=== PATIENT | male | born 1975 | race Two or more races ===

== ENCOUNTER → 2017-01-09 | Outpatient (REF) | payer OTHER | LOC: M SMT 13:07 | PROVIDERS: ATTEND Urology | DX: Z30.2 Encounter for sterilization (principal) ==

== ENCOUNTER → 2017-04-05 | Outpatient (REF) | payer OTHER ==
[2017-04-05 13:21] LABS: IMMMOTILE SPERM CENTRIFUGED ABSENT (ABSENT); IMMOTILE SPERM ABSENT (ABSENT); MOTILE SPERM ABSENT (ABSENT); MOTILE SPERM CENTRIFUGED ABSENT (ABSENT)
== END ==
LOC: M SMT 12:48
PROVIDERS: ATTEND Urology
DX: Z98.52 Vasectomy status (principal)

== ENCOUNTER 2018-01-27 20:23 | Emergency (ER) | payer OTHER ==
[2018-01-27 21:17] LABS: BASO % 0.4 % (0.0-1.0); EOS # 0.1 10^3/uL (0.0-0.50); EOS % 1.3 % (0.0-3.0); HEMATOCRIT 43.6 % (42.0-52.0); HEMOGLOBIN 15.2 g/dl (13.5-17.5); LYMPH # 1.5 10^3/uL (1.5-4.5); LYMPH % 31.7 % (24.0-44.0); MEAN CORPUSCULAR HEMOGLOBIN 29.6 pg (27.0-33.0); MEAN CORPUSCULAR HGB CONC 34.9 g/dl (32.0-36.5); MONO # 0.3 10^3/uL (0.0-0.8); MONO % 5.4 % (0.0-5.0); NEUTROPHILS # 2.8 10^3/uL (1.8-7.7); NEUTROPHILS % 61.2 % (36.0-66.0); PLATELET COUNT, AUTOMATED 159 10^3/uL (150-450); RED BLOOD COUNT 5.13 10^6/uL (4.30-6.10); RED CELL DISTRIBUTION WIDTH 12.1 % (11.5-14.5); WHITE BLOOD COUNT 4.6 10^3/uL (4.0-10.0)
[2018-01-27 21:21] LABS: INR 0.94; PROTHROMBIN TIME 12.7 SECONDS (12.1-14.4)
[2018-01-27 21:22] LABS: PARTIAL THROMBOPLASTIN TIME 29.7 SECONDS (25.4-37.6)
[2018-01-27 21:34] LABS: ANION GAP 9 MEQ/L (8-16); BLOOD UREA NITROGEN 14 MG/DL (7-18); C REACTIVE PROTEIN QUANTITATIV < 0.30 MG/DL (0.00-0.30); CALCIUM LEVEL 8.2 MG/DL (8.5-10.1); CARBON DIOXIDE LEVEL 27 MEQ/L (21-32); CHLORIDE LEVEL 108 MEQ/L (98-107); CPK CREATINE PHOSPHOKINASE 191 U/L (39-308); CREATININE FOR GFR 1.04 MG/DL (0.70-1.30); GLOMERULAR FILTRATION RATE > 60.0 (>60); GLUCOSE, FASTING 106 MG/DL (70-100); POTASSIUM SERUM 3.5 MEQ/L (3.5-5.1); SODIUM LEVEL 144 MEQ/L (136-145); TROPONIN I < 0.02 NG/ML (< 0.10)
[2018-01-27] MEDS ORDERED: ISOVUE-370 76% 100ML VIAL (Q9967) As Ordered (21:44)
[2018-01-27] MEDS: GI COCKTAIL 50ML BTL(HYOSCYAMINE/MAALOX/LIDOCAINE VISCOUS)(1:3:1) PO (21:45)
[2018-01-27] MEDS: NS 1,000 ML IV (23:23)
[2018-01-27 23:41] LABS: CPK CREATINE PHOSPHOKINASE 175 U/L (39-308); MB/CK RELATIVE INDEX 1.09 (< OR =4); TROPONIN I < 0.02 NG/ML (< 0.10)
== END 2018-01-28 00:17 | disposition home or self-care (01) ==
LOC: M ED 01-28 00:17
DX: R07.89 Other chest pain (principal); Q23.1 Congenital insufficiency of aortic valve; K21.9 Gastro-esophageal reflux disease without esophagitis; I71.2 Thoracic aortic aneurysm, without rupture; Z79.899 Other long term (current) drug therapy; Z88.8 Allergy status to other drugs, medicaments and biological substances; J30.81 Allergic rhinitis due to animal (cat) (dog) hair and dander
CPT/HCPCS: Q9967

== ENCOUNTER 2018-07-22 07:08 | Emergency (ER) | payer OTHER ==
[~2018-07-22] VITALS: Ht 205.7 cm; Wt 98.6 kg
[~2018-07-22 07:08] MED LIST: IBUP-1114 PO
[2018-07-22] MEDS ORDERED: VITA-112 PO (07:16)
[2018-07-22] MEDS ORDERED: PROBCAP14 PO (07:16)
[2018-07-22] MEDS ORDERED: VITA1TAB23 PO (07:16)
[2018-07-22 08:21] LABS: INFLUENZA A AMPLIFICATION NEGATIVE (NEGATIVE); INFLUENZA B AMPLIFICATION NEGATIVE (NEGATIVE)
--- NOTE | 2018-07-22 08:33 | REP ---
Clinical: Acute chest pain . Comparison: None . Technique: PA and lateral. Findings: The mediastinum and cardiac silhouette are normal. The lung yen are clear and without acute consolidation, effusion, or pneumothorax. The skeletal structures are intact and normal. Impression: 1. No acute cardiopulmonary process. Electronically Signed by Hipolito Olivarez MD 07/22/2018 08:25 A
[2018-07-22 08:37] VITALS: BP 123/83
--- NOTE | 2018-07-22 12:35 | ECGEPIP ---
Stationary ECG Study [facility] - ED Test Date: 2018-07-22 Pat Name: JALEN JIMENEZ Department: Room: - Gender: M Manager Discovery: : 1975 Requested By: MAGALY Riley PA-C Order Number: [id number] Reading MD: Miriam Beltran Measurements Intervals Mather Rate: 81 P: 48 NM: 171 QRS: 1 QRSD: 90 T: 34 QT: 355 QTc: 412 Interpretive Statements SINUS RHYTHM NONSPECIFIC STT WAVE CHANGES CW 01/27/[address] T WAVE CHANGES Electronically Signed On 07-22-2018 12:35:29 EDT by Miriam Beltran
[2018-07-24] MEDS ORDERED: MAGN400T2 (18:05)
== END 2018-07-22 08:36 | disposition home or self-care (01) ==
LOC: M ED 07:08
DX: K52.9 Noninfective gastroenteritis and colitis, unspecified (principal); R94.31 Abnormal electrocardiogram [ECG] [EKG]; Z98.890 Other specified postprocedural states

== ENCOUNTER 2020-05-13 11:49 | Day surgery (SDC) | payer OTHER ==
[~2020-05-13] VITALS: Ht 205.7 cm; Wt 96.5 kg
[~2020-05-13 11:49] MED LIST changes: +MAGN400T2; +METO25TA4; +NS 1,000 ML IV ONE; +OMEP20TA9 PO; +PROBCAP14 PO; +SERT25TA21; +VITA-112 PO; +VITA250T20 PO; +WARF-23 PO
--- OUTSIDE RECORDS SUMMARY | 2020-05-13 11:55 | CCD ---
Author Author [facility] Organization [facility] Address Unknown Phone Unavailable Care Team Providers Care Pipe [address] Service Name Role Phone Mariela MARIN MD Unavailable Unavailable Mariela MARIN MD Unavailable Unavailable Mariela MARIN MD Unavailable Unavailable Mariela MARIN MD Unavailable Unavailable Marilea MARIN MD Unavailable Unavailable Mariela MARIN MD Unavailable Unavailable Mairela MARIN MD Unavailable Unavailable Mariela MARIN MD Unavailable Unavailable Mariela MARIN MD Unavailable Unavailable Mariela MARIN MD Unavailable Unavailable Mariela MARIN MD Unavailable Unavailable Mariela MARIN MD Unavailable Unavailable Mariela MARIN MD Unavailable Unavailable Mariela MARIN MD Unavailable Unavailable Mariela MARIN MD Unavailable Unavailable Mariela MARIN MD Unavailable Unavailable Mariela MARIN MD Unavailable Unavailable Mariela MARIN MD Unavailable Unavailable Mariela MARIN MD Unavailable Unavailable Mariela MARIN MD Unavailable Unavailable Mariela MARIN MD Unavailable Unavailable Mariela MARIN MD Unavailable Unavailable Mariela MARIN MD Unavailable Unavailable Mariela MARIN MD Unavailable Unavailable Mariela MARIN MD Unavailable Unavailable Mariela MARIN MD Unavailable Unavailable Mariela MARIN MD Unavailable Unavailable Mariela MARIN MD Unavailable Unavailable Mariela MARIN MD Unavailable Unavailable Mariela MARIN MD Unavailable Unavailable Mariela MARIN MD Unavailable Unavailable Mariela MARIN MD Unavailable Unavailable Mariela MARIN MD Unavailable Unavailable Mariela MARIN MD Unavailable Unavailable Mariela MARIN MD Unavailable Unavailable Mariela MARIN MD Unavailable Unavailable Mariela MARIN MD Unavailable Unavailable CarlitoolavskyEfeFernando Unavailable Unavailable Nikolavsky Fernando MD Unavailable Unavailable Nikolavsky Fernando MD Unavailable Unavailable Nikolavsky, Fernando MD Unavailable Unavailable Nikolavsky Fernando MD Unavailable Unavailable Nikolavsky Fernando MD Unavailable Unavailable Nikolavsky Fernando MD Unavailable Unavailable Nikolavsky Fernando MD Unavailable Unavailable Nikolavsky Fernando MD Unavailable Unavailable Nikolavsky Fernando MD Unavailable Unavailable Nikolavsky Fernando MD Unavailable Unavailable Nikolavsky Fernando MD Unavailable Unavailable Nikolavsky Fernando MD Unavailable Unavailable Nikolavsky Fernando MD Unavailable Unavailable Nikolavsky Fernando MD Unavailable Unavailable Nikolavsky Fernando MD Unavailable Unavailable Nikolavsky Fernando MD Unavailable Unavailable Nikolavsky Fernando MD Unavailable Unavailable Nikolavsky Fernando MD Unavailable Unavailable Nikolavsky Fernando MD Unavailable Unavailable Carlitoolavsky Fernando MD Unavailable Unavailable Nikolavsky Fernando MD Unavailable Unavailable Nikolavsky Fernando MD Unavailable Unavailable Nikolavsky Fernando MD Unavailable Unavailable Nikolavsky Fernando MD Unavailable Unavailable Nikolavsky Fernando MD Unavailable Unavailable Nikolavsky Fernando MD Unavailable Unavailable Nikolavsky Fernando MD Unavailable Unavailable Nikolavsky Fernando MD Unavailable Unavailable Nikolavsky Fernando MD Unavailable Unavailable Nikolavsky Fernando MD Unavailable Unavailable Nikolavsky Fernando MD Unavailable Unavailable Nikolavsky Fernando MD Unavailable Unavailable Nikolavsky Fernando MD Unavailable Unavailable Nikolavsky Fernando MD Unavailable Unavailable Nikolavsky, Fernando MD Unavailable Unavailable Nikolavsky Fernando MD Unavailable Unavailable Nikolavsky Fernando MD Unavailable Unavailable Nikolavsky, Fernando MD Unavailable Unavailable Fernando Hughes MD Unavailable Unavailable Fernando Hughes MD Unavailable Unavailable Fernando Hughes MD Unavailable Unavailable Fernando Hughes MD Unavailable Unavailable Fernando Hughes MD Unavailable Unavailable Fernando Hughes MD Unavailable Unavailable Fernando Hughes MD Unavailable Unavailable COFFEY, BOOKMOBILE LIBRARIAN GARRETT BOOKMOBILE LIBRARIAN Unavailable COFFEY, BOOKMOBILE LIBRARIAN GARRETT BOOKMOBILE LIBRARIAN Unavailable COFFEY, BOOKMOBILE LIBRARIAN GARRETT BOOKMOBILE LIBRARIAN Unavailable COFFEY, BOOKMOBILE LIBRARIAN GARRETT BOOKMOBILE LIBRARIAN Unavailable Claude Martin MD Unavailable Unavailable Claude Martin MD Unavailable Unavailable Claude Martin MD Unavailable Unavailable Claude Martin MD Unavailable Unavailable Claude Martin MD Unavailable Unavailable Claude Martin MD Unavailable Unavailable Claude Martin MD Unavailable Unavailable Claude Martin MD Unavailable Unavailable Jose Maria Grullon MD Unavailable Unavailable Jose Maria Grullon MD Unavailable Unavailable Jose Maria Grullon MD Unavailable Unavailable Jose Maria Grullon MD Unavailable Unavailable Jose Maria Grullon MD Unavailable Unavailable Jose Maria Grullon MD Unavailable Unavailable Jose Maria Grullon MD Unavailable Unavailable Jose Maria Grullon MD Unavailable Unavailable Jose Maria Grullon MD Unavailable Unavailable Jose Maria Grullon MD Unavailable Unavailable Jose Maria Grullon MD Unavailable Unavailable Jose Maria Grullon MD Unavailable Unavailable Jose Maria Grullon MD Unavailable Unavailable Jose Maria Grullon MD Unavailable Unavailable Jose Maria Grullon MD Unavailable Unavailable Jose Maria Grullon MD Unavailable Unavailable Jose Maria Grullon MD Unavailable Unavailable Jose Maria Grullon MD Unavailable Unavailable Jose Maria Grullon MD Unavailable Unavailable Jose Maria Grullon MD Unavailable Unavailable Jose Maria Grullon MD Unavailable Unavailable Jose Maria Grullon MD Unavailable Unavailable Jose Maria Grullon MD Unavailable Unavailable Jose Maria Grullon MD Unavailable Unavailable Jose Maria Grullon MD Unavailable Unavailable Jose Maria Grullon MD Unavailable Unavailable Jose Maria Grullon MD Unavailable Unavailable Jose Maria Grullon MD Unavailable Unavailable Jose Maria Grullon MD Unavailable Unavailable Jose Maria Grullon MD Unavailable Unavailable Jose Maria Grullon MD Unavailable Unavailable Jose Maria Grullon MD Unavailable Unavailable Jose Maria Grullon MD Unavailable Unavailable Jose Maria Grullon MD Unavailable Unavailable Jose Maria Grullon MD Unavailable Unavailable Jose Maria Grullon MD Unavailable Unavailable Jose Maria Grullon MD Unavailable Unavailable Jose Maria Grullon MD Unavailable Unavailable Jose Maria Grullon MD Unavailable Unavailable Jose Maria Grullon MD Unavailable Unavailable Jose Maria Grullon MD Unavailable Unavailable Jose Maria Grullon MD Unavailable Unavailable Jose Maria Grullon MD Unavailable Unavailable Jose Maria Grullon MD Unavailable Unavailable Jose Maria Grullon MD Unavailable Unavailable Jose Maria Grullon MD Unavailable Unavailable Jose Maria Grullon MD Unavailable Unavailable Jose Maria Grullon MD Unavailable Unavailable Jose Maria Grullon MD Unavailable Unavailable Jose Maria Grullon MD Unavailable Unavailable Jose Maria Grullon MD Unavailable Unavailable Jose Maria Grullon MD Unavailable Unavailable Jose Maria Grullon MD Unavailable Unavailable Jose Maria Grullon MD Unavailable Unavailable Jose Maria Grullon MD Unavailable Unavailable Jose Maria rGullon MD Unavailable Unavailable Jose Maria Grullon MD Unavailable Unavailable Jose Maria Grullon MD Unavailable Unavailable Jose Maria Grullon MD Unavailable Unavailable Jose Maria Grullon MD Unavailable Unavailable Jose Maria Grullon MD Unavailable Unavailable Jose Maria Grullon MD Unavailable Unavailable Jose Maria Grullon MD Unavailable Unavailable Jose Maria Grullon MD Unavailable Unavailable TURRIN, HOLLY Unavailable Unavailable TURRIN, HOLLY Unavailable Unavailable TURRIN, HOLLY Unavailable Unavailable TURRIN, HOLLY Unavailable Unavailable Rona, J Nelson PA-C Unavailable Unavailable Rona, J Nelson PA-C Unavailable Unavailable Rona, J Nelson PA-C Unavailable Unavailable Rona, J Nelson PA-C Unavailable Unavailable Rona, J Nelson PA-C Unavailable Unavailable Rona, J Nelson PA-C Unavailable Unavailable Rona, J Nelson PA-C Unavailable Unavailable Rona, J Nelson PA-C Unavailable Unavailable Rona, J Nelson PA-C Unavailable Unavailable Rona, J Nelson PA-C Unavailable Unavailable Rona, J Nelson PA-C Unavailable Unavailable Pedro, Brian PA Unavailable Unavailable Hartington, Brian PA Unavailable Unavailable Pedro, Brian PA Unavailable Unavailable Pedro, Brian PA Unavailable Unavailable Hartington, Brian PA Unavailable Unavailable Pedro, Brian PA Unavailable Unavailable Hartington, Brian PA Unavailable Unavailable Hartington, Brian PA Unavailable Unavailable Pedro, Brian PA Unavailable Unavailable Hartington, Brian PA Unavailable Unavailable Pedro, Brian PA Unavailable Unavailable Hartington, Brian PA Unavailable Unavailable Hartington, Brian PA Unavailable Unavailable Pedro, Brian PA Unavailable Unavailable Hartington, Brian PA Unavailable Unavailable Pedro, Brian PA Unavailable Unavailable Pedro, Brian PA Unavailable Unavailable Pedro, Brian PA Unavailable Unavailable Hartington, Brian PA Unavailable Unavailable Pedro, Brian PA Unavailable Unavailable Hartington, Brian PA Unavailable Unavailable Hartington, Brian PA Unavailable Unavailable Hartington, Brian PA Unavailable Unavailable Hartington, Brian PA Unavailable Unavailable Pedro, Brian PA Unavailable Unavailable Pedro, Brian PA Unavailable Unavailable Hartington, Brian PA Unavailable Unavailable Mikie Redding MD Unavailable Unavailable Mikie Redding MD Unavailable Unavailable Mikie Redding MD Unavailable Unavailable Mikie Redding MD Unavailable Unavailable Mikie Redding MD Unavailable Unavailable Mikie Redding MD Unavailable Unavailable Mikie Redding MD Unavailable Unavailable Mikie Redding MD Unavailable Unavailable Mikie Redding MD Unavailable Unavailable Mikie Redding MD Unavailable Unavailable Mikie Redding MD Unavailable Unavailable MAXINE BARBOSA MD Unavailable Unavailable MAXINE BARBOSA MD Unavailable Unavailable MAXINE BARBOSA MD Unavailable Unavailable MAXINE BARBOSA MD Unavailable Unavailable MAXINE BARBOSA MD Unavailable Unavailable MAXINE BARBOSA MD Unavailable Unavailable MAXINE BARBOSA MD Unavailable Unavailable MAXINE BARBOSA MD Unavailable Unavailable MAXINE BARBOSA MD Unavailable Unavailable MAXINE BARBOSA MD Unavailable Unavailable MAXINE BARBOSA MD Unavailable Unavailable MAXINE BARBOSA MD Unavailable Unavailable MAXINE BARBOSA MD Unavailable Unavailable MAXINE BARBOSA MD Unavailable Unavailable MAXINE BARBOSA MD Unavailable Unavailable MAXINE BARBOSA MD Unavailable Unavailable MAXINE BARBOSA MD Unavailable Unavailable MAXINE BARBOSA MD Unavailable Unavailable MAXINE BARBOSA MD Unavailable Unavailable MAXINE BARBOSA MD Unavailable Unavailable MAXINE BARBOSA MD Unavailable Unavailable MAXINE BARBOSA MD Unavailable Unavailable MAXINE BARBOSA MD Unavailable Unavailable MAXINE BARBOSA MD Unavailable Unavailable MAXINE BARBOSA MD Unavailable Unavailable MAXINE BARBOSA MD Unavailable Unavailable MAXINE BARBOSA MD Unavailable Unavailable MAXIEN BARBOSA MD Unavailable Unavailable MAXINE BARBOSA MD Unavailable Unavailable CHELSEY, MAXINE JACOB Unavailable Unavailable CHELSEY, MAXINE JACOB Unavailable Unavailable CHELSEY, GOODMAN MD Unavailable Unavailable CHELSEY, GOODMAN MD Unavailable Unavailable CHELSEY, GOODMAN MD Unavailable Unavailable CHELSEY, GOODMAN MD Unavailable Unavailable CHELSEY, GOODMAN MD Unavailable Unavailable CHELSEY, GOODMAN MD Unavailable Unavailable CHELSEY, GOODMAN MD Unavailable Unavailable CHELSEY, GOODMAN MD Unavailable Unavailable CHELSEY, GOODMAN MD Unavailable Unavailable CHELSEY, GOODMAN MD Unavailable Unavailable CHELSEY, GOODMAN MD Unavailable Unavailable CHELSEY, GOODMAN MD Unavailable Unavailable CHELSEY, GOODMAN MD Unavailable Unavailable CHELSEY, GOODMAN MD Unavailable Unavailable CHELSEY, GOODMAN MD Unavailable Unavailable CHELSEY, GOODMAN MD Unavailable Unavailable CHELSEY, GOODMAN MD Unavailable Unavailable CHELSEY, GOODMAN MD Unavailable Unavailable CHELSEY, GOODMAN MD Unavailable Unavailable CHELSEY, GOODMAN MD Unavailable Unavailable CHELSEY, GOODMAN MD Unavailable Unavailable CHELSEY, GOODMAN MD Unavailable Unavailable CHELSEY, GOODMAN MD Unavailable Unavailable ESTEVAN, RILEY PA Unavailable Unavailable ESTEVAN, RILEY PA Unavailable Unavailable ESTEVAN, RILEY PA Unavailable Unavailable ESTEVAN, RILEY PA Unavailable Unavailable ESTEVAN, RILEY PA Unavailable Unavailable ESTEVAN, RILEY PA Unavailable Unavailable ESTEVAN, RILEY PA Unavailable Unavailable ESTEVAN, RILEY PA Unavailable Unavailable ESTEVAN, RILEY PA Unavailable Unavailable ESTEVAN, RILEY PA Unavailable Unavailable ESTEVAN, RILEY PA Unavailable Unavailable ESTEVAN, RILEY PA Unavailable Unavailable ESTEVAN, RILEY PA Unavailable Unavailable ESTEVAN, RILEY PA Unavailable Unavailable Zumpano, M Nhi BOOKMOBILE LIBRARIAN Unavailable Unavailable Zumpano, M Nhi BOOKMOBILE LIBRARIAN Unavailable Unavailable Zumpano, M Nhi BOOKMOBILE LIBRARIAN Unavailable Unavailable Zumpano, M Nhi BOOKMOBILE LIBRARIAN Unavailable Unavailable Zumpano, M Nhi BOOKMOBILE LIBRARIAN Unavailable Unavailable Zumpano, M Nhi BOOKMOBILE LIBRARIAN Unavailable Unavailable Zumpano, M Nhi BOOKMOBILE LIBRARIAN Unavailable Unavailable Zumpano, M Nhi BOOKMOBILE LIBRARIAN Unavailable Unavailable Zumpano, M Nhi BOOKMOBILE LIBRARIAN Unavailable Unavailable Zumpano, M Nhi BOOKMOBILE LIBRARIAN Unavailable Unavailable Mariela REIS MD Unavailable Unavailable Mariela REIS MD Unavailable Unavailable Mariela REIS MD Unavailable Unavailable Mariela REIS MD Unavailable Unavailable Mariela REIS MD Unavailable Unavailable Mariela REIS MD Unavailable Unavailable Mariela REIS MD Unavailable Unavailable Mariela REIS MD Unavailable Unavailable Mariela REIS MD Unavailable Unavailable Re-disclosure Warning The records that you are about to access may contain information from federally-assisted alcohol or drug abuse programs. If such information is present, then the following federally mandated warning applies: This information has been disclosed to you from records protected by federal confidentiality rules (42 CFR part 2). The federal rules prohibit you from making any further disclosure of this information unless further disclosure is expressly permitted by the written consent of the person to whom it pertains or as otherwise permitted by 42 CFR part 2. A general authorization for the release of medical or other information is NOT sufficient for this purpose. The Federal rules restrict any use of the information to criminally investigate or prosecute any alcohol or drug abuse patient.The records that you are about to access may contain highly sensitive health information, the redisclosure of which is protected by Article 27-F of the [facility] Public Health law. If you continue you may have access to information: Regarding HIV / AIDS; Provided by facilities licensed or operated by the [facility] Office of Mental Health; or Provided by the [facility] Office for People With Developmental Disabilities. If such information is present, then the following [facility] mandated warning applies: This information has been disclosed to you from confidential records which are protected by state law. State law prohibits you from making any further disclosure of this information without the specific written consent of the person to whom it pertains, or as otherwise permitted by law. Any unauthorized further disclosure in violation of state law may result in a fine or alf sentence or both. A general authorization for the release of medical or other information is NOT sufficient authorization for further disc losure. Allergies and Adverse Reactions Type Description Substance Reaction Status Data Source(s ) Drug Class NO KNOWN ALLERGIES NO KNOWN ALLERGIES [facility] Family History Family Member Name Family Member Gender Family Member Status Date o f Status Description Data Source(s) Unknown Unknown Problem [facility]ENT ([facility] Unknown Unknown Problem MED[facility] ([facility]) Encounters Encounter Providers Location Date Indications Data Source(s ) Outpatient Attender: Fernando Hughes MD 12/14/2020 12:0 0:00 AM [facility] Outpatient Attender: GARRETT COFFEY NP 06/03/2020 12:00:0 0 AM [facility] Outpatient Attender: MAXINE BARBOSA MD [email or web address] 02/14/2020 12:00:00 AM EDT [facility] Outpatient Attender: Fernando Hughes MD [id number] 12/16/2019 12:00:00 AM EDT - 12/16/2019 10:28:53 AM EDT Unspecified urethral stricture, male, [facility] Unspecified urethral stricture, male, [facility] at[facility] Emergency Attender: Nelson Rea PA-C 02:03:00 PM EDT - 11/19/2019 03:53:00 PM EDT [facility] Patient discharged. Outpatient Attender: MAXINE VALDEZ.[email or web address] 0 12:00:00 AM EDT - 10/30/2019 10:06:12 AM EDT [facility] Outpatient Attender: Fernando Hughes MD 10/28/2019 12:0 0:00 AM [facility] Outpatient Attender: Fernando Hughes MD 10/15/2019 12:0 0:00 AM [facility] Emergency Attender: HOLLY VILLALOBOS 2019 04:42:00 PM EDT - 09/03/2019 05:07:00 PM EDT [facility] Patient discharged. Emergency Attender: AYO REIS MD 08/24 03:33:00 PM EDT - 08/25/2019 04:49:00 PM EDT [facility] Patient discharged. Outpatient Attender: MAXINE VALDEZ.[email or web address] 0 12:00:00 AM EDT - 08/21/2019 12:59:35 PM EDT [facility] Outpatient [email or web address] 08/06/2019 11:14 :07 AM EDT - 08/06/2019 12:05:24 PM EDT [facility] Outpatient [email or web address] 07/24/2019 12:00:00 AM EDT [facility] Outpatient [email or web address] 07/17/2019 09:21:23 AM EDT [facility] Emergency Attender: AYO REIS MD 07/13 09:24:00 AM EDT - 07/14/2019 02:38:00 PM EDT [facility] Patient discharged. Outpatient [email or web address] 07/10/2019 12:00:00 AM EDT [facility] Outpatient [email or web address] 06/26/2019 09:22:06 AM EST [facility] Outpatient Attender: Fernando Hughes MD [id number] 06/19/2019 12:00:00 AM EST - 06/19/2019 11:15:49 AM EST Unspecified urethral stricture, male, meatal [facility] Unspecified urethral stricture, male, [facility] at[facility] Outpatient [email or web address] 06/12/2019 12:00:00 AM EST [facility] Outpatient [email or web address] 06/05/2019 12:00:00 AM EST [facility] Outpatient Attender: GARRETT COFFEY NP [id number] 01/2020 12:00:00 AM EST - 06/03/2019 11:07:27 AM [facility] Outpatient [email or web address] 05/27/2019 12:00:00 AM EST [facility] Outpatient Attender: MAXINE BARBOSA MD [email or web address] 0 12:00:00 AM EST - 05/22/2019 11:10:11 AM EST [facility] Outpatient [email or web address] 05/20/2019 12:00:00 AM EST [facility] Inpatient Attender: Ed Grullon MDAdmit ter: Ed Grullon MDReferrer: Nhi Mclaughlin NP [id number] 05/10/2019 12:00:00 AM EST - 05/18/2019 12:27:00 PM EST Aortic aneurysm of unspecified site, without rupture [facility] Aortic aneurysm of unspecified site, wit hout rupture Patient discharged. Outpatient Referrer: RILEY ANDRES 05/10/2019 12:00:00 AM [facility] Outpatient Attender: Ed Grullon MD [id number] 05/02/19 20 12:00:00 AM EST - 05/02/2019 03:41:37 PM EST Thoracic aortic aneurysm, without rupture [facility] Thoracic aortic aneurysm, without ruptur e Outpatient Attender: Perla Redding MDReferrer: Ed Grullon MD 05/02/2019 12:00:00 AM EST - 05/03/2019 12:00:00 AM EST pretest [facility] pretest Outpatient Referrer: Brian ANDRES 05/02/2019 12:00:00 AM EST Thoracic aortic aneurysm, without rupture [facility] Thoracic aortic aneurysm, without ruptur e Outpatient Referrer: Brian ANDRES 05/02/2019 12:00:00 AM EST Thoracic aortic aneurysm, without rupture [facility] Thoracic aortic aneurysm, without ruptur e Outpatient Referrer: Brian ANDRES 05/02/2019 12:00:00 AM EST Thoracic aortic aneurysm, without rupture [facility] Thoracic aortic aneurysm, without ruptur e Outpatient Referrer: Brian ANDRES 05/02/2019 12:00:00 AM EST Thoracic aortic aneurysm, without rupture [facility] Thoracic aortic aneurysm, without ruptur e Referrer: Jose Martin MD 04/25/2019 08:20:01 P M EST [facility] 04/25/2019 08:20:01 PM EST [facility] 04/22/2019 08:19:12 PM EST [facility] Outpatient Attender: Ed Grullon MDReferrer: ANAHI MARIN MD [id number] 03/07/2019 12:00:00 AM EST - 03/12/2019 01:43:43 PM EST Thoracic aortic aneurysm, without rupture [facility] Thoracic aortic aneurysm, without ruptur e Medications Medication Brand Name Start Date Product Form Dose Route Admi nistrative Instructions Pharmacy Instructions Status Indications Reaction Description Data Source(s) 100 mg/mL 05/09/2020 12:00:00 AM EST syringe 4 INJECT 0.9 ML (90 MG) SUBCUTANEOUSLY IN THE MORNING AND IN THE EVENING ON 05/11 THEN 1 DOSE 05/12 NO ENOXAPARIN 1/20 IN THE MORNING AND IN THE EVENING ON 05/14 DIRECTED INJECT 0.9 ML (90 MG) SUBCUTANEOUSLY IN THE MORNING AND IN THE EVENING ON 05/11 THEN 1 DOSE 05/12 NO ENOXAPARIN 1/20 IN THE MORNING AND IN THE EVENING ON 05/14 DIRECTED SOLD: 05/09/2020 [facility] Sertraline 25 MG Oral Tablet Sertraline HCl 25 MG Oral Tablet (ZOLOFT) Sertraline HCl 25 MG Oral Tablet (ZOLOFT) 12/13/2019 12:00:00 AM EDT 50 mg Oral active Take 50 mg by mouth Daily [facility] 24 HR metoprolol succinate 25 MG Extende d Release Oral Tablet Metoprolol Succinate ER 25 MG Oral Tablet Extended Release 24 Hour (TOPROL XL) Metoprolol Succinate ER 25 MG Oral Tablet Extended Release 24 Hour (TOPROL XL) 06/04/2019 12:00:00 AM EST 25 mg Oral active Take 1 t ablet by mouth daily [facility] Aspirin 81 MG Delayed Release Oral Table t Aspirin 81 MG Oral Tablet Delayed Release Aspirin 81 MG Oral Tablet Delayed Release 05/19/2019 12:00:00 AM EST 81 mg Oral aborted Take 1 tablet by mouth d [facility] Folic Acid 1 MG Oral Tablet Folic Acid 1 MG Oral Table t (FOLVITE) Folic Acid 1 MG Oral Tablet (FOLVITE) 05/19/2019 12:00:00 AM EST 1 mg Oral aborted Take 1 tablet by mouth daily [facility] Ascorbic Acid 500 MG Oral Tablet Ascorbic Acid 500 MG Oral Tablet (VITAMIN C) Ascorbic Acid 500 MG Oral Tablet (VITAMIN C) 05/19/2019 12:00:00 AM EST 500 mg Oral aborted Take 1 tablet by mouth d [facility] Oseltamivir 75 MG Oral Capsule Oseltamiv ir Phosphate 75 MG Oral Capsule (TAMIFLU) Oseltamivir Phosphate 75 MG Oral Capsule (TAMIFLU) 12:00:00 AM EST 75 mg Oral active Take 1 capsule by mouth daily for 10 days [facility] ferrous sulfate 325 MG Oral Tablet Ferrous Sulfate 325 (65 Fe) MG Oral Tablet Ferrous Sulfate 325 (65 Fe) MG Oral Tablet 05/18/2019 12:00:00 AM EST 325 mg Oral aborted Take 1 tablet by karla th Two times daily with meals [facility] Warfarin Sodium 5 MG Oral Tablet Warfarin Sodium 5 MG Oral Tablet (COUMADIN) Warfarin Sodium 5 MG Oral Tablet (COUMADIN) 05/18/2019 12:00:00 AM EST 5 mg Oral active Take 1 tablet by karla th daily [facility] Acetaminophen 325 MG Oral Tablet Acetaminophen 325 MG Oral T ablet 05/18/2019 12:00:00 AM EST 650 mg Oral active Take 2 tablets by mouth every 6 (six) hours as needed for Pain for up to 10 days [facility] Metoprolol Tartrate 25 MG Oral Tablet Me toprolol Tartrate 25 MG Oral Tablet (LOPRESSOR) Metoprolol Tartrate 25 MG Oral Tablet (LOPRESSOR) 04/25 12:00:00 AM EST 25 mg Oral active Take 1 tablet by mouth Two Times Daily [facility] Warfarin Sodium 5 MG Oral Tablet warfarin (COUMADIN) t ablet 10 mg warfarin (COUMADIN) tablet 10 mg 05/17/2019 09:00:00 PM EST 10 mg Oral active 10 mg, Oral, Once, Mon05/17/19 at 2100, For 1 dose
Hold enteral nutrition at least 1 hour before and 2 hours after doseCategory X drug
[facility] Medication administered onsite Oseltamivir 75 MG Oral Capsule oseltamivir (TAMIFLU) c apsule 75 mg oseltamivir (TAMIFLU) capsule 75 mg 05/17/2019 10:45:00 AM EST 75 mg Oral active 75 mg, Oral, Daily Standard, First dose on Mon05/17/19 at 1045, For 10 doses
For prophylaxis, antiviral drugs should be continued for the duration of known influenza A in the community because of the potential for repeated and unknown exposures or until immunity can be achieved by immunization.
[facility] Medication administered onsite Warfarin Sodium 5 MG Oral Tablet warfarin (COUMADIN) t ablet 5 mg warfarin (COUMADIN) tablet 5 mg 05/16/2019 09:00:00 PM EST 5 mg Oral active 5 mg, Oral, Once, Betty 05/16/19 at 2100, For 1 dose
Hold enteral nutrition at least 1 hour before and 2 hours after doseCategory X drug
[facility] Medication administered onsite warfarin (COUMADIN) tablet 7.5 mg 05/15/2019 09:00:00 PM EST 7.5 mg Oral active 7.5 mg, Oral, On ce, Mon05/15/19 at 2100, For 1 dose
Hold enteral nutrition at least 1 hour before and 2 hours after doseCategory X drug
[facility] Medication administered onsite warfarin (COUMADIN) tablet 7.5 mg 05/14/2019 09:00:00 PM EST 7.5 mg Oral active 7.5 mg, Oral, Ev karthik evening, First dose (after last modification) on Mon05/14/19 at 2100, For 1 dose
Hold enteral nutrition at least 1 hour before and 2 hours after doseCategory X drug
[facility] Medication administered onsite 500 ML heparin sodium, porcine 50 UNT/ML Injection heparin in NaCl 0.45 % infusion 50 units/mL heparin in NaCl 0.45 % infusion 50 units/mL 05/14/2019 10:00:00 AM EST 1200 U/h Intravenous aborted 1,200 Units/hr (24 mL/hr), Intravenous, at 24 mL/hr, Continuous, Starting Mon05/14/19 at 1000, For 30 days
Heparin Individualized Non-Protocol.
[facility] Medication administered onsite Warfarin Sodium 5 MG Oral Tablet warfarin (COUMADIN) t ablet 5 mg warfarin (COUMADIN) tablet 5 mg 05/13/2019 09:00:00 PM EST 5 mg Oral active 5 mg, Oral, Every evening, First dose (after last modification) on Mon05/13/19 at 2100, For 1 dose
Hold enteral nutrition at least 1 hour before and 2 hours after doseCategory X drug
[facility] Medication administered onsite 1 ML Ketorolac Tromethamine 30 MG/ML Car tridge ketorolac (TORADOL) injection 15 mg ketorolac (TORADOL) injection 15 mg 05/13/2019 02:00:00 PM EST 15 mg Intravenous completed 15 mg, Intrav enous, Every 6 hours, First dose on Mon05/13/19 at 1400, For 1 day [facility] Medication administered onsite Metoprolol Tartrate 25 MG Oral Tablet me toprolol tartrate (LOPRESSOR) tablet 25 mg metoprolol tartrate (LOPRESSOR) tablet 25 mg 05/13/2019 10:00:00 AM EST 25 mg Oral active 25 mg, Ora l, 2 Times Daily, First dose on Mon05/13/19 at 1000, For 30 days [facility] Medication administered onsite ferrous sulfate 325 MG Oral Tablet ferrous sulfate tab let 325 mg ferrous sulfate tablet 325 mg 05/13/2019 09:00:00 AM EST 325 mg Oral acti ve 325 mg, Oral, 2 Times Daily With Meals, First dose on Mon05/13/19 at 0900, For 30 days
Start POD 3
[facility] Medication administered onsite 1 ML Ketorolac Tromethamine 30 MG/ML Car tridge ketorolac (TORADOL) injection 30 mg ketorolac (TORADOL) injection 30 mg 05/13/2019 08:00:00 AM EST 30 mg Intravenous completed 30 mg, Intrav enous, Once, 05/13/19 at 0800, For 1 dose [facility] Medication administered onsite Warfarin Sodium 2 MG Oral Tablet warfarin (COUMADIN) t ablet 2 mg warfarin (COUMADIN) tablet 2 mg 05/12/2019 09:00:00 PM EST 2 mg Oral aborted 2 mg, Oral, Every evening, First dose on 05/12/19 at 2100, For 7 days
Hold enteral nutrition at least 1 hour before and 2 hours after doseCategory X drug
[facility] Medication administered onsite Acetaminophen 10 MG/ML Injectable Soluti on acetaminophen (OFIRMEV) infusion 1,000 mg acetaminophen (OFIRMEV) infusion 1,000 mg 05/12/2019 11:39:59 AM EST 1000 mg Intravenous completed 1,000 mg , Intravenous, Administer over 15 Minutes, Every 8 hours PRN, Fever, Starting 05/12/19 at 1139, For 1 day
Maximum dose 3 gm daily from all sources
[facility] Medication administered onsite Bisacodyl 10 MG Rectal Suppository bisacodyl (DULCOLAX ) suppository 10 mg bisacodyl (DULCOLAX) suppository 10 mg 05/12/2019 09:00:00 AM EST 10 mg Rectal active 10 mg, Rectal, Daily Standard, First dose on 05/12/19 at 0900, For 30 days
Start on POD 2. Hold if patient has had a BM in the past day.
[facility] Medication administered onsite Acetaminophen 10 MG/ML Injectable Soluti on acetaminophen (OFIRMEV) infusion 1,000 mg acetaminophen (OFIRMEV) infusion 1,000 mg 05/12/2019 03:00:00 AM EST 1000 mg Intravenous completed 1,000 mg , Intravenous, Administer over 15 Minutes, Once, 05/12/19 at 0300, For 1 dose
Maximum dose 3 gm daily from all sources
[facility] Medication administered onsite Acetaminophen 325 MG Oral Tablet acetaminophen (TYLENO L) tablet 650 mg acetaminophen (TYLENOL) tablet 650 mg 05/11/2019 07:09:23 PM EST 65 0 mg Oral completed 650 mg, Oral, G sena Now, Starting 05/11/19 at 1909, For 1 dose
Maximum daily dose of acetaminophen is 3,000 mg from all sources in 24 hours.
[facility] Medication administered onsite 1 ML Ketorolac Tromethamine 30 MG/ML Car tridge ketorolac (TORADOL) injection 30 mg ketorolac (TORADOL) injection 30 mg 05/11/2019 06:15:00 PM EST 30 mg Intravenous completed 30 mg, Intrav enous, Once, 05/11/19 at 1815, For 1 dose [facility] Medication administered onsite Hydralazine Hydrochloride 20 MG/ML Injec table Solution hydrALAZINE (APRESOLINE) injection 10 mg hydrALAZINE (APRESOLINE) injection 10 mg 05/11/2019 03 :00:00 PM EST 10 mg Intravenous aborted 10 m g, Intravenous, Every 4 hours PRN, Other, SBP >130, Starting 05/11/19 at 1500, For 72 hours
Dilute in 25-50 ml normal saline. Administer over 30 minutes.
[facility] Medication administered onsite Hydralazine Hydrochloride 20 MG/ML Injec table Solution hydrALAZINE (APRESOLINE) injection 10 mg hydrALAZINE (APRESOLINE) injection 10 mg 05/11/2019 12 :30:00 PM EST 10 mg Intravenous completed 10 mg, Intravenous, Once, 05/11/19 at 1230, For 1 dose
Dilute in 25-50 ml normal saline. Administer over 30 minutes.
[facility] Medication administered onsite tramadol hydrochloride 50 MG Oral Tablet tramadol (ULT WILLIE) tablet 50 mg tramadol (ULTRAM) tablet 50 mg 05/11/2019 12:00:00 PM EST 50 mg Oral completed 50 mg, Oral, Every 6 hours PRN, Moderate Pain (Pain Scale Score 4-6), Starting 05/11/19 at 1200, For 3 days [facility] Medication administered onsite 1 ML Ketorolac Tromethamine 30 MG/ML Car tridge ketorolac (TORADOL) injection 15 mg ketorolac (TORADOL) injection 15 mg 05/11/2019 10:30:00 AM EST 15 mg Intravenous completed 15 mg, Intrav enous, Once, 05/11/19 at 1030, For 1 dose [facility] Medication administered onsite fentaNYL (SUBLIMAZE) (PF) injection 25 mcg [id number] 05/11/2019 10:24:23 AM EST 25 ug Intravenous completed 25 mcg, Intravenous, Every 2 hours PRN, Severe Pain (Pain Scale Score 7-10), Starting 05/11/19 at 1024, For 2 days [facility] Medication administered onsite lidocaine (LIDODERM) 5 % 1 patch [id number] 05/11/2019 09:30:00 A M EST 1 {patch} Transdermal aborted 1 patch, Transdermal, Every 24 hours, First dose on 05/11/19 at 0930, For 30 days
Apply to chest wall12 hours on - 12 hours off
[facility] Medication administered onsite 2 ML Metoclopramide 5 MG/ML Prefilled Sy ringe metoclopramide (REGLAN) injection 10 mg metoclopramide (REGLAN) injection 10 mg 05/11/2019 09:30:[address] 10 mg Intravenous aborted 10 mg, I ntravenous, Every 6 hours, First dose on 05/11/19 at 0930, For 30 days [facility] Medication administered onsite 1 ML Ketorolac Tromethamine 30 MG/ML Car tridge ketorolac (TORADOL) injection 15 mg ketorolac (TORADOL) injection 15 mg 05/11/2019 09:15:00 AM EST 15 mg Intravenous completed 15 mg, Intrav enous, Once, 05/11/19 at 0915, For 1 dose [facility] Medication administered onsite Hydralazine Hydrochloride 20 MG/ML Injec table Solution hydrALAZINE (APRESOLINE) injection 10 mg hydrALAZINE (APRESOLINE) injection 10 mg 05/11/2019 09 :05:18 AM EST 10 mg Intravenous aborted 10 m g, Intravenous, Every 6 hours PRN, Other, Starting 05/11/19 at 0905, For 30 days
Dilute in 25-50 ml normal saline. Administer over 30 minutes.
[facility] Medication administered onsite heparin (porcine) 5000 UNIT/ML injection 5,000 Units [id number] 05/11/2019 09:00:00 AM EST 5000 U Subcutaneous aborted 5,000 Units, Subcutaneous, Every 8 hours, First dose on 05/11/19 at 0900, For 30 days
Start POD 1 - Hold for platelets < 90,000 or INR > 1.7
[facility] Medication administered onsite Ascorbic Acid 500 MG Oral Tablet vitamin C (ASCORBIC A SEN) tablet 500 mg vitamin C (ASCORBIC ACID) tablet 500 mg 05/11/2019 09:00:00 AM EST 500 mg O ral active 500 mg, Oral, Daily Standard, First dose on 05/11/19 at 0900, For 30 days
Start POD 1
[facility] Medication administered onsite Folic Acid 1 MG Oral Tablet folic acid (FOLVITE) table t 1 mg folic acid (FOLVITE) tablet 1 mg 05/11/2019 09:00:00 AM EST 1 mg Oral active 1 mg, Oral, Daily Standard, First dose on 05/11/19 at 0900, For 30 days
Start POD 1
[facility] Medication administered onsite Aspirin 81 MG Delayed Release Oral Tablet aspirin EC E C tablet 81 mg aspirin EC EC tablet 81 mg 05/11/2019 09:00:00 AM EST 81 mg Oral ac tive 81 mg, Oral, Daily Standard, First dose on 05/11/19 at 0900, For 30 days
Start POD 1 - Notify if platelets < 90,000
[facility] Medication administered onsite Acetaminophen 325 MG Oral Tablet acetaminophen (TYLENO L) tablet 650 mg acetaminophen (TYLENOL) tablet 650 mg 05/11/2019 09:00:00 AM EST 65 0 mg Oral completed 650 mg, Oral, E very 8 hours, First dose (after last modification) on 05/11/19 at 0900, For 1 dose
Maximum daily dose of acetaminophen is 3,000 mg from all sources in 24 hours
[facility] Medication administered onsite POLYETHYLENE GLYCOL 3350 142 MG/ML Oral Solution polyethylene glycol (MIRALAX) packet 17 g polyethylene glycol (MIRALAX) packet 17 g 05/11/2019 0 8:00:00 AM EST 17 g Oral active 17 g, Or al, Daily PRN, constipation, Starting 05/11/19 at 0800, For 30 days
Hold if patient has had a BM in the past 2 days
[facility] Medication administered onsite pantoprazole 40 MG Delayed Release Oral Tablet pantoprazole (PROTONIX) EC tablet 40 mg pantoprazole (PROTONIX) EC tablet 40 mg 05/11/2019 07:30:[address] 40 mg Oral active 40 mg, Ora l, Before Breakfast, First dose on 05/11/19 at 0730, For 30 days
Do not crush or chew
[facility] Medication administered onsite Regular Insulin, Human 100 UNT/ML Inject able Solution insulin regular (HumuLIN R,NovoLIN R) injection 2 Units insulin regular (HumuLIN R,NovoLIN R) in jection 2 Units 05/11/2019 03:15:00 AM EST 2 U Intravenous c ompleted ICU Hyperglycemia Protocol 2 Units, Intravenous, Once, Indications: ICU Hyperglycemia Protocol, 05/11/19 at 0315, For 1 dose [facility] ICU Hyperglycemia Protocol Medication administered onsite sennosides, SKILLED NURSING 8.6 MG Oral Tablet senna 8.6 MG 2 tablet sen na 8.6 MG 2 tablet 05/10/2019 10:00:00 PM EST 2 {tbl} Oral active 2 tablet, Oral, Nightly, First dose on Mon05/10/19 at 2200, For 30 days
Hold for loose stool
[facility] Medication administered onsite Melatonin 5 MG Oral Tablet melatonin tablet 5 mg melatonin t ablet 5 mg 05/10/2019 10:00:00 PM EST 5 mg Oral active 5 mg, Oral, Nightly, First dose on Mon05/10/19 at 2200, For 30 days [facility] Medication administered onsite Famotidine 0.4 MG/ML Injectable Solution famotidine (PEPCID) in sodium chloride 0.9 % IVPB 20 mg (premix) famotidine (PEPCID) in sodium chloride 0 .9 % IVPB 20 mg (premix) 05/10/2019 09:00:00 PM EST 20 mg Intravenous a borted 20 mg, Intravenous, Administer over 15 Minutes, 2 Times Daily, First dose on Mon05/10/19 at 2100, For 30 days
Pharmacy to dose. Discontinue after extubation.
[facility] Medication administered onsite Docusate Sodium 100 MG Oral Capsule docusate sodium (C OLACE) capsule 100 mg docusate sodium (COLACE) capsule 100 mg 05/10/2019 09:00:00 PM EST 100 mg Oral active 100 mg, Oral, 2 Times Daily, First dose on Mon05/10/19 at 2100, For 30 days
Start after extubation Hold for loose stool
[facility] Medication administered onsite lidocaine (LIDODERM) 5 % 1 patch [id number] 05/10/2019 08:00:00 P M EST 1 {patch} Transdermal aborted 1 patch, Transdermal, Every 24 hours, First dose on Mon05/10/19 at 2000, For 30 days
Apply to affected area12 hours on - 12 hours off
[facility] Medication administered onsite Cefazolin 1000 MG Injection ceFAZolin (ANCEF) IVPB 1 g in dextrose 5 % (premix) ceFAZolin (ANCEF) IVPB 1 g in dextrose 5 % (premix) 05/10/2019 08:00:00 PM EST 1 g Intravenous completed 1 g, Intra venous, Administer over 30 Minutes, Every 8 hours, First dose on Mon05/10/19 at 2000, For 36 hours
For patients < 60 kg
[facility] Medication administered onsite sodium chloride (preservative free) 0.9 % flush 3 mL 05/10/2019 05:00:00 PM EST 3 mL Intravenous active [Ord er 1 Start] Name: Peripheral IV Signed Summary: Routine, CONTINUOUS, Starting Mon05/10/19 at 1337, Until Mon06/09/19, For 30 days [Order 1 End] [Order 2 Start] Name: sodium chloride (preservative fr ee) 0.9 % flush 3 mL Signed Summary: 3 mL, Intravenous, Every 8 hours Standard (3 times per day), First dose on Mon05/10/19 at 1700, For 30 days
Saline Lock. Flush Q8H and after each use to Saline Lock.
[Order 2 End] [Order 3 Start] Name: sodium chloride (preservative free) 0.9 % flush 3 mL Signed Summary: 3 mL, Intravenous, PRN, Line Care, Starting Mon05/10/19 at 1336, For 30 days
Saline Lock. Flush Q8H and after each use to Saline Lock.
[Order 3 End] [Order 4 Start] Name: Saline Lock Order Signed Summary: Routine, ONCE, Mon05/10/19 at 1337, For 1 occurrence [Order 4 End] [facility] Medication administered onsite Acetaminophen 10 MG/ML Injectable Soluti on acetaminophen (OFIRMEV) infusion 1,000 mg acetaminophen (OFIRMEV) infusion 1,000 mg 05/10/2019 04:53:29 PM EST 1000 mg Intravenous completed 1,000 mg , Intravenous, Administer over 15 Minutes, Every 8 hours PRN, Fever, Mild Pain (Pain Scale Score 1-3), Starting Mon05/10/19 at 1653, For 1 day
Maximum dose 3 gm daily from all sources
[facility] Medication administered onsite aminocaproic acid (AMICAR) 20 mg/mL in sodium chloride 0.9 % 500 mL infusion 05/10/2019 01:45:00 PM EST 1 g/h Intravenous completed 1 g/hr (50 mL/hr), Intravenous, at 50 mL/hr, Continuous, Starting Mon05/10/19 at 1345, For 8 hours
For 8 hours or until the bag runs out.
[facility] Medication administered onsite chlorhexidine gluconate 1.2 MG/ML Mouthw brandin chlorhexidine (PERIDEX) 0.12 % solution 5 mL chlorhexidine (PERIDEX) 0.12 % solution 5 mL 0 01:45:00 PM EST 5 mL Mouth/Throat aborted 5 m L, Mouth/Throat, Every 12 hours, First dose on Mon05/10/19 at 1345, For 30 days
Swab mouth Q12 while intubated D/C once extubated.
[facility] Medication administered onsite Nicardipine hydrochloride 0.2 MG/ML Inje ctable Solution niCARdipine (CARDENE) 40 mg in sodium chloride 0.9 % 200 mL infusion (0.2 mg/mL) niCARdipine (CARDENE) 40 mg in sodium chloride 0.9 % 200 mL infusion (0.2 mg/mL) 05/10/2019 01:45:00 PM EST Intravenous aborted 0-15 mg/hr (0-75 mL/hr), Intravenous, at 0- 75 mL/hr, Continuous, Starting Mon05/10/19 at 1345, For 30 days
Initiate for SBP > 110. Titrate to maintain SBP 90-110
[facility] Medication administered onsite insulin regular (HumuLIN R,NovoLIN R) 10 0 units in sodium chloride 0.9 % 100 mL (1 unit/mL) infusion (premix) 350000 05/10/2019 01:45:00 PM EST Intravenous aborted 0-20 Units/hr ( 0-20 mL/hr), Intravenous, at 0-20 mL/hr, Continuous, Starting Mon05/10/19 at 1345, For 30 days
Follow cardiac surgery hyperglycemia protocol
[facility] Medication administered onsite propofol (DIPRIVAN) infusion 1,000 mg/100 mL [id number] 05/10/2019 01:45:00 PM EST Intravenous aborted 0-40 mcg/kg/min 95.9 kg (0-23.016 mL/hr, rounded to 0-23 mL/hr), Intravenous, at 0-23 mL/hr, Continuous, Starting Mon05/10/19 at 1345, For 2 days
Titrate to maintain RASS of +1 to -1 Starting dose = 10 mcg/kg/min Increase by 5-10 mcg/kg/min Max dose = 40 mcg/kg/min
[facility] Medication administered onsite Magnesium Chloride 0.27934 MEQ/ML / Pota ssium Chloride 0.92972 MEQ/ML / Sodium Acetate 0.027 MEQ/ML / Sodium Chloride 0.0899 MEQ/ML / Sodium gluconate 5.02 MG/ML Injectable Solution [Plasmalyte A] electrolyte-A (PLASMALYTE-A) infusion electrolyte-A (PLASMALYTE-A) infusion 05/10/2019 01:45:00 PM EST 10 mL/h Intravenous aborted at 10 mL/hr, Intravenous, Continuous, Starting Mon05/10/19 at 1345, For 30 days
Titrate to maintain total IV rate at 30 mL/hr
[facility] Medication administered onsite Oxycodone Hydrochloride 5 MG Oral Tablet oxyCODONE (ROXICODONE) immediate release tablet 10 mg oxyCODONE (ROXICODONE) immediate release tablet 10 mg 05/10/2019 01:36:24 PM EST 10 mg Oral aborted 10 mg, Oral, Every 4 hours PRN, Severe Pain (Pain Scale Score 7-10), Starting Mon05/10/19 at 1336, For 3 days
for use post extubation
Oxycodone immediate release is limited to 10 mg per dose. Higher doses ( only) require Pain Service consultation and approval.
[facility] Medication administered onsite ondansetron (ZOFRAN) injection 4 mg [id number] 05/10/2019 01:36:2 3 PM EST 4 mg Intravenous aborted 4 mg, In travenous, Every 8 hours PRN, Nausea, Vomiting, Starting Mon05/10/19 at 1336, For 30 days [facility] Medication administered onsite fentaNYL (SUBLIMAZE) (PF) injection 25 mcg [id number] 05/10/2019 01:36:23 PM EST 25 ug Intravenous aborted 25 m cg, Intravenous, Every 1 hour PRN, breakthrough pain, Starting Mon05/10/19 at 1336, For 12 hours
For use post extubation. MDD 150 mcg
[facility] Medication administered onsite fentaNYL (SUBLIMAZE) (PF) injection 25 mcg [id number] 05/10/2019 01:36:23 PM EST 25 ug Intravenous aborted 25 m cg, Intravenous, Every 10 min PRN, BPS >/= 6, Starting Mon05/10/19 at 1336, For 1 day
MDD 250 mcg Administer only while intubated
[facility] Medication administered onsite calcium gluconate in NaCl 0.9 % infusion 2 g/50 mL 05/10/2019 01:36:22 PM EST 2 g Intravenous aborted 2 g, Intrave nous, Every 1 hour PRN, for ionized calcium < 1.13 mmol/L (4.51 mg/dL), Starting Mon05/10/19 at 1336, For 7 days
Ionized Calcium 1 - 1.12 mmol/L (4.01 - 4.5 mg/dL): give 2 g q1h x 1 < BR>Ionized Calcium less than 1 mmol/L (less than 4.01 mg/dL): give 2 g q1h x2
[facility] Medication administered onsite chlorhexidine gluconate 20 MG/ML Medicated Pad chlorhe xidine 2 % pad 1 each chlorhexidine 2 % pad 1 each 05/10/2019 06:15:00 AM EST 1 {each} Topi kylah completed 1 each, Topical, Onc e, 05/10/19 at 0615, For 1 dose
Morning of surgery.
[facility] Medication administered onsite Albuterol 0.83 MG/ML Inhalant Solution a lbuterol (PROVENTIL) nebulizer solution 2.5 mg albuterol (PROVENTIL) nebulizer solution 2.5 mg 2019 11:30:00 AM EST 2.5 mg Nebulization completed 2 .5 mg, Nebulization, Once, Betty 05/02/19 at 1130, For 1 dose [facility] Medication administered onsite Bacitracin 0.5 UNT/MG Topical Ointment B acitracin Zinc 500 UNIT/GM External Ointment Bacitracin Zinc 500 UNIT/GM External Ointment 03/06/20 12:00:00 AM EST aborted as needed [facility] Fluticasone Propionate 50 MCG/ACT Nasal Suspension (FLONASE) [id number] 08/24/2018 12:00:00 AM EDT aborted as needed for Allergies [facility] Multiple Vitamins-Minerals (MULTIVITAMIN ADULT PO) 1 {tbl} Oral aborted Take 1 tablet by mouth every mor mirta [facility] Lactobacillus (PROBIOTIC ACIDOPHILUS PO) 2 {tbl} Oral aborted Take 2 tablets by mouth every morning [facility] FIBER SELECT GUMMIES PO 2 {tbl} Oral aborte d Take 2 tablets by mouth every morning [facility] Tab-A-Saundra/Beta Carotene Oral Tablet [id number] 1 {tbl} O ral aborted Take 1 tablet by mouth daily [facility] MAGNESIUM GLUCONATE 500 MG Oral Tablet m agnesium gluconate (MAGONATE) 500 MG tablet magnesium gluconate (MAGONATE) 500 MG tablet 500 mg Ora l aborted Take 500 mg by mouth daily [facility] Cetirizine HCl (ZYRTEC PO) 1 {tbl} Oral abo rted Take 1 tablet by mouth as needed (allergies) [facility] Euless-3 Fatty Acids (FISH OIL PO) Oral aborte d Take by [facility] Insurance Providers Payer name Policy type / Coverage type Policy ID Covered alliance party ID Covered alliance party's relationship to collins Policy Collins Plan Information [facility] [id number] WI2 [id number] Spo [id number] Self [id number] KYLE CUELLO 18 EARNESTINE CUELLO WORKMENS COMP AND NO FAULT OTHER -O/P BARBARA Platt 18 BAR[address]att [facility] HUMAN - O/P [id number] 01 [id number] [facility] HUMAN - O/P [id number] 18 [id number] [facility] [id number] U [id number] Self [id number] [facility] WPS [id number] SPO [id number] U [id number] Self [id number] [facility] WPS [id number] SPO [id number] PI PI [id number] Spo [id number] Spo [id number] ANSI-Commercial [id number] [facility] [employer] Health Maintenance Organization (O) [id number] Family Dependent [id number] [facility] Health Maintenance Organization (O) [id number] Family Dependent [id number] [facility] (2018) Health Maintenance Organization (HMO) [id number] Family Dependent [id number] [facility] [id number] [facility] (2018) Health Maintenance Organization (HMO) [id number] Family Dependent [id number] Spo [id number] Abigail [id number] [employer]/ AD O [id number] P [id number] [facility] Health [facility] Organization (HMO) Family Dependent Problems, Conditions, and Diagnoses Code Display Name Description Problem Type Effective Dates Data Source(s) N35.911 Unspecified urethral stricture, male, me atal Unspecified urethral stricture, male, meatal Diagnosis 12/16/2019 10:27:05 AM EDT [facility] Y9[address] or not applicable Unspecified place or not applicable Diagnosis 11/19/2019 02:03:00 PM EDT [facility] [id number] Other cause of strike by thr own, projected or falling object, initial encounter Other cause of strike by thrown, project ed or falling object, initial encounter Diagnosis 11/19/2019 02:03:00 PM EDT [facility] [id number] Personal history of nicotine dependence Personal history of nicotine dependence Diagnosis 11/19/2019 02:03:00 PM EDT [facility] [id number] Abrasion, left great toe, initial encoun ter Abrasion, left great toe, initial encounter Diagnosis 11/19/2019 02:03:00 PM EDT [facility] [id number] Unspecified injury of left foot, initial encounter Unspecified injury of left foot, initial encounter Diagnosis 11/19/2019 02:03:00 PM EDT [facility] I47.2 Ventricular tachycardia Ventricular tachycardia Diagno sis 10/30/2019 09:38:13 AM EDT [facility] Y990 Civilian activity done for income or pay Civilian activity done for income or pay Diagnosis 09/03/2019 04:42:00 PM EDT [facility] [id number] Striking against or struck by other obje cts, initial encounter Striking against or struck by other objects, initial encounter Diagnosis 09/03/2019 04:42:00 PM EDT [facility] Z7901 FPC (current) use of anticoagulant s FPC (current) use of anticoagulants Diagnosis 09/03/2019 04:42:00 PM EDT [facility] [id number] Contusion of left lesser toe (s) without damage to nail, initial encounter Contusion of left lesser toe(s) without damage to nail, initial encounter Diagnosis 09/03/2019 04:42:00 PM EDT [facility] [id number] Unspecified place in unspeci fied non-institutional (private) residence as the place of occurrence of the external cause Unspecified place in unspecified non-institutional (private) residence as the place of occurrence of the external cause Diagnosis 08/25/2019 03:33:00 PM EDT [facility] [id number] Overexertion from prolonged static or awkward postures, initial encounter Overexertion from prolonged static or aw kward postures, initial encounter Diagnosis 08/25/2019 03:33:00 PM EDT [facility] Z952 Presence of prosthetic heart valve Presence of p rosthetic heart valve Diagnosis 08/25/2019 03:33:00 PM EDT [facility] I2510 Atherosclerotic heart diseas e of [place] coronary artery without angina pectoris Atherosclerotic heart disease of [place] coronary artery without angina pectoris Diagnosis 08/25/2019 03:33:00 PM EDT [facility] [id number] Contusion of left upper arm, initial enc ounter Contusion of left upper arm, initial encounter Diagnosis 08/25/2019 03:33:00 PM EDT [facility] [id number] Pain in left upper arm Pain in left upper arm Diagnosi s 08/25/2019 03:33:00 PM EDT [facility] Z79.01 terminal clerk (current) use of anticoagulant s FPC (current) use of anticoagulant Diagnosis 08/21/2019 08:49:14 AM EDT [facility] R94.31 Abnormal electrocardiogram [ECG] [EKG] A bnormal electrocardiogram (ECG) (EKG) Diagnosis 08/21/2019 08:49:14 AM EDT [facility] I71.2 Thoracic aortic aneurysm, without ruptur e Thoracic aortic aneurysm, without ruptur Diagnosis 08/21/2019 08:49:14 AM EDT [facility] Q23.1 Congenital insufficiency of aortic valve Congenital insufficiency of aortic valve Diagnosis 08/21/2019 08:49:14 AM EDT [facility] I47.1 Supraventricular tachycardia Supraventricular tachycar shawn Diagnosis 08/21/2019 08:49:14 AM EDT [facility] I77.810 Thoracic aortic ectasia Thoracic aortic ectasia Diagno sis 08/06/2019 11:14:07 AM EDT [facility] [id number] Personal history of pulmonary embolism P ersonal history of pulmonary embolism Diagnosis 07/14/2019 09:24:00 AM EDT [facility] I519 Heart disease, unspecified Heart disease, unspecified Diagnosis 07/14/2019 09:24:00 AM EDT [facility] R791 Abnormal coagulation profile Abnormal coagulation prof ile Diagnosis 07/14/2019 09:24:00 AM EDT [facility] R079 Chest pain, unspecified Chest pain, unspecified Diagno sis 07/14/2019 09:24:00 AM EDT [facility] R07.2 Precordial pain Precordial pain Diagnosis 05/22/2019 10:2 1:26 AM EST [facility] 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 heart-valve replacemen Diagnosis 05/20/2019 10:07:23 AM EST [facility] I71.9 Aortic aneurysm of unspecified site, wit hout rupture Aortic aneurysm of unspecified site, without rupture Diagnosis 05/10/2019 01:13:15 PM [facility] I71.2 Thoracic aortic aneurysm, without ruptur e Thoracic aortic aneurysm, without rupture Diagnosis 05/10/2019 05:28:55 AM [facility] Ascending aortic aneurysm Ascending aortic aneurysm Di agnosis 05/10/2019 05:28:55 AM [facility] pretest pretest Diagnosis 05/02/2019 08:34:40 AM [facility] Surgeries/Procedures Procedure Description Date Indications Data Source(s) COMPLEX UROFLOMETRY COMPLEX UROFLOWMETRY Routine 12/16/2019 Stricture of urethral meatus in male, unspecified stricture type 12/16/2019 12:00:00 AM EDT Stricture of urethral meatus in male, un specified stricture type [facility] Stricture of urethral meatus in male, un specified stricture type HARLAN POST-VOIDING RESIDUAL URINE&/BLDR CAP BLADDER SCAN, POST V OID Routine 12/16/2019 Stricture of urethral meatus in male, unspecified stricture type 12/16/2019 12:00:00 AM EDT Stricture of urethral meatus in male, un specified stricture type [facility] Stricture of urethral meatus in male, un specified stricture type COMPLEX UROFLOMETRY COMPLEX UROFLOWMETRY Routine 06/19/2019 Stricture of urethral meatus in male, unspecified stricture type 06/19/2019 12:00:00 AM EST Stricture of urethral meatus in male, un specified stricture type [facility] Stricture of urethral meatus in male, un specified stricture type HARLAN POST-VOIDING RESIDUAL URINE&/BLDR CAP BLADDER SCAN, POST V OID Routine 06/19/2019 Stricture of urethral meatus in male, unspecified stricture type 06/19/2019 12:00:00 AM EST Stricture of urethral meatus in male, un specified stricture type [facility] Stricture of urethral meatus in male, un specified stricture type PARTIAL THROMBOPLASTIN TIME (PTT) PARTIAL THROMBOPLASTIN TIME ( PTT) Routine 05/18/2019 5:30 AM EST 05/18/2019 10:30:00 AM [facility] PROTHROMBIN TIME PROTIME INR Routine 05/18/2019 5:30 AM EST 05/18/2019 10:30:00 AM [facility] BLOOD COUNT COMPLETE AUTOMATED CBC Routine 05/18/2019 5:30 A M EST 05/18/2019 10:30:00 AM [facility] THROMBOPLASTIN TIME PARTIAL PLASMA/WHOLE BLOOD PARTIA L THROMBOPLASTIN TIME (PTT) Routine 05/17/2019 6:06 AM EST 05/17/2019 11:06 :00 AM [facility] PROTHROMBIN TIME PROTIME INR Routine 05/17/2019 6:06 AM EST 05/17/2019 11:06:00 AM [facility] BLOOD COUNT COMPLETE AUTOMATED CBC Routine 05/17/2019 6:06 A M EST 05/17/2019 11:06:00 AM [facility] THROMBOPLASTIN TIME PARTIAL PLASMA/WHOLE BLOOD PARTIA L THROMBOPLASTIN TIME (PTT) Timed 05/16/2019 3:28 PM EST 05/16/2019 08:28 :00 PM [facility] THROMBOPLASTIN TIME PARTIAL PLASMA/WHOLE BLOOD PARTIA L THROMBOPLASTIN TIME (PTT) Timed 05/16/2019 9:34 AM EST 05/16/2019 02:34 :00 PM [facility] EKG 12-LEAD - CMAXX REPORT EKG 12-LEAD - CMAXX REPORT 05/16/2019 3:30 AM EST 05/16/2019 08:30:17 AM [facility] EKG 12-LEAD - CMAXX REPORT EKG 12-LEAD - CMAXX REPORT 05/16/2019 3:30 AM EST 05/16/2019 08:30:17 AM [facility] EKG 12-LEAD EKG 12-LEAD Routine 05/16/2019 3:30 AM EST 05/16/2019 08:30:17 AM [facility] THROMBOPLASTIN TIME PARTIAL PLASMA/WHOLE BLOOD PARTIA L THROMBOPLASTIN TIME (PTT) Timed 05/16/2019 3:21 AM EST 05/16/2019 08:21 :00 AM [facility] PROTHROMBIN TIME PROTIME INR Routine 05/16/2019 3:21 AM EST 05/16/2019 08:21:00 AM [facility] BLOOD COUNT COMPLETE AUTOMATED CBC Routine 05/16/2019 3:21 A M EST 05/16/2019 08:21:00 AM [facility] BASIC METABOLIC PANEL CALCIUM TOTAL BASIC METABOLIC PANEL Routi ne 05/16/2019 3:21 AM EST 05/16/2019 08:21:00 AM [facility] THROMBOPLASTIN TIME PARTIAL PLASMA/WHOLE BLOOD PARTIA L THROMBOPLASTIN TIME (PTT) Timed 05/15/2019 6:49 PM EST 05/15/2019 11:49 :00 PM [facility] THROMBOPLASTIN TIME PARTIAL PLASMA/WHOLE BLOOD PARTIA L THROMBOPLASTIN TIME (PTT) Timed 05/15/2019 11:35 AM EST 05/15/2019 04:35 :00 PM [facility] THROMBOPLASTIN TIME PARTIAL PLASMA/WHOLE BLOOD PARTIA L THROMBOPLASTIN TIME (PTT) Timed 05/15/2019 4:59 AM EST 05/15/2019 09:59 :00 AM [facility] PROTHROMBIN TIME PROTIME INR Routine 05/15/2019 4:59 AM EST 05/15/2019 09:59:00 AM [facility] BLOOD COUNT COMPLETE AUTOMATED CBC Routine 05/15/2019 4:59 A M EST 05/15/2019 09:59:00 AM [facility] BASIC METABOLIC PANEL CALCIUM TOTAL BASIC METABOLIC PANEL Routi ne 05/15/2019 4:59 AM EST 05/15/2019 09:59:00 AM [facility] THROMBOPLASTIN TIME PARTIAL PLASMA/WHOLE BLOOD PARTIA L THROMBOPLASTIN TIME (PTT) Timed 05/14/2019 9:30 PM EST 05/15/2019 02:30 :00 AM [facility] THROMBOPLASTIN TIME PARTIAL PLASMA/WHOLE BLOOD PARTIA L THROMBOPLASTIN TIME (PTT) Routine 05/14/2019 3:28 PM EST 05/14/2019 08:28 :00 PM [facility] THROMBOPLASTIN TIME PARTIAL PLASMA/WHOLE BLOOD PARTIA L THROMBOPLASTIN TIME (PTT) Routine 05/14/2019 3:24 AM EST 05/14/2019 08:24 :00 AM [facility] PROTHROMBIN TIME PROTIME INR Routine 05/14/2019 3:24 AM EST 05/14/2019 08:24:00 AM [facility] BLOOD COUNT COMPLETE AUTOMATED CBC Routine 05/14/2019 3:24 A M EST 05/14/2019 08:24:00 AM [facility] MAGNESIUM MAGNESIUM LEVEL Routine 05/14/2019 3:24 AM EST 05/14/2019 08:24:00 AM [facility] BASIC METABOLIC PANEL CALCIUM TOTAL BASIC METABOLIC PANEL Routi ne 05/14/2019 3:24 AM EST 05/14/2019 08:24:00 AM [facility] PROTHROMBIN TIME PROTIME INR Routine 05/13/2019 3:51 AM EST 05/13/2019 08:51:00 AM [facility] BLOOD COUNT COMPLETE AUTOMATED CBC Routine 05/13/2019 3:51 A M EST 05/13/2019 08:51:00 AM [facility] MAGNESIUM MAGNESIUM LEVEL Routine 05/13/2019 3:51 AM EST 05/13/2019 08:51:00 AM [facility] BASIC METABOLIC PANEL CALCIUM TOTAL BASIC METABOLIC PANEL Routi ne 05/13/2019 3:51 AM EST 05/13/2019 08:51:00 AM [facility] XR CHEST FRONTAL AND LATERAL 95364 XR CHEST FRONTAL AND LATERAL 63541 Routine 05/12/2019 12:16 PM EST 05/12/2019 05:16:23 PM [facility] GLUCOSE QUANTITATIVE BLOOD XCPT REAGENT STRIP POCT GLUCOSE, DOC KED Routine 05/12/2019 6:04 AM EST 05/12/2019 11:04:00 AM [facility] PROTHROMBIN TIME PROTIME INR Routine 05/12/2019 3:25 AM EST 05/12/2019 08:25:00 AM [facility] BLOOD COUNT COMPLETE AUTOMATED CBC Routine 05/12/2019 3:25 A M EST 05/12/2019 08:25:00 AM [facility] MAGNESIUM MAGNESIUM LEVEL Routine 05/12/2019 3:25 AM EST 05/12/2019 08:25:00 AM [facility] BASIC METABOLIC PANEL CALCIUM TOTAL BASIC METABOLIC PANEL Routi ne 05/12/2019 3:25 AM EST 05/12/2019 08:25:00 AM [facility] GLUCOSE QUANTITATIVE BLOOD XCPT REAGENT STRIP POCT GLUCOSE, DOC KED Routine 05/12/2019 12:06 AM EST 05/12/2019 05:06:00 AM [facility] GLUCOSE QUANTITATIVE BLOOD XCPT REAGENT STRIP POCT GLUCOSE, YOEL GASPAR Routine 05/11/2019 5:59 PM EST 05/11/2019 10:59:00 PM [facility] GLUCOSE QUANTITATIVE BLOOD XCPT REAGENT STRIP POCT GLUCOSE, YOEL GASPAR Routine 05/11/2019 12:22 PM EST 05/11/2019 05:22:00 PM [facility] GLUCOSE QUANTITATIVE BLOOD XCPT REAGENT STRIP POCT GLUCOSE, YOEL GASPAR Routine 05/11/2019 11:12 AM EST 05/11/2019 04:12:00 PM [facility] GLUCOSE QUANTITATIVE BLOOD XCPT REAGENT STRIP POCT GLUCOSE, YOEL GASPAR Routine 05/11/2019 11:11 AM EST 05/11/2019 04:11:00 PM [facility] GLUCOSE QUANTITATIVE BLOOD XCPT REAGENT STRIP POCT GLUCOSE, YOEL GASPAR Routine 05/11/2019 11:10 AM EST 05/11/2019 04:10:00 PM [facility] GLUCOSE QUANTITATIVE BLOOD XCPT REAGENT STRIP POCT GLUCOSE, YOEL GASPAR Routine 05/11/2019 10:47 AM EST 05/11/2019 03:47:00 PM [facility] GLUCOSE QUANTITATIVE BLOOD XCPT REAGENT STRIP POCT GLUCOSE, YOEL GASPAR Routine 05/11/2019 10:19 AM EST 05/11/2019 03:19:00 PM [facility] GLUCOSE QUANTITATIVE BLOOD XCPT REAGENT STRIP POCT GLUCOSE, YOEL GASPAR Routine 05/11/2019 9:17 AM EST 05/11/2019 02:17:00 PM [facility] GLUCOSE QUANTITATIVE BLOOD XCPT REAGENT STRIP POCT GLUCOSE, YOEL GASPAR Routine 05/11/2019 8:17 AM EST 05/11/2019 01:17:00 PM [facility] GLUCOSE QUANTITATIVE BLOOD XCPT REAGENT STRIP POCT GLUCOSE, YOEL GASPAR Routine 05/11/2019 8:16 AM EST 05/11/2019 01:16:00 PM [facility] GLUCOSE QUANTITATIVE BLOOD XCPT REAGENT STRIP POCT GLUCOSE, YOEL GASPAR Routine 05/11/2019 7:02 AM EST 05/11/2019 12:02:00 PM [facility] GLUCOSE QUANTITATIVE BLOOD XCPT REAGENT STRIP POCT GLUCOSE, YOEL GASPAR Routine 05/11/2019 6:11 AM EST 05/11/2019 11:11:00 AM [facility] EKG 12-LEAD - CMAXX REPORT EKG 12-LEAD - CMAXX REPORT 05/11/2019 5:48 AM EST 05/11/2019 10:48:31 AM [facility] EKG 12-LEAD - CMAXX REPORT EKG 12-LEAD - CMAXX REPORT 05/11/2019 5:48 AM EST 05/11/2019 10:48:31 AM [facility] EKG 12-LEAD EKG 12-LEAD Routine 05/11/2019 5:48 AM EST 05/11/2019 10:48:31 AM [facility] GLUCOSE QUANTITATIVE BLOOD XCPT REAGENT STRIP POCT GLUCOSE, DOC PANCHOD Routine 05/11/2019 4:58 AM EST 05/11/2019 09:58:00 AM [facility] XR CHEST FRONTAL ONLY [id number] XR CHEST FRONTAL ONLY [id number] Routine 05/11/2019 4:20 AM EST 05/11/2019 09:20:00 AM [facility] BLOOD GASES ANY COMBINATION PH PCO2 PO2 CO2 HCO3 BLOOD GAS, ART ERIAL Routine 05/11/2019 3:56 AM EST 05/11/2019 08:56:00 AM [facility] GLUCOSE QUANTITATIVE BLOOD XCPT REAGENT STRIP POCT GLUCOSE, DOC PANCHOD Routine 05/11/2019 3:55 AM EST 05/11/2019 08:55:00 AM [facility] GLUCOSE QUANTITATIVE BLOOD XCPT REAGENT STRIP POCT GLUCOSE, DOC PANCHOD Routine 05/11/2019 2:56 AM EST 05/11/2019 07:56:00 AM [facility] BLOOD COUNT COMPLETE AUTOMATED CBC Routine 05/11/2019 2:54 A M EST 05/11/2019 07:54:00 AM [facility] MAGNESIUM MAGNESIUM LEVEL Routine 05/11/2019 2:54 AM EST 05/11/2019 07:54:00 AM [facility] CALCIUM IONIZED CALCIUM, IONIZED Routine 05/11/2019 2:54 AM EST 05/11/2019 07:54:00 AM [facility] COMPREHENSIVE METABOLIC PANEL COMPREHENSIVE METABOLIC PANEL Rou yemi 05/11/2019 2:54 AM EST 05/11/2019 07:54:00 AM [facility] GLUCOSE QUANTITATIVE BLOOD XCPT REAGENT STRIP POCT GLUCOSE, DOC PANCHOD Routine 05/11/2019 1:59 AM EST 05/11/2019 06:59:00 AM [facility] GLUCOSE QUANTITATIVE BLOOD XCPT REAGENT STRIP POCT GLUCOSE, DOC HUBERT Routine 05/10/2019 11:59 PM EST 05/11/2019 04:59:00 AM [facility] GLUCOSE QUANTITATIVE BLOOD XCPT REAGENT STRIP POCT GLUCOSE, DOC HUBERT Routine 05/10/2019 10:05 PM EST 05/11/2019 03:05:00 AM [facility] BLOOD COUNT COMPLETE AUTOMATED CBC Routine 05/10/2019 7:53 P M EST 05/11/2019 12:53:00 AM [facility] POTASSIUM SERUM PLASMA/WHOLE BLOOD POTASSIUM Routine 05/10/2019 7:53 PM EST 05/11/2019 12:53:00 AM [facility] MAGNESIUM MAGNESIUM LEVEL Routine 05/10/2019 7:53 PM EST 05/11/2019 12:53:00 AM [facility] GLUCOSE QUANTITATIVE BLOOD XCPT REAGENT STRIP POCT GLUCOSE, DOC HUBERT Routine 05/10/2019 7:52 PM EST 05/11/2019 12:52:00 AM [facility] GLUCOSE QUANTITATIVE BLOOD XCPT REAGENT STRIP POCT GLUCOSE, DOC HUBERT Routine 05/10/2019 6:26 PM EST 05/10/2019 11:26:00 PM [facility] GLUCOSE QUANTITATIVE BLOOD XCPT REAGENT STRIP POCT GLUCOSE, DOC HUBERT Routine 05/10/2019 3:33 PM EST 05/10/2019 08:33:00 PM [facility] BLOOD GASES ANY COMBINATION PH PCO2 PO2 CO2 HCO3 BLOOD GAS, ART ERIAL Routine 05/10/2019 3:28 PM EST 05/10/2019 08:28:00 PM [facility] XR CHEST FRONTAL ONLY [id number] XR CHEST FRONTAL ONLY [id number] STAT 05/10/2019 2:25 PM EST 05/10/2019 07:25:00 PM [facility] EKG 12-LEAD - CMAXX REPORT EKG 12-LEAD - CMAXX REPORT 05/10/2019 1:48 PM EST 05/10/2019 06:48:44 PM [facility] EKG 12-LEAD - CMAXX REPORT EKG 12-LEAD - CMAXX REPORT 05/10/2019 1:48 PM EST 05/10/2019 06:48:44 PM [facility] EKG 12-LEAD EKG 12-LEAD STAT 05/10/2019 1:48 PM EST 05/10/2019 06:48:44 PM [facility] GLUCOSE QUANTITATIVE BLOOD XCPT REAGENT STRIP POCT GLUCOSE, DOC KED Routine 05/10/2019 1:42 PM EST 05/10/2019 06:42:00 PM [facility] THROMBOPLASTIN TIME PARTIAL PLASMA/WHOLE BLOOD PARTIA L THROMBOPLASTIN TIME (PTT) STAT 05/10/2019 1:39 PM EST 05/10/2019 06:39 :00 PM [facility] PROTHROMBIN TIME PROTIME INR STAT 05/10/2019 1:39 PM EST 05/10/2019 06:39:00 PM [facility] BLOOD COUNT COMPLETE AUTOMATED CBC STAT 05/10/2019 1:39 P M EST 05/10/2019 06:39:00 PM [facility] MAGNESIUM MAGNESIUM LEVEL STAT 05/10/2019 1:39 PM EST 05/10/2019 06:39:00 PM [facility] BLOOD GASES ANY COMBINATION PH PCO2 PO2 CO2 HCO3 BLOOD GAS, ART ERIAL STAT 05/10/2019 1:39 PM EST 05/10/2019 06:39:00 PM [facility] CALCIUM IONIZED CALCIUM, IONIZED STAT 05/10/2019 1:39 PM EST 05/10/2019 06:39:00 PM [facility] BASIC METABOLIC PANEL CALCIUM TOTAL BASIC METABOLIC PANEL STAT 05/10/2019 1:39 PM EST 05/10/2019 06:39:00 PM [facility] COAGULATION TIME ACTIVATED TEG KAOLIN Routine 05/10/2019 12:[address] 05/10/2019 05:45:00 PM [facility] THROMBOPLASTIN TIME PARTIAL PLASMA/WHOLE BLOOD PARTIA L THROMBOPLASTIN TIME (PTT) Routine 05/10/2019 12:45 PM EST 05/10/2019 05:45 :00 PM [facility] PROTHROMBIN TIME PROTIME INR Routine 05/10/2019 12:45 PM EST 05/10/2019 05:45:00 PM [facility] BLOOD COUNT COMPLETE AUTO&AUTO DIFRNTL WBC COUNT CBC AND DIFFER ENTIAL Routine 05/10/2019 12:45 PM EST 05/10/2019 05:45:00 PM [facility] BLOOD GASES ANY COMBINATION PH PCO2 PO2 CO2 HCO3 POCT ISTAT ARTERIAL CG8 Routine 05/10/2019 12:25 PM EST 05/10/2019 05:25:00 PM [facility] COAGULATION TIME ACTIVATED POCT ISTAT ACT Routine 05/10/2019 12:24 PM EST 05/10/2019 05:24:00 PM [facility] BLOOD GASES ANY COMBINATION PH PCO2 PO2 CO2 HCO3 POCT ISTAT ARTERIAL CG8 Routine 05/10/2019 11:57 AM EST 05/10/2019 04:57:00 PM [facility] COAGULATION TIME ACTIVATED POCT ISTAT ACT Routine 05/10/2019 11:56 AM EST 05/10/2019 04:56:00 PM [facility] BLOOD GASES ANY COMBINATION PH PCO2 PO2 CO2 HCO3 POCT ISTAT ARTERIAL CG8 Routine 05/10/2019 11:30 AM EST 05/10/2019 04:30:00 PM [facility] COAGULATION TIME ACTIVATED POCT ISTAT ACT Routine 05/10/2019 11:29 AM EST 05/10/2019 04:29:00 PM [facility] COAGULATION TIME ACTIVATED POCT ISTAT ACT Routine 05/10/2019 11:00 AM EST 05/10/2019 04:00:00 PM [facility] BLOOD GASES ANY COMBINATION PH PCO2 PO2 CO2 HCO3 POCT ISTAT ARTERIAL CG8 Routine 05/10/2019 11:00 AM EST 05/10/2019 04:00:00 PM [facility] BLOOD GASES ANY COMBINATION PH PCO2 PO2 CO2 HCO3 POCT ISTAT ARTERIAL CG8 Routine 05/10/2019 10:31 AM EST 05/10/2019 03:31:00 PM [facility] COAGULATION TIME ACTIVATED POCT ISTAT ACT Routine 05/10/2019 10:30 AM EST 05/10/2019 03:30:00 PM [facility] BLOOD GASES ANY COMBINATION PH PCO2 PO2 CO2 HCO3 POCT ISTAT ARTERIAL CG8 Routine 05/10/2019 10:12 AM EST 05/10/2019 03:12:00 PM [facility] COAGULATION TIME ACTIVATED POCT ISTAT ACT Routine 05/10/2019 10:06 AM EST 05/10/2019 03:06:00 PM [facility] BLOOD GASES ANY COMBINATION PH PCO2 PO2 CO2 HCO3 POCT ISTAT DANIELLA OUS CG8 Routine 05/10/2019 10:06 AM EST 05/10/2019 03:06:00 PM [facility] COAGULATION TIME ACTIVATED POCT ISTAT ACT Routine 05/10/2019 9:48 AM EST 05/10/2019 02:48:00 PM [facility] BLOOD GASES ANY COMBINATION PH PCO2 PO2 CO2 HCO3 POCT ISTAT DANIELLA OUS CG8 Routine 05/10/2019 9:48 AM EST 05/10/2019 02:48:00 PM [facility] COAGULATION TIME ACTIVATED TEG KAOLIN STAT 05/10/2019 9:[address] 05/10/2019 02:05:00 PM [facility] BLOOD GASES ANY COMBINATION PH PCO2 PO2 CO2 HCO3 POCT ISTAT ARTERIAL CG8 Routine 05/10/2019 9:03 AM EST 05/10/2019 02:03:00 PM [facility] BLOOD GASES ANY COMBINATION PH PCO2 PO2 CO2 HCO3 POCT ISTAT DANIELLA OUS CG8 Routine 05/10/2019 8:45 AM EST 05/10/2019 01:45:00 PM [facility] COAGULATION TIME ACTIVATED POCT ISTAT ACT Routine 05/10/2019 8:44 AM EST 05/10/2019 01:44:00 PM [facility] DOPPLER COLOR FLOW MAPPING DOPPLER COLOR FLOW MAPPING 05/10/2019 7:43 AM EST Ascending aortic aneurysm 05/10/2019 12:43:00 PM EST - 05/10/2019 06:53:00 PM EST Ascending aortic aneurysm [facility] Ascending aortic aneurysm ECHOCARDIOGRAPHY, TRANSESOPHAGEAL, 2D W/ PROBE, IMAGE ACQUISITION, INTERPRETATION AND REPORT ECHOCARDIOGRAPHY, TRANSESOPHAGEAL, 2D W/ PROBE, IMAGE ACQUISITION, INTERPRETATION AND REPORT 05/10/2019 7:43 AM EST Ascending aortic aneurysm 05/10/2019 12:43:00 PM EST - 05/10/2019 06:53:00 PM EST Ascending aortic aneurysm [facility] Ascending aortic aneurysm ASCENDING AORTA GRAFT, W/CARDIOPLUMONARY BYPASS, W/WO VALVE SUSPENSION ASCENDING AORTA GRAFT, W/CARDIOPLUMONARY BYPASS, W/WO VALVE SUSPENSION 05/10/2019 7:43 AM EST Ascending aortic aneurysm 05/10/2019 12:43:00 PM EST - 05/10/2019 06:53:00 PM EST Ascending aortic aneurysm [facility] Ascending aortic aneurysm CONFIRMATORY TYPE CONFIRMATORY TYPE Routine 05/10/2019 7:00 AM EST 05/10/2019 12:00:00 PM [facility] CROSSMATCH, PAT CROSSMATCH, PAT Routine 05/10/2019 7:00 AM EST 05/10/2019 12:00:00 PM [facility] LEVEL I SURG PATHOLOGY GROSS EXAMINATION ONLY SURGICA L PATHOLOGY EXAM ( ONLY) Routine 05/10/2019 12:00 AM EST 05/10/2019 05:00 :00 AM EST [facility] VASC LAB US DOPPLER CAROTID BILATERAL COMP [id number] VASC LAB US DOPPLER CAROTID BILATERAL COMP [id number] Routine 05/02/2019 1:01 PM EST Thoracic aortic aneurysm without rupture 05/02/2019 06:01:42 PM EST Thoracic aortic aneurysm without rupture [facility] Thoracic aortic aneurysm without rupture BLOOD GASES ANY COMBINATION PH PCO2 PO2 CO2 HCO3 BLOOD GAS, ART ERIAL Routine 05/02/2019 11:55 AM EST Thoracic aortic aneurysm without rupture 05/02/2019 04:55:00 PM EST Thoracic aortic aneurysm without rupture [facility] Thoracic aortic aneurysm without rupture COMPLETE PFT'S, PRE & POST BRONCHODILATOR (SPIROMETRY, LUNG VOLUMES, D <td><content ID="[email or web address]">COMPLETE PFT'S, PRE & POST BRONCHODILATOR (SPIROMETRY, LUNG VOLUMES, D</content></td><td>Routine</td><td>05/02/2019 11:05 AM EST</td><td><paragraph>Thoracic aortic aneurysm without rupture</paragraph></td><td><paragraph styleCode="header">Results for this procedure are in the <content styleCode="[id number]">results section</content>.</paragraph></td> 05/02/2019 04:05:09 PM EST Thoracic aortic aneurysm without rupture [facility] Thoracic aortic aneurysm without rupture PARTIAL THROMBOPLASTIN TIME (PTT) PARTIAL THROMBOPLASTIN TIME ( PTT) Routine 05/02/2019 9:26 AM EST Thoracic aortic aneurysm without rupture 05/02/2019 02:26:00 PM EST Thoracic aortic aneurysm without rupture [facility] Thoracic aortic aneurysm without rupture PROBNP PROBNP Routine 05/02/2019 9:26 AM EST Thoracic aortic aneurysm without rupture 05/02/2019 02:26:00 PM EST Thoracic aortic aneurysm without rupture [facility] Thoracic aortic aneurysm without rupture HEPATITIS C ANTIBODY HEPATITIS C ANTIBODY STAT 05/02/2019 9:26 AM EST Thoracic aortic aneurysm without rupture 05/02/2019 02:26:00 PM EST Thoracic aortic aneurysm without rupture [facility] Thoracic aortic aneurysm without rupture PROTHROMBIN TIME PROTIME INR Routine 05/02/2019 9:26 AM EST Thoracic aortic aneurysm without rupture 05/02/2019 02:26:00 PM EST Thoracic aortic aneurysm without rupture [facility] Thoracic aortic aneurysm without rupture BLOOD COUNT COMPLETE AUTO&AUTO DIFRNTL WBC COUNT CBC AND DIFFER ENTIAL Routine 05/02/2019 9:26 AM EST Thoracic aortic aneurysm without rupture 05/02/2019 02:26:00 PM EST Thoracic aortic aneurysm without rupture [facility] Thoracic aortic aneurysm without rupture BLOOD TYPING ABO TYPE AND CROSSMATCH Routine 05/02/2019 9:26 AM EST Thoracic aortic aneurysm without rupture 05/02/2019 02:26:00 PM EST Thoracic aortic aneurysm without rupture [facility] Thoracic aortic aneurysm without rupture HEMOGLOBIN GLYCOSYLATED A1C HEMOGLOBIN A1C Routine 05/02/2019 9:26 AM EST Thoracic aortic aneurysm without rupture 05/02/2019 02:26:00 PM EST Thoracic aortic aneurysm without rupture [facility] Thoracic aortic aneurysm without rupture COMPREHENSIVE METABOLIC PANEL COMPREHENSIVE METABOLIC PANEL Rou yemi 05/02/2019 9:26 AM EST Thoracic aortic aneurysm without rupture 05/02/2019 02:26:00 PM EST Thoracic aortic aneurysm without rupture [facility] Thoracic aortic aneurysm without rupture URNLS DIP STICK/TABLET REAGENT AUTO MICROSCOPY URINALYSIS W ITH MICROSCOPIC Routine 05/02/2019 9:01 AM EST Thoracic aortic aneurysm without rupture 05/02/2019 02:01:00 PM EST Thoracic aortic aneurysm without rupture [facility] Thoracic aortic aneurysm without rupture Results ID Date Data Source [id number] 05/08/2020 08:27:00 AM EST [facility] Name Value Range Interpretation Code Description Data Varsha rce(s) Supporting Document(s) SARS coronavirus 2 RNA Not Detected [facility] This lab was ordered by [facility] Laboratory and reported by [facility]. ID Date Data Source [id number] 04/05/2020 12:00:00 AM EST [facility] Name Value Range Interpretation Code Description Data Varsha rce(s) Supporting Document(s) SARS-CoV2 Rapid Antigen [facility] This lab was ordered by [facility] and reported by [facility]. ID Date Data Source [id number] 03/14/2020 12:00:00 AM EST [facility] Name Value Range Interpretation Code Description Data Varsha rce(s) Supporting Document(s) SARS-CoV2 Rapid Antigen [facility] This lab was ordered by [facility] and reported by [facility]. ID Date Data Source [id number] 12/16/2019 01:12:13 PM [facility] Name Value Range Interpretation Code Description Data Varsha rce(s) Supporting Document(s) Progress Note [facility] [id number] [file] Cg== ID Date Data Source [id number] 11/19/2019 02:03:00 PM EDT [facility] 1 OrderSheet [facility] Emergency Department [address] [place] [address] Phone #: ext- [phone] 11/19/2019 13:58 Patient: KYLE LOCKE Sex: M : 1975 Age: 44yWEIGHT:90.7 kg (S) HEIGHT:81 inches (S) BMI:21.4ALLERGIES: NoneCHIEF COMPLAINT: Lt, great toeDIAGNOSIS: AbrasionLAB ORDERSOrder Description Priority Entered Acknowledged InitialedPT/INR STAT 15:00 11/19/2019 Cancelled: Other 15:00 Ezequiel Anderson-Jazz P.ATam;PT/PTT STAT 15:00 11/19/2019 15:21 Ezequiel Olivarez R.N., P.A.-C;DIAGNOSTIC STUDY ORDERSOrder Description Priority Entered Acknowledged InitialedMEDICATION/IV/DRIP/FLUID ORDERSOrder Description Priority Entered Acknowledged InitialedBacitracin Zinc 15:11/19/2019 15:21 Sher,Topical 1 Ezequiel Meier P.A.-C;GENERAL ORDERSOrder Description Priority Entered Acknowledged InitialedDress Wounds 15:11/19/2019 15:21 Ezequiel Olivarez R.N., P.A.-C;[Electronically signed by Rodrigo Olivarez R.N. (15:53 11/19/2019)][Electronically signed by Ezequiel Jovel P.A.-C (23:01 11/19/2019)][Electronically locked by Rodrigo Olivarez R.N. (15:53 11/19/2019)] Name Value Range Interpretation Code Description Data Varsha rce(s) Supporting Document(s) ID Date Data Source [id number] 11/19/2019 02:03:00 PM EDT [facility] 1 Medication Reconciliation Report [facility] Emergency Department [address] [place] [address] Phone #: ext- [phone] 11/19/2019 13:58 Patient: KYLE LOCKE Sex: M : 1975 Age: 44yWeight: 90.7 kgHeight/Length: 81 in.BMI: 21.4ALLERGIES: NoneThe patient's Home Medications are listed below:CONTINUE TAKING THE FOLLOWING MEDICATIONS: Coumadin Oral (5 mg), daily Lopressor Oral (50 mg) 25 mg, daily Zoloft Oral 25 mg, dailyThe source(s) of the original Home Med ication information:patientThe following Medications were given to the patient in the Emergency Department:Bacitracin Zinc [Topical] Topical 1 application, administered: 11/19/2019 3:21:00 PMThe following Medications were prescribed to the patient:None. Name Value Range Interpretation Code Description Data Varsha rce(s) Supporting Document(s) ID Date Data Source [id number] 11/19/2019 02:03:00 PM EDT [facility] 1 Medication Administration Record [facility] Emergency Department [address] [place] [address] Phone #: ext- [phone] 11/19/2019 13:58 Patient: KYLE LOCKE Sex: M : 1975 Age: 44yWeight: 90.7 kgHeight/Length: 81 inBMI: 21.4ALLERGIES: None Date/Time Medication Administered Medication OrderedGiven BACITRACIN ZINC [TOPICAL] Bacitracin Zinc Topical 115:21 11/19/2019 Dose: 1 application Topical Solution Rodrigo Rob R.N. Topical Name Value Range Interpretation Code Description Data Varsha rce(s) Supporting Document(s) ID Date Data Source [id number] 11/19/2019 02:03:00 PM EDT [facility] 1 General Instructions [facility] Emergency Department [address] [place] [address] Phone #: ext- [phone] 11/19/2019 13:58 Patient: KYLE LOCKE Sex: M : 1975 Age: 44ySingle superficial abrasion to the left great toe.INSTRUCTIONSProtect wound and keep wound area clean.No dietary restrictions.(Recommend to utilize OTC Motrin and Tylenol to control inflammation and pain management.Recommend to follow the instructions on the bottle and not to exceed.Recommend to utilize OTC antibiotic ointment to help control possible skin infection and help promotewound healing and care.).Warnings: INFECTION: Watch for signs of infection (increasing heat and redness, pus-like drainage,swelling, or increased pain). Return or see your doctor if these signs occur.Your Current Medications: Your current home medications have been reviewed.CONTINUE TAKING THE FOLLOWING MEDICATIONS:Coumadin Oral : Tablet 5 mg, daily.Lopressor Oral : Tablet 50 mg, 25 mg daily.Zoloft Oral : 25 mg daily.Follow-up:Return to the emergency department as needed. Follow up with your healthcare provider in about twodays if not better.Understanding of the discharge instructions verbalized by patient. ADDITIONAL INFORMATIONAbrasionsAbrasions are skin scrapes. Their treatment depends on how large and deep the abrasion is.Home careYou may be prescribed an antibiotic cream or ointment to apply to the wound. This helps preventinfection. Follow instructions when using this medicine. 2 General Instructions [facility] Emergency Department [address] [place] [address] Phone #: nxp- [phone] 11/19/2019 13:58 Patient: KYLE LOCKE Sex: M : 1975 Age: 44yGeneral care To care for the abrasion, do the following each day for as long as directed by your healthcare provider. o If you were given a bandage, change it once a day. If your bandage sticks to the wound, soak it in warm water until it loosens. o Wash the area with soap and warm water. You may do this in a sink or under a tub faucet or shower. Rinse off the soap. Then pat the area dry with a clean towel. o If antibiotic ointment or cream was prescribed, reapply it to the wound as directed. Cover the wound with a fresh nonstick bandage. If the bandage becomes wet or dirty, change it as soon as possible. o Some antibiotic ointments or cream can cause an allergic reaction or dermatitis. This may cause redness, itching and or hives. If this occurs, stop using the ointment immediately and wash off any remaining ointment. You may need to take some allergy medicine to relieve symptoms. You may use acetaminophen or ibuprofen to control pain unless another pain medicine was prescribed. Talk with your healthcare provider before using these medicines if you have chronic liver or kidney disease or ever had a stomach ulcer or GI bleeding. Don't use ibuprofen in children younger than six months old. Most skin wounds heal within 10 days. But an infection may occur even with treatment. So it's important to watch the wound for signs of infection as listed below.Follow-up careFollow up with your healthcare provider, or as advised.When to seek medical adviceCall your healthcare provider right away if any of these occur: Fever of 100.4F (38C) or higher, or as directed by your healthcare provider Increasing pain, redness, swelling, or drainage from the wound Bleeding from the wound that does not stop after a few minutes of steady, firm pressure Decreased ability to move any body part near the wound [id number] [employer]. [address] [place] [address]. All rights reserved. This information is not intended as asubstitute for professional medical care. Always follow your healthcare professional's instructions. 3 General Instructions [facility] Emergency Department [address] [place] [address] Phone #: ext- [phone] 11/19/2019 13:58 Patient: KYLE LOCKE Sex: M : 1975 Age: 44yYou have been given the following additional information:Abrasions(Electronically signed by Ezequiel Jovel P.A.-C 11/19/2019 23:01) Name Value Range Interpretation Code Description Data Varsha rce(s) Supporting Document(s) ID Date Data Source [id number] 11/19/2019 02:03:00 PM EDT [facility] 1 Clinical Report - Nurses [facility] Emergency Department [address] [place] [address] Phone #: ext- [phone] 11/19/2019 13:58 Patient: KYLE LOCKE Sex: M : 1975 Age: 44yTRIAGEArrived by private vehicle. Historian: patient. Unaccompanied.Triage time: 12:04 11/19/2019. Acuity: LEVEL 4.Chief Complaint: (Left foot injury).Alert. No acute distress.Location of injuries: left foot. Occurred late entry - 13:15 11/19/2019. ( Pt states he is on Coumadin,dropped a wooden pallet on his foot and he is concerned because there is broken skin and he is onCoumadin, although no obvious hemorrhage noted.).Treatment FINANCIAL ANALYST:None.SEPSIS SCREEN: SIRS Screen negative. (14:08 11/19/2019). --14:08 11/19/19 Mattie Ray R.N.14:04 11/19/19. Pain level now: 05/03. --14:08 11/19/19 Mattie Ray R.N.14:13 11/19/19. BP: 125/83. MAP: 97. HR: 80. RR: 16. O2 saturation: 96% on room air. Temp: 97.3 F(oral). --14:14 11/19/19 Mattie Ray R.N.Weight: 90.7 kg stated. Height/Length: 81 inches Per Patient. BMI: 21.4. --13:57 11/19/19 Mattie Ray R.N.MedicationsZoloft Oral 25 mg, daily. --14:06 11/19/19 Mattie Ray R.N. Coumadin Oral (Tablet 5 mg), daily. Lopressor Oral (Tablet 50 mg) 25 mg, daily. --14:11/19/19 Mattie Ray R.N.AllergiesNone. --14:11/19/19 Mattie Ray R.N.PROBLEMS:Aortic Dissection.Oral Anticoagulation Therapy.Pulmonary Embolism.Heart valve mechanical. --14:11/19/19 Mattie Ray R.N.Medication/allergy information source: the patient. --14:11/19/19 Mattie Ray R.N.ADDITIONAL SURGERIES: 2 Clinical Report - Nurses [facility] Emergency Department [address] [place] [address] Phone #: ext- [phone] 11/19/2019 13:58 [id number] : 1975 Age: 44y Aortic valve mechanical. Bilateral wrist surgery. Cardiac Procedures. Facial plastic surgery. Urethral dilitation. Valve Replacement. --14:11/19/19 Mattie Ray R.N. History PAST MEDICAL HX: Tetanus immunization status is uncertain. Immunizations: up-to-date. Tetanus immunization status is not up-to-date. SOCIAL HX: Former smoker. No alcohol use or drug use. The patient was offered HIV testing but declined. Patient education was provided. The patient was offered hepatitis C testing but declined. Patient education was provided. The patient has not traveled outside the [place] Infectious disease exposure: No infectious disease exposure. Patient is not a known carrier of tuberculosis, hepatitis, HIV, MRSA or VRE. Patient is not a known carrier of CRE. SELF HARM ASSESSMENT: Self harm assessment was performed. The patient answered "no" to the question(s) "Do you have thoughts of harming or killing yourself?" and "Do you have a plan for harming or killing yourself?". ABUSE ASSESSMENT: Abuse assessment. The patient had positive responses to the question(s) "Do you feel safe in your home?". Abuse denied. No suspicion of abuse. No report of abuse. NUTRITIONAL RISK ASSESSMENT: The nutritional risk assessment revealed no deficiencies. FUNCTIONAL ASSESSMENT: Functional assessment: no impairments noted. LEARNING NEEDS ASSESSMENT: The learning needs assessment revealed no barriers. FALL RISK ASSESSMENT: Fall risk assessment completed. No risk factors identified. SKIN INTEGRITY ASSESSMENT: Skin integrity risk assessment completed. No skin integrity risk identified. --14:08 11/19/19 Mattie Ray R.N. Interventions Identification band on patient. --14:08 11/19/19 Mattie Ray R.N. To treatment room. --14:13 11/19/19 Mattie Ray R.N.PHYSICAL ASSESSMENTGENERAL / NEURO / PSYCH: Alert. Oriented X 4. Appears in no acute distress.RESPIRATORY: Respirations not labored.EXTREMITIES: Neuro-vascular status intact to the extremity. Left big toe: small and superficial abrasion.No swelling or deformity. 3 Clinical Report - Nurses [facility] Emergency Department [address] [place] [address] Phone #: ext- [phone] 11/19/2019 13:58 [id number] Sex: [facility] : 1975 Age: 44y SKIN: Skin is warm and dry. --14:16 11/19/19 Mattie Ray R.N.NURSING PROGRESS NOTESReassurance given. Three patient identifiers checked. Call light placed in reach. Side rails up x 2. Bedplaced in lowest position. Brakes of bed on. Patient ready for evaluation- PA notified. --14:15 11/19/19Mattie Ray R.N. 15:21 11/19/2019 Bacitracin Zinc Topical Topical Solution 1 application --15:21 11/19/19 Rodrigo Olivarez R.N.DISPOSITION / DISCHARGE 15:52 11/19/19. BP: 110/60. MAP: 76. HR: 66. RR: 18. O2 saturation: 99%. Temp: deferred. Pain level now: 0/10. --15:53 11/19/19 Rodrigo Olivarez R.N. No learning barriers present. The patient was discharged by the physician cardiology physician assistant. He was discharged home. He left ambulatory and via private vehicle. Patient driving. --15:53 11/19/19 Rodrigo Olivarez R.N. Departure time: 15:53 11/19/2019. --15:53 11/19/19 Rodrigo Olivarez R.N.Locked/Released at 11/19/2019 15:53 by Rodrigo Olivarez R.N. Name Value Range Interpretation Code Description Data Varsha rce(s) Supporting Document(s) ID Date Data Source [id number] 11/19/2019 02:03:00 PM EDT [facility] 1 Clinical Report - Physicians/Mid Levels [facility] Emergency Department [address] [place] [address] Phone #: ext- [phone] 11/19/2019 13:58 Patient: KYLE LCOKE Sex: M : 1975 Age: 44y Time Seen: 14:22 11/19/2019; initial patient contact, initial documentation. Arrived- By private vehicle. Historian- patient.HISTORY OF PRESENT ILLNESS Chief Complaint: Injury to the left great toe. The injury happened today 115 PM. Occurred at work. The patient sustained a direct blow (wooden pallet). Patient is experiencing mild pain. No injury to the head or neck. (44 year old male here today after dropping a wood pallet on L big toe this afternoon. He is on W arfarin and wants to get checked to make sure there is no uncontrolled bleeding. He checks his own INR weekly and adjusts accordingly. He states it is not currently bleeding.).REVIEW OF SYSTEMSNo swelling, tingling, weakness, numbness or suspected foreign body. No skin laceration. He has nopain on weight bearing. All other systems reviewed and are negative.PAST HISTORYSee nurses notes. Problems: Chest Pain. Contusion. Coronary Artery Disease. Aortic Disease. Atypical Chest Pain. Other Disease. Gerd. Heart Disease. Aortic Dissection. Oral Anticoagulation Therapy. Pulmonary Embolism. Heart valve mechanical. Additional Surgeries: Aortic valve mechanical. Bilateral wrist surgery. Cardiac Procedures. Facial plastic surgery. Urethral dilitation. 2 Clinical Report - Physicians/Mid Levels [facility] Emergency Department [address] [place] [address] Phone #: ext- [phone] 11/19/2019 13:58 Patient: KYLE LOCKE Sex: M : 1975 Age: 44y Valve Replacement. Medications: Coumadin Oral (Tablet 5 mg), daily. Lopressor Oral (Tablet 50 mg) 25 mg, daily. Zoloft Oral 25 mg, daily. Allergies: None.SOCIAL HISTORYFormer smoker. No alcohol use or drug use.ADDITIONAL NOTESThe nursing notes have been reviewed.PHYSICAL EXAMVital Signs: 11/19/2019 14:13 BP: 125/83. MAP: 97. HR: 80. RR: 16. O2 saturation: 96% on room air.Temp: 97.3 F. Have been reviewed. Oxygen saturation normal.Appearance: Alert. Oriented X3. No acute distress.Head: Head atraum atic.Eyes: Eyes normal inspection.ENT: Normal ENT inspection. Ears normal. Nose normal. Voice normal.CVS: Normal heart rate and rhythm. No JVD present. Pulses normal. Capillary refill normal. Strongperipheral pulses. (mechanical heart valve). Pulses: right radial 2+; left radial 2+; right dorsalis pedis 2+;left dorsalis pedis 2+; right posterior tibial 2+; left posterior tibial 2+.Respiratory: Chest normal on inspection. No respiratory distress. Unlabored respirations. Lungs clear.Good chest movement. Breath sounds normal and equal. Chest nontender.Abdomen: Normal inspection. Soft and nontender. Bowel sounds normal. No distention.Skin: Skin warm and dry.Extremities: Left great toe: mild erythema and tenderness and small abrasion with controlled bleeding.Neurovascular intact distally. No swelling, laceration, ecchymosis, puncture wound or foreign body. Nodeformity. No left leg complaint, left medial ankle complaints, left ankle complaints, left anterior anklecomplaints or left foot complaints. No left posterior ankle complaints or left lateral ankle complaints. Nocomplaints involving the base of the left 5th metatarsal, plantar aspect of the left foot, left dorsal foot, leftfoot web space or left fifth toe. No complaints involving the left fourth toe, left third toe or left second toe.No ankle injury.Neuro, Vascular and Tendons: Vascular status intact. Sensation intact. Motor intact. Tendon functionintact.Gait: Normal gait.Neuro: No motor deficit. Moves all extremities equally. No sensory deficit.Psych: Cognition normal. Thought process and content normal. Insight and judgement normal.LABS, X-RAYS, AND EKGLaboratory Tests: 3 Clinical Report - Physicians/Mid Levels [facility] Emergency Department [address] [place] [address] Phone #: ext- [phone] 11/19/2019 13:58 [id number] Sex: [facility] : 1975 Age: 44y PT/INR: (BRIAN: 11/19/2019 15:00) ( MsgRcvd 11/19/2019 15:01) Canceled PT/PTT: (BRIAN: 11/19/2019 15:10) ( MsgRcvd 11/19/2019 15:31) Final results Test Result Flag Units (Reference) PROTIME 29.7 H SECONDS (11.0 - 15.5) INR 2.77 H (0.93 - 1.23) PTT 39.8 H SECONDS (24.8 - 36.7) \\BLDo\\INR INTERPRETATION\\BLDx\\ Therapeutic range for Coumadin and related oral anticoagulants. - International Normalized Ratio (INR): 2.0 - 3.0 for Venous Thrombosis, Pulmonary Embolus, Tissue heart valves, Acute NH Atrial Fibrillation, Valvular heart disease and recurrent Systemic Embolism. -International Normalized Ratio (INR): 2.5 - 3.5 for Mechanical Prosthetic valve..PROGRESS AND PROCEDURESCourse of Care: VSS, NAD, AOx3, interacting well and appropriately, no use of accessory muscle, able tospeak full sentences, stable, non-toxic looking. Enter room and pt lying peacefully in bed in NAD. Patient stable. Denies any new issues, concerns, or complaints. Pt sts that he takes his coumadin as rx'ed. Checks INR at home every Monday w/no issues. Sts dropped pallet at work and unsure thus came to ER. PE [place] itnact b/l UE and LE. NO TTP of the toe, foot, or ankel. Noted small abrasion with controlled bleeding. No echymosis or uncontrolled bleeding. Discussed with attneing adn will obtin INR today and dress abrasion. Pending resutls. REviewed results. Sts that INR is typcially b/w 2.5 and 3.5. Normal. Enter room and patient lying peacefully in bed in NAD. Patient stable. Denies any new issues, concerns, or complaints. Discussed results with pt. Discussed tx plan with pt. Discussed and counseled on stable condition. Discussed importance of a f/u with PCP. Discussed return to ER criteria. Answered their questions. Indicates and verbalizes that they understand, agree, and will comply with above. Denies any new questions or concerns. Patient has capacity to understand. Discharge decision based on the following: patient's condition is stable; patient's exam is stable; social support is adequate; transportation is available; follow-up is available. Discussed of OTC Motrin and Tylenol to control inflammation and pain management. Informed to follow directions on hortencia le that are appropriate for age and/or weight. 4 Clinical Report - Physicians/Mid Levels [facility] Emergency Department [address] [place] [address] Phone #: ext- [phone] 11/19/2019 13:58 [id number] Sex[facility] M : 1975 Age: 44y Disposition: Discharged in good and improved condition. Condition: good and stable.CLINICAL IMPRESSION Single superficial abrasion to the left great toe.INSTRUCTIONS Protect wound and keep wound area clean. No dietary restrictions. (Recommend to utilize OTC Motrin and Tylenol to control inflammation and pain management. Recommend to follow the instructions on the bottle and not to exceed. Recommend to utilize OTC antibiotic ointment to help control possible skin infection and help promote wound healing and care.). Warnings: INFECTION: Watch for signs of infection (increasing heat and redness, pus-like drainage, swelling, or increased pain). Return or see your doctor if these signs occur. Your Current Medications: Your current home medications have been reviewed. CONTINUE TAKING THE FOLLOWING MEDICATIONS: Coumadin Oral : Tablet 5 mg, daily. Lopressor Oral : Tablet 50 mg, 25 mg daily. Zoloft Oral : 25 mg daily. Follow-up: Return to the emergency department as needed. Follow up with your healthcare provider in about two days if not better. Understanding of the discharge instructions verbalized by patient.(Electronically signed by Ezequiel Jovel P.A.-C 11/19/2019 23:01) Name Value Range Interpretation Code Description Data [facility](s) Supporting Document(s) ID Date Data Source [id number] 11/19/2019 03:28:00 PM EDT [facility] Name Value Range Interpretation Code Description Data [facility](s) Supporting Document(s) Prothrombin time (PT) 29.7 SECONDS 11.0 - 15.5 H [facility] INR in Platelet poor plasma by Coagulation assay 2.77 0.93 - 1. 23 H [facility] aPTT in Blood by Coagulation assay 39.8 SECONDS 24.8 - 36.7 H [facility] \\BLDo\\INR INTERPRETATION\\BLDx\\ Therapeutic range for Coumadin and related oral anticoagulants. - International Normalized Ratio (INR): 2.0 - 3.0 for Venous Thrombosis, Pulmonary Embolus, Tissue heart valves, Acute NH Atrial Fibrillation, Valvular heart disease and recurrent Systemic Embolism. - International Normalized Ratio (INR): 2.5 - 3.5 for Mechanical Prosthetic valve. ID Date Data Source [id number] 09/03/2019 04:42:00 PM EDT [facility] 1 Medication Reconciliation Report [facility] Emergency Department [address] [place] [address] Phone #: ext- [phone] 09/03/2019 16:32 Patient: KYLE LOCKE Sex: M : 1975 Age: 44yWeight: 97.5 kgHeight/Length: 69 in.BMI: 31.8ALLERGIES: NoneThe patient's Home Medications are listed below:CONTINUE TAKING THE FOLLOWING MEDICATIONS: Coumadin Oral (5 mg), daily Lopressor Oral (50 mg) 25 mg, dailyThe source(s) of the original Home Medication information:Not obtained.The following Medications were given to the patient in the Emergency Department:None.The following Medications were prescribed to the patient:None. Name Value Range Interpretation Code Description Data Varsha rce(s) Supporting Document(s) ID Date Data Source [id number] 09/03/2019 04:42:00 PM EDT [facility] 1 Medication Administration Record [facility] Emergency Department [address] [place] [address] Phone #: ext- [phone] 09/03/2019 16:32 Patient: KYLE LOCKE Sex: M : 1975 Age: 44yWeight: 97.5 kgHeight/Length: 69 inBMI: 31.8ALLERGIES: NoneDate/Time Medication Administered Medication Ordered Name Value Range Interpretation Code Description Data Varsha rce(s) Supporting Document(s) ID Date Data Source [id number] 09/03/2019 04:42:00 PM EDT [facility] 1 General Instructions [facility] Emergency Department [address] [place] [address] Phone #: ext- [phone] 09/03/2019 16:32 Patient: KYLE LOCKE Sex: M : 1975 Age: 44ySingle contusion to the left 3rd toe.No left toenail injury.INSTRUCTIONSYour Current Medications: Your current home medications have been reviewed.CONTINUE TAKING THE FOLLOWING MEDICATIONS:Coumadin Oral : Tablet 5 mg, daily.Lopressor Oral : Tablet 50 mg, 25 mg daily.Follow-up:Follow up with your doctor as needed. Reason for referral: evaluation and treatment. Summary of careprovided to patient.Understanding of the discharge instructions verbalized by patient. ADDITIONAL INFORMATIONFoot ContusionYou have a contusion. This is also called a bruise. There is swelling and some bleeding under theskin, but no broken bones. This injury generally takes a few days to a few weeks to heal. During thattime, the bruise will typically change in color from reddish, to purple-blue, to greenish-yellow, then toyellow-brown.Home care Elevate the foot to reduce pain and swelling. As much as possible, sit or lie down with the foot raised about the level of your heart. This is especially important during the first 48 hours. Ice the foot to help reduce pain and swelling. Wrap a cold source (ice pack or ice cubes in a plastic bag) in a thin towel. Apply to the bruised area for 20 minutes every 1 to 2 hours the first day. Continue this 3 to 4 times a day until the pain and swelling goes away. Unless another medicine was prescribed, you can take acetaminophen, ibuprofen, or naproxen to control pain. (If you have chronic liver or kidney disease or ever had a stomach ulcer or gastrointestinal bleeding, talk with your healthcare provider before using these medicines.) 2 General Instructions [facility] Emergency Department [address] [place] [address] Phone #: ext- [phone] 09/03/2019 16:32 Patient: KYLE LOCKE Sex: M : 1975 Age: 44yFollow upFollow up with your healthcare provider or our staff as advised. Call if you are not improving within 1to 2 weeks.When to seek medical adviceCall your healthcare provider right away if you have any of the following: Increased pain or swelling Foot or leg becomes cold, blue, numb or tingly Signs of infection: Warmth, drainage, or increased redness or pain around the bruise Inability to move the injured foot Frequent bruising for unknown reasons [id number] [employer]. [address] [place] [address]. All rights reserved. This information is not intended as asubstitute for professional medical care. Always follow your healthcare professional's instructions. You have been given the following additional information: Foot Contusion(Electronically signed by MCKENNA Avitia 09/03/2019 21:37) Name Value Range Interpretation Code Description Data Varsha rce(s) Supporting Document(s) ID Date Data Source [id number] 09/03/2019 04:42:00 PM EDT [facility] 1 Clinical Report - Nurses [facility] Emergency Department [address] [place] [address] Phone #: [phone] 09/03/2019 16:32 Patient: KYLE LOCKE Sex: M : 1975 Age: 44yTRIAGEArrived by private vehicle. Historian: patient. ( presents with c/o being at work and dropping a containerof bug spray on L middle toe, hes worried because he is on blood thinners for open heart surgery for valvereplacement 05/10).Triage time: 16:33 09/03/2019. Acuity: LEVEL 5.Chief Complaint: INJURY TO LEFT FOOT.Alert. No acute distress.SEPSIS SCREEN: SIRS Screen negative. Sepsis Screen negative. No suspected or confirmed signs ofinfection present. --16:38 09/03/19 Renetta Muhammad RN16:33 09/03/19. BP: 123/78. MAP: 93. HR: 92. RR: 15. O2 saturation: 98%. Temp: 98.1 F. Pain level now:0/10. --16:38 09/03/19 Renetta Muhammad RN.Weight: 97.5 kg stated. Height/Length: 69 inches Per Patient. BMI: 31.8. --16:36 09/03/19 Renetta Muhammad, RN.MedicationsCoumadin Oral (Tablet 5 mg), daily. Lopressor Oral (Tablet 50 mg) 25 mg, daily. --16:42 09/03/19 Renetta Muhammad, SIMRAN.AllergiesNone. --16:42 09/03/19 Renetta Muhammad, RN.PROBLEMS:Aortic Dissection.Atypical Chest Pain.Pulmonary Embolism.Heart valve mechanical. --16:43 09/03/19 Renetta Muhammad, RN.ADDITIONAL SURGERIES:Aortic valve mechanical.Bilateral wrist surgery.Cardiac Procedures.Facial plastic surgery.Urethral dilitation.Valve Replacement. --16:43 09/03/19 Renetta Muhammad, SIMRAN.HistorySOCIAL HX: Never smoker. No alcohol use or drug use. He was offered HIV testing but declined and 2 Clinical Report - Nurses [facility] Emergency Department [address] [place] [address] Phone #: ext- [phone] 09/03/2019 16:32 Patient: KYLE LOCKE [facility]#: [id number] Sex: M : 1975 Age: 44y hepatitis C testing but declined. He has not traveled outside the [place] Infectious disease exposure: No infectious disease exposure. SELF HARM ASSESSMENT: Self harm assessment was performed. The patient answered "no" to the question(s) "Have you recently felt down, depressed, or hopeless?". ABUSE ASSESSMENT: No report of abuse. NUTRITIONAL RISK ASSESSMENT: The nutritional risk assessment revealed no deficiencies. FUNCTIONAL ASSESSMENT: Functional assessment: no impairments noted. LEARNING NEEDS ASSESSMENT: The learning needs assessment revealed no barriers. FALL RISK ASSESSMENT: Fall risk assessment completed. No risk factors identified. SKIN INTEGRITY ASSESSMENT: Skin integrity risk assessment completed. No skin integrity risk identified. --16:47 09/03/19 Renetta Muhammad RN.PHYSICAL ASSESSMENTAmbulatory to room.GENERAL / NEURO / PSYCH: Oriented X 4. Alert. Appears in no acute distress.EXTREMITIES: Capillary refill is less than 2 seconds in the extremities. Extremity pulses are withinnormal limits. Extremities exhibit normal ROM. Neuro-vascular status intact to the extremity. Normalgait. Left foot: tenderness of the third toe (slight redness).SKIN: Skin intact. Skin is warm and dry. --16:46 09/03/19 Renetta Muhammad RN.NURSING PROGRESS NOTESReassurance given. Two patient identifiers checked. Bed placed in lowest position. Brakes of bed on.Patient ready for evaluation. --16:39 09/03/19 Renetta Muhammad, SIMRAN ( PA to bs to eval pt). --16:53 09/03/19 Purvi Cifuentes R.N.DISPOSITION / DISCHARGE Departure time: 17:12 09/03/2019. --17:15 09/03/19 Renetta Muhammad RN Condition at departure: stable. No learning barriers present. Discharge instructions provided and reviewed with the patient. Note given (paperwork filled out for work). Patient verbalized understanding. Written instructions provided in Ivorian. The patient was discharged by the physician cardiology physician assistant. He was discharged home and unaccompanied at time of discharge. He left ambulatory and via private vehicle. Patient driving. --17:16 09/03/19 Renetta Muhammad, SIMRAN 17:12 09/03/19. Pain level now: 0/10. --17:17 09/03/19 Renetta Muhammad, RN. 3 Clinical Report - Nurses [facility] Emergency Department [address] [place] [address] Phone #: ext- [phone] 09/03/2019 16:32 Patient: KYLE LOCKE Sex: M : 1975 Age: 44yLocked/Released at 09/03/2019 17:17 by Renetta Muhammad RN Name Value Range Interpretation Code Description Data Varsha rce(s) Supporting Document(s) ID Date Data Source [id number] 09/03/2019 04:42:00 PM EDT [facility] 1 Clinical Report - Physicians/Mid Levels [facility] Emergency Department [address] [place] [address] Phone #: ext- [phone] 09/03/2019 16:32 Patient: KYLE LOCKE Sex: M : 1975 Age: 44y Time Seen: 16:40 09/03/2019. Arrived- By private vehicle. Historian- patient.HISTORY OF PRESENT ILLNESS Chief Complaint: Injury to the left 3rd toe. The injury happened just prior to arrival. The patient sustained a direct blow. Occurred at work. ( presents with c/o being at work and dropping a container of bug spray on L middle toe, hes worried because he is on blood thinners for open heart surgery for valve replacement 05/10). Patient is experiencing mild pain. (pt reports that after removing his sock and shoe that he is sorry for wasting our time.).REVIEW OF SYSTEMSThe patient has had swelling. No tingling, weakness, numbness, suspected foreign body or skinlaceration. He has no pain on weight bearing.PAST HISTORYProblems:Aortic Dissection.Atypical Chest Pain.Pulmonary Embolism.Heart valve mechanical. Additional Surgeries: Aortic valve mechanical. Bilateral wrist surgery. Cardiac Procedures. Facial plastic surgery. Urethral dilitation. Valve Replacement. Medications: Coumadin Oral (Tablet 5 mg), daily. Lopressor Oral (Tablet 50 mg) 25 mg, daily. Allergies: None.SOCIAL HISTORYNever smoker. No alcohol use or drug use. 2 Clinical Report - Physicians/Mid Levels [facility] Emergency Department [address] [place] [address] Phone #: ext- [phone] 09/03/2019 16:32 Patient: KYLE LOCKE Sex: M : 1975 Age: 44yPHYSICAL EXAMVital Signs: 09/03/2019 16:33 BP: 123/78. MAP: 93. HR: 92. RR: 15. O2 saturation: 98%. Temp: 98.1 F.Pain level now: 0/10. Have been reviewed as normal. Oxygen saturation normal.Appearance: Alert. Oriented X3. No acute distress.Head: Head atraumatic.Eyes: Pupils equal, round and reactive to light. Eyes normal inspection.ENT: Ears normal. Nose normal. Pharynx normal.Neck: Normal inspection.CVS: Normal heart rate.Respiratory: No respiratory distress.Abdomen: No visible injury.Back: Normal inspection.Skin: Skin intact. Skin warm and dry.Extremities: Tip of left third toe: mild erythema and tenderness. Extremities otherwise negative.Neuro, Vascular and Tendons: Vascular status intact. Sensation intact. Motor intact. Tendon functionintact.Gait: Normal gait.Neuro: Oriented X 3.PROGRESS AND PROCEDURESCourse of Care: 17:Sep 03 2019. Evaluation after observation. (Discussed exam findings and ptdeclined x-ray and just wants paperwork filled out for work.). Patient counseled in person regarding the patient's stable condition, test results, diagnosis and need for follow-up. Patient agrees with plan of care. 17:Sep 03 2019. Disposition: Discharged home in good and improved condition (:Sep 03 2019).CLINICAL IMPRESSION Single contusion to the left 3rd toe.No left toenail injury.INSTRUCTIONS Your Current Medications: Your current home medications have been reviewed. CONTINUE TAKING THE FOLLOWING MEDICATIONS: Coumadin Oral : Tablet 5 mg, daily. Lopressor Oral : Tablet 50 mg, 25 mg daily. Follow-up: Follow up with your doctor as needed. Reason for referral: evaluation and treatment. Summary of care 3 Clinical Report - Physicians/Mid Levels [facility] Emergency Department [address] [place] [address] Phone #: ext- [phone] 09/03/2019 16:32 Patient: KYLE LOCKE [facility]#: [id number] Sex: M : 1975 Age: 44y provided to patient. Understanding of the discharge instructions verbalized by patient.(Electronically signed by MCKENNA Avitia 09/03/2019 21:37) Name Value Range Interpretation Code Description Data Varsha rce(s) Supporting Document(s) ID Date Data Source [id number] 08/25/2019 03:33:00 PM EDT [facility] 1 Medication Reconciliation Report [facility] Emergency Department [address] [place] [address] Phone #: ext- [phone] 08/25/2019 15:32 Patient: KYLE LOCKE Sex: M : 1975 Age: 43yWeight: 97.5 kgHeight/Length: 81 in.BMI: 23.0ALLERGIES: NoneThe patient's Home Medications are listed below:THE FOLLOWING MEDICATIONS NEED TO BE RECONCILED: Coumadin Oral (5 mg), daily Lopressor Oral (50 mg) 25 mg, dailyThe source(s) of the original Home Medication information:patientThe following Medications were given to the patient in the Emergency Department:None.The following Medications were prescribed to the patient:None. Name Value Range Interpretation Code Description Data [facility] Supporting Document(s) ID Date Data Source [id number] 08/25/2019 03:33:00 PM EDT [facility] 1 Medication Administration Record [facility] Emergency Department [address] [place] [address] Phone #: ext- [phone] 08/25/2019 15:32 Patient: KYLE LOCKE Sex: M : 1975 Age: 43yWeight: 97.5 kgHeight/Length: 81 inBMI: 23ALLERGIES: NoneDate/Time Medication Administered Medication Ordered Name Value Range Interpretation Code Description Data Varsha rce(s) Supporting Document(s) ID Date Data Source [id number] 08/25/2019 03:33:00 PM EDT [facility] 1 General Instructions [facility] Emergency Department [address] [place] [address] Phone #: ext- [phone] 08/25/2019 15:32 Patient: KYLE LOCKE Sex: M : 1975 Age: 43ySingle contusion to the left upper arm.INSTRUCTIONSApply heat. No lifting greater than 5 lbs for- 3- days.Warnings: GENERAL WARNINGS: Return or contact your physician immediately if your conditionworsens or changes unexpectedly, if not improving as expected, or if other problems arise.Follow-up:Return to the emergency department as needed. Follow up with your healthcare provider in about twodays if not better. Call for an appointment.Understanding of the discharge instructions verbalized by patient. ADDITIONAL INFORMATIONSoft Tissue ContusionYou have a contusion. This is also called a bruise. There is swelling and some bleeding under theskin. This injury generally takes a few days to a few weeks to heal. During that time, the bruise willtypically change in color from reddish, to purple-blue, to greenish-yellow, then to yellow-brown.Home care Elevate the injured area to reduce pain and swelling. As much as possible, sit or lie down with the injured area raised about the level of your heart. This is especially important during the first 48 hours. Ice the injured area to help reduce pain and swelling. Wrap a cold source (ice pack or ice cubes in a plastic bag) in a thin towel. Apply to the bruised area for 20 minutes every 1 to 2 hours the first day. Continue this 3 to 4 times a day until the pain and swelling goes away. Unless another medicine was prescribed, you can take acetaminophen, ibuprofen, or naproxen to control pain. (If you have chronic liver or kidney disease or ever had a stomach ulcer or gastrointestinal bleeding, talk with your doctor before using these medicines.) 2 General Instructions [facility] Emergency Department [address] [place] [address] Phone #: ext- [phone] 08/25/2019 15:32 Patient: KYLE LOCKE Sex: M : 1975 Age: 43yFollow-up careFollow up with your healthcare provider or our staff as advised. Call if you are not better in 1 to 2weeks.When to seek medical adviceCall your healthcare provider right away if you have any of the following: Increased pain or swelling Bruise is on an arm or leg and arm or leg becomes cold, blue, numb or tingly Signs of infection: Warmth, drainage, or increased redness or pain around the contusion Inability to move the injured area or body part Bruise is near your eye and you have problems with your eyesight or eye Frequent bruising for unknown reasons [id number] [employer] [address]. All rights reserved. This information is not intended as asubstitute for professional medical care. Always follow your healthcare professional's instructions. You have been given the following additional information: Soft Tissue Contusion No lifting greater than 5 lbs for- 3- days.(Electronically signed by Ezequiel Jovel P.A.-C 08/25/2019 21:55) Name Value Range Interpretation Code Description Data Varsha rce(s) Supporting Document(s) ID Date Data Source [id number] 08/25/2019 03:33:00 PM EDT [facility] 1 Clinical Report - Nurses [facility] Emergency Department [address] [place] [address] Phone #: ext- [phone] 08/25/2019 15:32 Patient: KYLE LOCKE Sex: M : 1975 Age: 43yTRIAGEArrived by private vehicle. Historian: patient. Unaccompanied.Triage time: 15:33 08/25/2019. Acuity: LEVEL 4.Chief Complaint: RIGHT UPPER EXTREMITY PAIN. Location of symptoms- right arm.Alert. No acute distress.An injury may have occurred. ( Pt states he had open heart surgery with bicuspid mechanical valve inJanuary 2019 and is on coumadin. Pt states yesterday he reached his arm over his wooden fence inorder to open the gate and he had trouble with the latch and was there in this position for about 15 minutes.Pt states his left bicep is painful and he is concerned for internal bleeding due to coumadin.).Treatment FINANCIAL ANALYST:None.SEPSIS SCREEN: NEGATIVE. Negative (no infection suspected/documented). (15:43 08/25/2019).--15:43 08/25/19 Mattie Ray R.N.15:33 08/25/19. BP: 133/79. MAP: 97. HR: 101. RR: 18. O2 saturation: 98% on room air. Temp: 96.7 F(oral). Pain level now: 0/10. Pain level at maximum: 3/10 (with pressure). --15:43 08/25/19 Mattie Ray R.N.Weight: 97.5 kg stated. Height/Length: 81 inches Per Patient. BMI: 23. --15:33 08/25/19 Mattie Ray R.N.MedicationsCoumadin Oral (Tablet 5 mg), daily. Lopressor Oral (Tablet 50 mg) 25 mg, daily. --15:36 08/25/19 Mattie Ray R.N.AllergiesNone. --15:36 08/25/19 Mattie Ray R.N.PROBLEMS:Chest Pain.Coronary Artery Disease.Atypical Chest Pain.Aortic Disease.Aortic Dissection.Gerd.Pulmonary Embolism.Oral Anticoagulation Therapy. 2 Clinical Report - Nurses [facility] Emergency Department [address] [place] [address] Phone #: [phone] 08/25/2019 15:32 Patient: KYLE LOCKE Sex: M : 1975 Age: 43y Heart valve mechanical. --15:38 08/25/19 Mattie Ray R.N. Medication/allergy information source: the patient. --15:43 08/25/19 Mattie Ray R.N. ADDITIONAL SURGERIES: Aortic valve mechanical. Bilateral wrist surgery. Cardiac Procedures. Facial plastic surgery. Urethral dilitation. Valve Replacement. --15:38 08/25/19 Mattie Ray R.N. History PAST MEDICAL HX: Tetanus status: up-to-date. Immunizations: up-to-date. SOCIAL HX: Never smoker. No alcohol use or drug use. He was offered HIV testing but declined. Patient education was provided. He was offered hepatitis C testing but declined. Patient education was provided. ( COVID screen negative). He has not traveled outside the [place] Infectious disease exposure: No infectious disease exposure. Patient is not a known carrier of tuberculosis, hepatitis, HIV, MRSA or VRE. Patient is not a known carrier of CRE. SELF HARM ASSESSMENT: Self harm assessment was performed. The patient answered "no" to the question(s) "Do you have thoughts of harming or killing yourself?" and "Do you have a plan for harming or killing yourself?". ABUSE ASSESSMENT: Abuse assessment. The patient had positive responses to the question(s) "Do you feel safe in your home?". Abuse denied. No suspicion of abuse. No report of abuse. NUTRITIONAL RISK ASSESSMENT: The nutritional risk assessment revealed no deficiencies. FUNCTIONAL ASSESSMENT: Functional assessment: no impairments noted. LEARNING NEEDS ASSESSMENT: The learning needs assessment revealed no barriers. FALL RISK ASSESSMENT: Fall risk assessment completed. No risk factors identified. SKIN INTEGRITY ASSESSMENT: Skin integrity risk assessment completed. No skin integrity risk identified. --15:43 08/25/19 Mattie Ray R.N. Interventions Identification band on patient. --15:43 08/25/19 Mattie Ray R.N.PHYSICAL ASSESSMENTGENERAL / NEURO / PSYCH: Oriented X 4. Alert. Appears in no acute distress.EXTREMITIES: Extremi ties exhibit normal ROM. Neuro-vascular status intact to the extremity. No upper 3 Clinical Report - Nurses [facility] Emergency Department [address] [place] [address] Phone #: ext- [phone] 08/25/2019 15:32 Patient: KYLE LOCKE Sex: Kyle : 1975 Age: 43y extremity edema. Skin is non-tender on the extremities. Left arm: tenderness. SKIN: Skin intact. Skin is warm and dry. --15:57 08/25/19 Purvi Cifuentes R.N.NURSING PROGRESS NOTESPatient gowned. Bed placed in lowest position. Brakes of bed on. Patient ready for evaluation- PAnotified. --15:58 08/25/19 Purvi Cifuentes R.N.DISPOSITION / DISCHARGE Condition at departure: improved and stable. No learning barriers present. Discharge instructions provided and reviewed with the patient. Activity restrictions reviewed. Patient verbalized understanding. Written instructions provided in Ivorian. The patient was discharged by the physician cardiology physician assistant. He was discharged home. He left ambulatory and via private vehicle. Patient driving. --16:48 08/25/19 Renetta Muhammad, RN 16:48 08/25/19. BP: deferred. HR: deferred. RR: deferred. O2 saturation: deferred. Temp: deferred. Pain level now: 0/10. --16:48 08/25/19 Renetta Muhammad, SIMRAN.Locked/Released at 08/25/2019 16:49 by Purvi Cifuentes R.N. Name Value Range Interpretation Code Description Data Varsha rce(s) Supporting Document(s) ID Date Data Source [id number] 08/25/2019 03:33:00 PM EDT [facility] 1 Clinical Report - Physicians/Mid Levels [facility] Emergency Department [address] [place] [address] Phone #: ext- [phone] 08/25/2019 15:32 Patient: KYLE LOCKE Sex: M : 1975 Age: 43y Time Seen: 16:14 08/25/2019; initial patient contact, initial documentation. Arrived- By private vehicle. Historian- patient.HISTORY OF PRESENT ILLNESS Chief Complaint: UPPER EXTREMITY PAIN. Severity is described as being mild. The quality is noted to be dull and aching. This started yesterday and is still present. Symptoms located in the area of the left arm. No chest pain, difficulty breathing, swelling, sensory loss or motor loss. No repetitive hand use at work. He has not had redness. (Pt presents w/ c/o of L arm pain (improving) from yesterday. Sts that he was standing outside his fence and was attempting to open his gate and was reaching over the fence and was resting his arm on it while he was trying to open the gate. Sts that he was there maybe about 10mins. Pt sts that he is on coumadin. Has been on since April due to mechanical valve replacement. Sts that he has INR checked on Monday. Sts that he did have conversation with metal lather and will be monitoring his levels. Pt sts he is unsure and reason here due to concerns for possible internal bleeding of arm. Denies any currnet or new onset of CP, SOB, dyspnea, or palps.). Patient notes the possibility of an injury.REVIEW OF SYSTEMSNo fever, chills, eye discomfort, headache or depression. No sore throat, cough, skin rash, enlargedlymph nodes or abdominal pain. No nausea, vomiting, black stools, difficulty with urination or urinaryfrequency. No hematuria or bloody stools.PAST HISTORYSee nurses notes. Problems: Other Disease. Heart Disease. Chest Pain. Coronary Artery Disease. Atypical Chest Pain. Aortic Disease. Aortic Dissection. Gerd. Pulmonary Embolism. 2 Clinical Report - Physicians/Mid Levels [facility] Emergency Department [address] [place] [address] Phone #: ext- [phone] 08/25/2019 15:32 Patient: KYLE LOCKE [facility]#: [id number] Sex: M : 1975 Age: 43y Oral Anticoagulation Therapy. Heart valve mechanical. Additional Surgeries: Aortic valve mechanical. Bilateral wrist surgery. Cardiac Procedures. Facial plastic surgery. Urethral dilitation. Valve Replacement. Medications: Coumadin Oral (Tablet 5 mg), daily. Lopressor Oral (Tablet 50 mg) 25 mg, daily. Allergies: None.SOCIAL HISTORYNever smoker. No alcohol use or drug use.ADDITIONAL NOTESThe nursing notes have been reviewed.PHYSICAL EXAMVital Signs: 08/25/2019 15:33 BP: 133/79. MAP: 97. HR: 101. RR: 18. O2 saturation: 98% on room air.Temp: 96.7 F. Pain level now: 0/10. Have been reviewed. Oxygen saturation normal.Appearance: Alert. Oriented X3. No acute distress.ENT: Voice normal.CVS: Normal heart rate and rhythm. No JVD present. Pulses normal. Capillary refill normal. Strongperipheral pulses. Heart sounds normal. Pulses: left brachial 2+; right radial 2+; left radial 2+. Loudclick 2/2 mechanical valve hearad.Respiratory: Chest normal on inspection. No respiratory distress. Unlabored respirations. Lungs clear.Good chest movement. Breath sounds normal and equal. Chest nontender. Healed surgical scar.Skin: Skin warm and dry.Extremities: Upper extremities normal to inspection. Upper extremities exhibit normal ROM. No signs ofinfection present in the upper extremities. No upper extremity pulse deficit present. No upper extremityedema. No left clavicle complaint, left shoulder complaint, left arm complaint, left elbow complaints or leftforearm complaints. No left wrist complaint or left hand complaint. Extremities otherwise negative.Neuro: Awake. Alert. Mood/affect normal. Speech normal. No motor deficit. No sensory deficit.Reflexes normal. Reflex exam: right triceps 2+, left triceps 2+, right biceps 2+, left biceps 2+, rightbrachioradialis 2+ and left brachioradialis 2+.Psych: Cognition normal. Thought process and content normal. Insight and judgement normal.PROGRESS AND PROCEDURES 3 Clinical Report - Physicians/Mid Levels [facility] Emergency Department [address] [place] [address] Phone #: ext- [phone] 08/25/2019 15:32 Patient: KYLE LOCKE Sex: M : 1975 Age: 43y Course of Care: VSS, NAD, AOx3, interacting well and appropriately, no use of accessory muscle, able to speak full sentences, stable, non-toxic looking. Enter room and pt lying peacefully in bed in NAD. Patient stable. Denies any new issues, concerns, or complaints. PE demos NV intact b/l UE. No pulse deficits noted. equal brachial and radial of hte LUE. No echymosis, edema, or tenseness noted of area. DTRs equal b/l. AIN, PIN, R/U/M intact. SILT. Based on PE no abnormalities noted. No brusing to suggest bleeding, espeically on coumadin. Discussed with attending and will discharge. Deneis any new s/s other than arm discomfort. Did indicate occasional dizziness, but this has been since April and on BB and associated with activity. Sts not new s/s. Enter room and patient sitting peacefully in bed in NAD. Patient stable. Denies any new issues, concerns, or complaints. Discussed results with pt. Discussed tx plan with pt. Discussed and counseled on stable condition. Discussed importance of a f/u with PCP. Discussed return to ER criteria. Answered their questions. Indicates and verbalizes that they understand, agree, and will comply with above. Denies any new questions or concerns. Patient has capacity to understand. Reassured pt. Discharge decision based on the following: patient's condition is stable; patient's exam is stable; social support is adequate; transportation is available; follow-up is available. Discussed of OTC Motrin and Tylenol to control inflammation and pain management. Informed to follow directions on bottle that are appropriate for age and/or weight. Discussed case with health care provider (Griselda). Disposition: Discharged home in good and improved condition. Condition: good and stable.CLINICAL IMPRESSION Single contusion to the left upper arm.INSTRUCTIONS Apply heat. No lifting greater than 5 lbs for- 3- days. 4 Clinical Report - Physicians/Mid Levels [facility] Emergency Department [address] [place] [address] Phone #: ext- [phone] 08/25/2019 15:32 Patient: KYLE LOCKE Sex: M : 1975 Age: 43y Warnings: GENERAL WARNINGS: Return or contact your physician immediately if your condition worsens or changes unexpectedly, if not improving as expected, or if other problems arise. Follow-up: Return to the emergency department as needed. Follow up with your healthcare provider in about two days if not better. Call for an appointment. Understanding of the discharge instructions verbalized by patient.(Electronically signed by Ezequiel Jovel P.A.-C 08/25/2019 21:55) Name Value Range Interpretation Code Description Data Varsha rce(s) Supporting Document(s) ID Date Data Source [id number] 08/06/2019 04:09:49 PM EDT [facility] Name Value Range Interpretation Code Description Data Varsha rce(s) Supporting Document(s) &PDF [facility] GQZFWd2qNvZKKnJp53/DCJstTZXzk2MhPOvjASc8ENedXMBtN3EzvSqpULxST18ZH62NFMaDL3oVDYYN 0b3 UnROJsToEHdHE3KD0iFUGateNvfvH1tZ3mBC0VFYU+Hp1YOM5ah9OaVVt7XDGvn9JuMFboZCw7Q9QhjE GlosYkAmgqiYQBFEHzGKLtA4wifmb2gZKmWPM1Pa2VMoBei6NeFZLjMEyAqt0cmK8wHCz+vtL+h5JGq8 3FUHt93AyTpIisyIDImTwZXYlNwz82IiemRSvBng70 UQ1+1ot7oxkpYYjyL24cj064evptY4h7x/+x9ALOtgZL/64/pnmojs/DEPUTY BRAND INSPECTOR/+uffdM2LrVoVoxoQTuhhzi [file] AgICAgICAgICAgICAgICAgICAgICAgICAgICAgICAgICAgICAgICAgICAgICAgICAgICAgICAgICAgIC AgICAgICAgICAgICAgICAgICAgICAgICAgICAgICAg MVHlDDSfRI5ODHCsTMCbSAZaLFGcYHOqBEGuFLAcMCNiYSKhWRCbMGVgNFWsLTHoHUJrBRUwTRUcYLCx SAVrONAeVGDzYDMvPGFpIXDoIKMcMKVlBXIeVMYtXPYkWMXkQEQcRMTzGZDfTLCbZW3TDJEjECIpHXBa ICAgICAgICAgICAgICAgICAgICAgICAgICAgICAgIC AgICAgICAgICAgICAgICAgICAgICAgICAgICAgICAgICAgICAgICAgICAgICAgICAgICAgICAgICAgIA 0KICAgICAgICAgICAgICAgICAgICAgICAgICAgICAgICAgICAgICAgICAgICAgICAgICAgICAgICAgIC AgICAgICAgICAgICAgICAgICAgICAgICAgICAgICAg XYGjSCQzMPPlQU2UEEWyBDVsIEQsWNLuREZpGQBtJPYdEPTsDOBcWFTyKTXjAJUaUCVnTKAnXRJmPKKg GAEhGYUbVLEgJDElSAGgAIRdNZAuZAByKUClOACxKEUtKKWhBYRfZGMgJJMuQLSqVPTjOE1GZFDnWUZw ICAgICAgICAgICAgICAgICAgICAgICAgICAgICAgIC AgICAgICAgICAgICAgICAgICAgICAgICAgICAgICAgICAgICAgICAgICAgICAgICAgICAgICAgICAgIC OdJA7BTVGiTRYgKPKtEOJjUAGgDHNdAVGtWYDhLIFqMLHoNWThDLOjLGUqIKLtAOVnDEViZNXwUQNyGB AgICAgICAgICAgICAgICAgICAgICAgICAgICAgICAg PNLpPIXqLBTyYFHrFC4VPMMyCLObRDDgZGLwIGFqKMHtMAPeTMLiKNGmFEAoFRWwECHvPWQsIKVfUUDm UCOaTCFcFTKdMOAeTQNoVEMbUFXmEEUkLUGpUQTmOQDwNLXyTHRaUIKkGSZlIPRlHKPzOJWkFN7RAAPb ICAgICAgICAgICAgICAgICAgICAgICAgICAgICAgIC AgICAgICAgICAgICAgICAgICAgICAgICAgICAgICAgICAgICAgICAgICAgICAgICAgICAgICAgICAgIC VhWHNaOW3HOPJaSWWzODKjQPOjKNMeJNVxUGUzOFYfOEOkPWSoIPTfHJMhQKBsRTSlXUTnGPAhKOFeDZ AgICAgICAgICAgICAgICAgICAgICAgICAgICAgICAg ZKUnBEThMFZhJGGwRRTaUB5LVO04tQFaf3C4UMBwDA1pppu/Kd1DYFiyqvGyaAKlGM2CHaCjKN0eaa1P MpQaMT7ljy1BOHbIVrTfT3X9uSUcNCZfIKZDMcJhU88tELytTb45JLlzGXUzRjAfWWu3Zx8WFkErX3mb QNDvNlI1AZFoWlP2XIMxZsZbTAsaYP9Vs4LlbGQdPB o+Zb9JFX1ls5FdTXhpMeLcZY1mim6EZUzWFmYbG8G9zEKvD9G9KWfiRz7UASYfNUDjPuDiWRFVBJlkBR 6FOY5zfsT1WQ7BiVQkZPOgEMYdmDYiYFd8G59xwQGlJUkkBJ0HXIS+Maranda+Um1GZYJqLFEjDARxPzWtBG BSMjFaX16zbTNrYMXxUOQ1WKPdMf7QEGNaA6ZgcaMi dUtxdsUmRZZhUVKKZA1YQCaddfFzaKQahCksYU80jQobWX8XHj1AFbUkLK2rzt6CuGBbPg0JUSObXe8O NXOwRSIvFSEnAEX5PLHaGcLeZTluIHUfHHGdVNS6EGTuWCTcAW0LBzAvBZTwPmB1KNbcMZTfNUFrim0P UUFjLAQgCcjoGITiARObVMWoRIkkEWGyEABeINf2SV VrHONiLP0NKhQfCPSrRWVmMYbmRGNgAXCpia5VUWNsYOYgPgNeFfXnUCLePPArUUeyDLEyTNO7Jel8JQ ZjFDTcMZ0CRpKaPJFeRUD8CflyOBBlCJWhhd1POVUkOSZaTnIjVgDiBNArWCXfVLqzNNFlRGX3ZlTfML DgHJXgQM5YFnCrFXYlHXk3EELzVNZnNBDbar3VIYYz VVHcFXm0WaTuKIIjFCSnNDtlUCXfEVC8KPg5RHEaRANsTX5NZqUbWSMcMFhqJdQhCMAyLOOhze5CTVSf HAYjYSSpLQVaJEZwAJUwQLpdXRRtSSI1OrI3HHVnSOCdYD5KIjWwLISjEDT8UAuxFNAsJEJuwt7CXSPu BFBmFLo8XWIzOCJsZIBpRKznFOVcUIZ9WDU0XUKdKF NiTL8IDfFwAWUlFDD6QyliNXQgRJLbdz5AKIPvSLBuOzX2NpYfVZDbSVKiHQpnXCNySJA3VhM4LAAaXK VuFG7ZEyOxMGMfOcA9UQrvNZYnGOPpjy2KEACzTBIbNGsfXzVqHKQeDXFvMRcaZTTqAGI0Ddt4YZHpVZ RuEE3FIdRnDFKyJsA0QxznULXeCGDnvm5SwXCkbQdx po0WOEcCZl3RcDcwKIZ8SWikDs2qqAZwAaQnQMWUXg4BwtXaFSWkKGCMHGxdQPMbTKd8FWQ1NBB5KNDa XkHfLUOiOqY5NaJyDxEwCgroVVNeHqD1QCGzVJb8RAFxJZGoMqAkT5LsVTOnOVAkVUR0AdOyR0H+IF0g DQo+Ky0Xp7AnciI1hkHiKHuxFwLxGS1MYESSG9BUPz== ID Date Data Source [id number] 07/16/2019 08:13:00 [place] [address] PHONE: [phone] FAX: [phone] Name ..............: BARBARA Platt Acct Number ...........................: [id number] ROOM. ............: TR-03 MR Number ............................: Stay type.........: E/R Discharge Date...............:07/14/19 Admit Date .....: 07/14/19 Admit Phys .............................: GRISELDA FOY Date of ..: 1975 Family Phys ...........................: UNKNOWN Phone..............: [phone] Age.................................:43 Film# ...............: Sex.................................:M Unsigned transcriptions are preliminary reports and do [place] [id number] COMPLETE:07/15/19 06:06 ED 48012 Please See Scanned Results. Name Value Range Interpretation Code Description Data Varsha rce(s) Supporting Document(s) ID Date Data Source [id number] 07/15/2019 04:52:00 [place] [address] PHONE: [phone] FAX: [phone] Name .................. : BARBARA Platt Acct Number.................. : [id number] ROOM. ................. : TR-03 MR Number ................... : Stay type ............. : E/R Discharge Date......... ... : Admit Date ......... : 07/14/19 Admit Phys .................... : GRISELDA FOY Date of ....... : 1975 Family Phys ................... : UNKNOWN Phone .................. : [phone] Age ................................ : 43 Film# .................. .:[id number] Sex ................................. : M Unsigned transcriptions are preliminary reports and do not represent a medical or legal document DOPPLER VENOUS BILAT LEG [id number] COMPLETE:07/14/19 11:26 HGL [id number] Reason(s): Discolored Extremity BILATERAL LOWER EXTREMITY DUPLEX ULTRASOUND: INDICATION: Discolored extremity. FINDINGS: Normal compressibility is demonstrated at bilateral common femoral, superficial femoral and popliteal veins without i nternal defects to suggest DVT. Normal color and spectral Doppler is demonstrated with augmentation. IMPRESSION: No DVT in bilateral common femoral veins to the popliteal veins. Electronically Reviewed and Signed By Galileo Montanez M.D. , 07/15/19 16:52, [place] Transcribe Initials: WILL , Transcribe Date: 07/14/19 12:27, Dictation Date: Copy for: EMERGENCY DEPT via mode Copy for: 710 MED REC DISCHARGED Page 1 of 1 Name Value Range Interpretation Code Description Data Varsha rce(s) Supporting Document(s) ID Date Data Source [id number] 07/15/2019 04:52:00 PM EDT [facility] [address] [facility] [place] [address] PHONE: [phone] FAX: [phone] Name .................. : BARBARA Platt Acct Number.................. : [id number] ROOM. ................. : TR-03 MR Number ................... : [id number] Stay type ............. : E/R Discharge Date......... ... : Admit Date ......... : 07/14/19 Admit Phys .................... : GRISELDA FOY Date of ....... : 1975 Family Phys ................... : UNKNOWN Phone .................. : [phone] Age ................................ : 43 Film# .................. .: Sex ................................. : M Unsigned transcriptions are preliminary reports and do not represent a medical or legal document CT CTA CHEST NON-CORONARY W C 84513 COMPLETE:07/14/19 10:33 [id number] Reason(s): Chest pain / Hx of P.E. / Hx of Marfans CTA OF THE CHEST WITH CONTRAST: INDICATION: Chest pain. History of pulmonary embolism. History of Marfans disease. FINDINGS: The neck base is clear. The lungs demonstrate trace dependent atelectasis. No focal infiltrate. The heart is normal in size. There is evidence of prior cardiac surgery. An aortic valve replacement is noted. There is no evidence of pulmonary embolism. No lymphadenopathy. The visualized upper abdomen is normal. No acute osseous abnormality. No evidence of thoracic aortic dissection. IMPRESSION: No evidence of pulmonary embolism or aortic dissection. No acute pulmonary process. While performing the above CT examination, radiation dose reduction was accomplished utilizing automated exposure control, adjusting of the mA and kV based on the patient's body size and/or the use of imperative reconstructive techniques. CT dose: 597.5 mGycm Contrast agent in mL: 75 Isovue 370 Method of administration: Intravenous Page [address] [facility] [address] [place] [address] PHONE: [phone] FAX: [phone] Name .................. : LOCKE KYLE Giulia Acct Number.................. : [id number] ROOM. ................. : TR-03 MR Number ................... : Stay type ............. : E/R Discharge Date......... ... : Admit Date ......... : 07/14/19 Admit Phys .................... : GRISELDA FOY Date of ....... : 1975 Family Phys ................... : UNKNOWN Phone .................. : [phone] Age ................................ : 43 Film# .................. .: Sex ................................. : M Unsigned transcriptions are preliminary reports and do not represent a medical or legal document CT CTA CHEST NON-CORONARY W C 96834 COMPLETE:07/14/19 10:33 [id number] Reason(s): Chest pain / Hx of P.E. / Hx of Marfans Electronically Reviewed and Signed By Galileo Montanez M.D. , 07/15/19 16:52, [place] Transcribe Initials: WILL , Transcribe Date: 07/14/19 12:24, Dictation Date: Copy for: EMERGENCY DEPT via modem Copy for: 710 MED REC DISCHARGED Page 2 of 2 Name Value Range Interpretation Code Description Data Varsha rce(s) Supporting Document(s) ID Date Data Source [id number] 07/14/2019 09:24:00 AM EDT [facility] 1 OrderSheet [facility] Emergency Department [address] [place] [address] Phone #: ext- [phone] 07/14/2019 09:08 Patient: KYLE LOCKE Sex: M : 1975 Age: 43yWEIGHT:97.5 kg (S) HEIGHT:81 inches (S) BMI:23.0ALLERGIES: NoneCHIEF COMPLAINT: chest painDIAGNOSIS: Chest pain, Anticoagulant therapyLAB ORDERSOrder Description Priority Entered Acknowledged InitialedTroponin-T STAT 09:07/14/2019 09:38 Whitley Mathews R.N. Physician;D-Dimer STAT 09:07/14/2019 09:38 Whitley Mathews R.N. Physician;CMP STA T 09:07/14/2019 09:38 Whitley Mathews R.N. Physician;CPK STAT 09:29 07/14/2019 09:38 Whitley Mathews R.N. Physician;CBC w Diff STAT 09:29 07/14/2019 09:38 Whitley Mathews R.N. Physician;PTT STAT 09:29 07/14/2019 09:38 Whitley Mathews R.N. Physician;PT/INR STAT 09:29 07/14/2019 09:38 Whitley Mathews R.N. Physician;Urinalysis (Clean STAT 09:54 07/14/2019 10:08 Robert Mathews) Ayo Reis R.N. Physician;Troponin-T STAT 13:14 07/14/2019 13:37 Ayo Boles R.N. Physician;DIAGNOSTIC STUDY ORDERSOrder Description Priority Entered Acknowledged InitialedCT CTA CHEST STAT 10:33 07/14/2019 10:38 Jareth Boles OrderSheet [facility] Emergency Department [address] [place] [address] Phone #: ext- [phone] 07/14/2019 09:08 ----- Patient: KYLE LOCKE Sex: M : 1975 Age: 43y(NONCOR) W CON Ayo Hernandez R.N.INC PP Physician;(Oxygen?(No))(IV?(Yes)) NOTES: S/P mechanical aortic valve placement Reason for Study: Chest pain / Hx of P.E. / Hx of MarfansUS Lower Ext STAT 11:00 07/14/2019 11:03 Elvi,Venous Bilateral Ayo Hernandez R.N.(Oxygen?(No)) Physician; NOTES: Marfan's / Mechanical aortic valve Reason for Study: Discolored Extremity, Lower Ext Pain/ImmobilityMEDICATION/IV/DRIP/FLUID ORDERSOrder Description Priority Entered Acknowledged InitialedGENERAL ORDERSOrder Description Priority Entered Acknowledged InitialedEKG 09:29 07/14/2019 09:38 Whitley Mathews R.N. Physician;Pick Up Attendant :07/14/2019 09:38 Whitley Mathews(continuous) Ayo Reis R.N. Physician;Pulse oximeter :07/14/2019 09:38 Whitley Mathews(Continuous) Ayo Reis R.N. Physician;Saline Lock 07/14/2019 09:38 Whitley Mathews R.N. Physician;[Electronically signed by David Boles R.N. (14:39 07/14/2019)][Electronically signed by Ayo Reis Physician (09:10 07/15/2019)][Electronically locked by David Boles R.N. (14:39 07/14/2019)] Name Value Range Interpretation Code Description Data Varsha rce(s) Supporting Document(s) ID Date Data Source [id number] 07/14/2019 09:24:00 AM EDT [facility] 1 Medication Reconciliation Report [facility] Emergency Department [address] [place] [address] Phone #: ext- [phone] 07/14/2019 09:08 Patient: KYLE LOCKE Sex: M : 1975 Age: 43yWeight: 97.5 kgHeight/Length: 81 in.BMI: 23.0ALLERGIES: NoneThe patient's Home Medications are listed below:THE FOLLOWING MEDICATIONS NEED TO BE RECONCILED: Coumadin Oral (5 mg), daily Lopressor Oral (50 mg) 1/2 tablet, dailyThe source(s) of the original Home Medication information:Not obtained.The following Medications were given to the patient in the Emergency Department:None.The following Medications were prescribed to the patient:None. Name Value Range Interpretation Code Description Data Varsha rce(s) Supporting Document(s) ID Date Data Source [id number] 07/14/2019 09:24:00 AM EDT [facility] 1 Medication Administration Record [facility] Emergency Department [address] [place] [address] Phone #: ext [phone] 07/14/2019 09:08 Patient: KYLE LOCKE Sex: M : 1975 Age: 43yWeight: 97.5 kgHeight/Length: 81 inBMI: 23ALLERGIES: NoneDate/Time Medication Administered Medication Ordered Name Value Range Interpretation Code Description Data Varsha rce(s) Supporting Document(s) ID Date Data Source [id number] 07/14/2019 09:24:00 AM EDT [facility] 1 General Instructions [facility] Emergency Department [address] [place] [address] Phone #: ext [phone] 07/14/2019 09:08 Patient: KYLE LOCKE Sex: M : 1975 Age: 43yChest pain characterized as "discomfort", "pressure" and "tightness"(R sided symptoms).Oral anticoagulation therapy with subtherapeutic INR.INSTRUCTIONSDo not work today, tomorrow.Avoid stimulants (such as cigarettes, coffee, cold medicines, sinus medicines, street drugs).(Need to increase INR by increasing Coumadin dose. Talk to provider.).Warnings: Further evaluation is necessary.GENERAL WARNINGS: Return or contact your physician immediately if your condition worsens orchanges unexpectedly, if not improving as expected, or if other problems arise.Follow-up:Follow up with your doctor. Call for the next available appointment. Reason for referral: evaluation,treatment and Chest pain / Inadequate anticoagulation.Understanding of the discharge instructions verbalized by patient. ADDITIONAL INFORMATIONUncertain Causes of Chest Pain 2 General Instructions [facility] Emergency Department [address] [place] [address] Phone #: ext- [phone] 07/14/2019 09:08 Patient: KYLE LOCKE Sex: Kyle : 1975 Age: 43yChest pain can happen for a number of reasons. Sometimes the cause can't be det ermined. Ifyour condition does not seem serious, and your pain does not appear to be coming from your heart,your healthcare provider may recommend watching it closely. Sometimes the signs of a seriousproblem take more time to appear. Many problems not related to your heart can cause chest pain.These include: Musculoskeletal. Costochondritis is an inflammation of the tissues around the ribs that can occur from trauma or overuse injuries, or a strain of the muscles of the chest wall Respiratory. Pneumonia, collapsed lung (pneumothorax), or inflammation of the lining of the chest and lungs (pleurisy) Gastrointestinal. Esophageal reflux, heartburn, ulcers, or gallbladder disease Anxiety and panic disorders Nerve compression and inflammation Rare miscellaneous problems such as aortic aneurysm (a swelling of the large artery coming out of the heart) or pulmonary embolism (a blood clot in the lungs)Home careAfter your visit, follow these recommendations: Rest today and avoid strenuous activity. 3 General Instructions [facility] Emergency Department [address] [place] [address] Phone #: ext- [phone] 07/14/2019 09:08 Patient: KYLE LOCKE Sex: M : 1975 Age: 43y Take any prescribed medicine as directed. Be aware of any recurrent chest pain and notice any changesFollow-up careFollow up with your healthcare provider if you do not start to feel better within 24 hours, or as advised.Call [phone] if any of these occur: A change in the type of pain: if it feels different, becomes more severe, lasts longer, or begins to spread into your shoulder, arm, neck, jaw or back Shortness of breath or increased pain with breathing Weakness, dizziness, or fainting Rapid heart beat Crushing sensation in your chestWhen to seek medical adviceCall your healthcare provider right away if any of the following occur: Cough with dark colored sputum (phlegm) or blood Fever of 100.4F (38C) or higher, or as directed by your healthcare provider Swelling, pain or redness in one leg [id number] [employer]. [address] [place] [address]. All rights reserved. This information is not intended as asubstitute for professional medical care. Always follow your healthcare professional's instructions. You have been given the following additional information: Chest Pain, Uncertain Cause Do not work today, tomorrow.(Electronically signed by Ayo Reis, Physician 07/15/2019 09:10) 4 General Instructions [facility] Emergency Department [address] [place] [address] Phone #: ext- [phone] 07/14/2019 09:08 Patient: KYLE LOCKE Sex: M : 1975 Age: 43y Name Value Range Interpretation Code Description Data Varsha rce(s) Supporting Document(s) ID Date Data Source [id number] 07/14/2019 09:24:00 AM EDT [facility] 1 Clinical Report - Nurses [facility] Emergency Department [address] [place] [address] Phone #: ext- [phone] 07/14/2019 09:08 Patient: KYLE LOCKE [facility]#: [id number] Sex: M : 1975 Age: 43yTRIAGEArrived by private vehicle. Historian: patient. Unaccompanied. ( chest pain left upper chest nonreproducible also had intermittently last week primary told nothing ordered).Acuity: LEVEL 3.Chief Complaint: CHEST PAIN and (right side chest pain).Alert. No acute distress.This started yesterday.Treatment FINANCIAL ANALYST:None.SEPSIS SCREEN: Negative (no infection suspected/documented). --09:18 07/14/19 Whitley Mathews R.N.09:10 07/14/19. BP: 132/88. MAP: 102. HR: 88. RR: 18. O2 saturation: 99% on room air. Temp: 97.8 F(oral). Pain level now: 05/03. --09:18 07/14/19 Whitley Mathews R.N.Weight: 97.5 kg stated. Height/Length: 81 inches Per Patient. BMI: 23. --09:09 07/14/19 Whitley Mathews R.N.MedicationsCoumadin Oral (Tablet 5 mg), daily. --09:14 07/14/19 Whitley Mathews R.N. Lopressor Oral (Tablet 50 mg) 1/2 tablet, daily. --09:14 07/14/19 Whitley Mathews R.N.AllergiesNone. --09:14 07/14/19 Whitley Mathews R.N.PROBLEMS:Heart valve mechanical.Heart Disease. --09:16 07/14/19 Whitley Mathews R.N.Gerd. --09:18 07/14/19 Whitley Mathews R.N.Atypical Chest Pain.Chest Pain.Aortic Dissection.Coronary Artery Disease.Pulmonary Embolism.Aortic Disease. --10:17 07/14/19 David Boles R.N.ADDITIONAL SURGERIES:Aortic valve mechanical. --09:16 07/14/19 Whitley Mathews R.N.Cardiac Procedures. 2 Clinical Report - Nurses [facility] Emergency Department [address] [place] [address] Phone #: ext- [phone] 07/14/2019 09:08 Patient: KYLE LOCKE Sex: M : 1975 Age: 43y Valve Replacement. --10:17 07/14/19 David Boles R.N. History PAST MEDICAL HX: Immunizations: up-to-date. SOCIAL HX: Smoker- current status unknown (quit 10 years ago). Occasional alcohol use. No drug use. The patient was offered HIV testing but declined and hepatitis C testing but declined. The patient has not traveled outside the [place] Infectious disease exposure: No infectious disease exposure. Patient is not a known carrier of tuberculosis, hepatitis, HIV, MRSA or VRE. Patient is not a known carrier of CRE. SELF HARM ASSESSMENT: Self harm assessment was performed. The patient answered "no" to the question(s) "Have you recently felt down, depressed, or hopeless?", "Do you have thoughts of harming or killing yourself?", "Do you have a plan for harming or killing yourself?", "Have you recently had thoughts about harming or killing others?", "Do you have any dangerous items in your possession?", "Have you noticed less interest or pleasure in doing things?", "Are you here because you tried to hurt yourself?" and "Have you ever tried to hurt yourself before today?". ABUSE ASSESSMENT: Abuse assessment. Abuse denied. No suspicion of abuse. No report of abuse. NUTRITIONAL RISK ASSESSMENT: The nutritional risk assessment revealed no deficiencies. FUNCTIONAL ASSESSMENT: Functional assessment: no impairments noted. LEARNING NEEDS ASSESSMENT: The learning needs assessment revealed no barriers. FALL RISK ASSESSMENT: Fall risk assessment completed. No risk factors identified. SKIN INTEGRITY ASSESSMENT: Skin integrity risk assessment completed. No skin integrity risk identified. --:18 07/14/19 Whitley Mathews R.N. Interventions Identification band on patient. To treatment room. --:07/14/19 Whitley Mathews R.N.PHYSICAL ASSESSMENTGENERAL / NEURO / PSYCH: Alert. Oriented X 4. Appears in no acute distress.HEENT: Mucous membranes are pink.RESPIRATORY: Respirations not labored. Breath sounds within normal limits.CVS: Normal sinus rhythm noted. Heart sounds within normal limits. Pulses within normal limits. (mechanical valve heard). Capillary refill less than 2 seconds.GI / : Abdomen soft and nontender.EXTREMITIES: No lower extremity edema.SKIN: Skin is warm and dry. Normal skin turgor. Skin is non-tender. --:07/14/19 Whitley Mathews R.N.NURSING PROGRESS NOTES 3 Clinical Report - Nurses [facility] Emergency Department [address] [place] [address] Phone #: ext- [phone] 07/14/2019 09:08 Patient: KYLE LOCKE Sex: M : 1975 Age: 43yCardiac monitor and pulse oximeter placed on patient. EKG time: (09:14 07/14/2019). EKG wasperformed by a tech and shown to the ED physician. Patient gowned. Reassurance given. Two patientidentifiers checked. Call light placed in reach. Side rails up x 2. Bed placed in lowest position. Brakesof bed on. Patient ready for evaluation- ED physician notified. --:07/14/19 Whitley Mathews R.N.09:38 07/14/2019 Site #1 started via IV in the left antecubital space with an 20g angiocath, with aseptictechnique and good blood return; one attempt. --09:38 07/14/19 Whitley Mathews RDianna09:30 07/14/19. BP: 126/99. MAP: 108. HR: 85. RR: 25. O2 saturation: 99%. --09:46 07/14/19 [facility], Vqan643:02 07/14/19. school bus monitor, pulse oximeter and NIBP monitor placed on patient; monitor alarms on;see monitor strips. Head of bed elevated (30 per pt). Reassurance given. Reassessment acuity:LEVEL 3. The patient reports no complaints, he is calm and resting quietly and he has had no adversereaction. Overall patient status is improved- he states feels better.RESPIRATORY: No re spiratory distress.CVS: The patient reports chest pain is still present but improving and currently mild in severity (right ribarea). Normal sinus rhythm noted.SKIN: Skin is warm and dry. Two patient identifiers checked. Call light placed in reach. Side rails up x1. Bed placed in lowest position. Brakes of bed on. Care transferred and report received. --10:0907/14/19 David Boles RDianna10:30 07/14/19. BP: 135/85. MAP: 101. HR: 77. RR: 18. O2 saturation: 100%. --10:38 07/14/19 [facility], Vzxi902:02 07/14/19. BP: 135/91. MAP: 105. HR: 79. RR: 15. O2 saturation: 100%. --11:03 07/14/19 [facility], Buho513:01 07/14/19. Reassurance given. Reassessment acuity: LEVEL 3. The patient reports nocomplaints, he is calm and resting quietly and he has had no adverse reaction. Overall patient status isimproved- he states feels better. ( patient noticed to have a limp by dr reis. patient said he hasbruising on his foot. takes Coumadin for mechanical valve. see lab work, not therapeutic. US of legordered.).GENERAL / NEURO / PSYCH: Denies anxiety.RESPIRATORY: No respiratory distress. Breath sounds normal.CVS: Normal sinus rhythm noted.GI / : Denies nausea.SKIN: Skin is warm and dry. Two patient identifiers checked. Call light placed in reach. Side rails up x1. Bed placed in lowest position. Brakes of bed on. Patient ready for evaluation- ED physician notified.--11:06 07/14/19 David Boles R.N.11:14 07/14/19. Patient transported to CT by wheelchair with correctional maintenance technician. --11:14 07/14/19David perry R.N. Correction --11:44 07/14/19 David Boles R.N. 4 Clinical Report - Nurses [facility] Emergency Department [address] [place] [address] Phone #: ext- [phone] 07/14/2019 09:08 [id number]: [facility] : 1975 Age: 43y 11:14 07/14/19. Patient transported to CT and sonogram by wheelchair with correctional maintenance technician. --11:44 07/14/19 David Boles R.N. 11:44 07/14/19. Patient returned from radiology and sonogram by wheelchair with correctional maintenance technician. --11:44 07/14/19 David Boles R.N. 12:03 07/14/19. BP: 129/92. MAP: 104. HR: 85. RR: 19. O2 saturation: 100%. --12:03 07/14/19 Candelaria hoop coiler, Maricarmen Tech1 12:07 07/14/19. Reassurance given. Reassessment acuity: LEVEL 3. The patient reports no complaints, he is calm and resting quietly and he has had no adverse reaction. Overall patient status is improved- he states feels better. RESPIRATORY: No respiratory distress. CVS: Normal sinus rhythm noted. SKIN: Skin is warm and dry. Skin color within normal limits. Two patient identifiers checked. Call light placed in reach. Side rails up x 1. Bed placed in lowest position. Brakes of bed on. --12:08 07/14/19 David Boles R.N. 12:32 07/14/19. BP: 126/94. MAP: 104. HR: 88. RR: 18. O2 saturation: 100%. --12:32 07/14/19 Blaine hoop coiler, [facility] ER Tech1 13:15 07/14/19. BP: 132/91. MAP: 104. HR: 92. RR: 17. O2 saturation: 100%. --13:15 07/14/19 Blaine hoop coiler, [facility] Tech1 13:10 07/14/19. Reassurance given. Reassessment acuity: LEVEL 3. The patient reports no complaints, he is calm and resting quietly and he has had no adverse reaction. Overall patient status is improved- he states feels better. GENERAL / NEURO / PSYCH: Denies anxiety. HEENT: Denies headache. RESPIRATORY: No respiratory distress. CVS: Normal sinus rhythm noted. GI / : Denies nausea. SKIN: Skin is warm and dry. Skin color within normal limits. Two patient identifiers checked. Call light placed in reach. Side rails up x 1. Bed placed in lowest position. Brakes of bed on. --13:25 07/14/19 David Boles RPiper.DISPOSITION / DISCHARGE 14:28 07/14/2019 Site #1 removed upon discharge. Catheter intact. Bandage applied. --14:33 07/14/19 David Boles R.N. 14:29 07/14/19. Departure time: 14:35 07/14/2019. Cardiac rhythm: sinus tachycardia; no ectopy noted (109). Condition at departure: improved and critical. The goals identified in the patient's plan of care were met. Fall risk assessment completed. No risk factors identified. No learning barriers present. Discharge instructions 5 Clinical Report - Nurses [facility] Emergency Department [address] [place] [address] Phone #: ext- [phone] 09:08 Patient: KYLE LOCKE Sex: M : 1975 Age: 43y provided and reviewed with the patient. Reviewed warnings. Reviewed medication(s). Treatments reviewed. Reviewed referral to a primary care physician. Work note given. Patient verbalized understanding. Written instructions provided in Ivorian. The patient was discharged by the physician. He was discharged home and unaccompanied at time of discharge. He left ambulatory and via private vehicle. Patient driving. --14:35 07/14/19 David Boles R.N. 14:27 07/14/19. BP: 123/84. MAP: 97. HR: 109. RR: 16. O2 saturation: 100%. Temp: 97.9 F. Pain level now: 0/10. --14:35 07/14/19 David Boles R.N. 14:36 07/14/19. ( PATIENT DID NOT WANT COPY OF D/C PAPERS.). --14:36 07/14/19 David Boles R.N.Locked/Released at 07/14/2019 14:39 by David Boles R.N. Name Value Range Interpretation Code Description Data Varsha rce(s) Supporting Document(s) ID Date Data Source [id number] 07/14/2019 09:24:00 AM EDT [facility] 1 Clinical Report - Physicians/Mid Levels [facility] Emergency Department [address] [place] [address] Phone #: ext- [phone] 07/14/2019 09:08 Patient: KYLE LOCKE Sex: M : 1975 Age: 43y Time Seen; initial patient contact, initial documentation. Arrived- By private vehicle. Historian- patient. Disposition decision: 14:24 07/14/2019.HISTORY OF PRESENT ILLNESS Chief Complaint: CHEST PAIN. 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 It is described as pressure, tightness, aching, "pain" and well localized and it is described as located in the right chest area. No radiation. This started yesterday Pain is only a 1 or a 2 out of 10 and at R lateral chest and is still present. It was abrupt in onset and has been waxing/waning. Onset during yesterday. At its maximum, severity described as 3 / 10. When seen in the E.D., it was almost gone and severity described as 2 / 10. Modifying factors- worsened by exertion and movement. No nausea, vomiting, difficulty breathing or diaphoresis. Similar symptoms previously. (since ). Recent medical care: The patient was seen recently at another facility in the office.REVIEW OF SYSTEMSNo fever, chills, cough, pedal edema or calf pain. No fainting episodes, headache, sore throat, blurredvision or abdominal pain. No black stools, difficulty with urination, skin rash, enlarged lymph nodes or jointpain. No bloody stools.PAST HISTORYPast history not negative. See nurses notes. Heart disease. Aortic disease. Other disease. Marfan'sdzTAA / Aortic dz / Aortic dissectionPulmonary embolismGERDChest painAnticoagulation. Surgeries: Valve replacement (Aortic - Artificial). (Cardiac procedures).SOCIAL HISTORYFormer smoker. Occasional alcohol use. No drug use.ADDITIONAL NOTESThe nursing notes have been reviewed with agreement regarding the chief complaint, HPI, ROS, PMH andpatient medications and allergies.PHYSICAL EXAMVital Signs: 07/14/2019 09:10 BP: 132/88. MAP: 102. HR: 88. RR: 18. O2 saturation: 99% on room air. 2 Clinical Report - Physicians/Mid Levels [facility] Emergency Department [address] [place] [address] Phone #: ext- [phone] 07/14/2019 09:08 Patient: KYLE LOCKE [facility]#: [id number] Sex: M : 1975 Age: 43y Temp: 97.8 F. Pain level now: 05/03. Have been reviewed and appear to be correct. Blood pressure normal. Heart rate normal. Respiratory rate normal. Temperature normal. Oxygen saturation normal. Appearance: Alert. Oriented X3. Anxious. Patient in moderate distress. In distress. Eyes: Pupils equal, round and reactive to light. Eyes inspection not normal. Pale conjunctivae. ENT: Nose normal. Pharynx normal. Neck: Normal inspection. Neck supple. CVS: Normal heart rate and rhythm. Heart sounds abnormal. 5/6 mid systolic ejection click (Mechanical valve click). Pulses normal. Respiratory: No respiratory distress. Painless inspiration. Breath sounds normal. Chest nontender. Abdomen: Soft and nontender. Bowel sounds normal. No organomegaly. No mass. Back: Normal external inspection. Skin: Skin warm and dry. Abnormal skin color. Rash present. Normal skin turgor. Pallor. (Small area of ecchymotic (petechial) discoloration on lat eral aspect of L foot and 4th / 5th toes.). Extremities: Extremities exhibit normal ROM. No lower extremity edema. Neuro: Oriented X 3. No motor deficit. No sensory deficit.LABS, X-RAYS, AND EKGLaboratory Tests: Laboratory tests have been ordered, with results reviewed and considered in themedical decision making process. Troponin-T: (BRIAN: 07/14/2019 13:23) ( MsgRcvd 07/14/2019 14:21) Final results Test Result Flag Units (Reference) TROPONIN T 0.01 NG/ML (0.00 - 0.10) TROPONIN T0.1 ng/ml Recommended as the clinical threshold value forTroponin T. US Lower Ext Venous Bilateral: (BRIAN: 07/14/2019 11:00) ( MsgRcvd 07/14/2019 12:29) In Progress US DOPPLER VENOUS BILAT LEG Reason(s): Discolored Extremity TRANSPORTATION: IV? O2? Oxygen?(No) Room: ED CMTS: Marfan's / Mechanical aortic valve Exam US DOPPLER VENOUS [place] [address] PHONE: [phone] FAX: [phone] Name .................. : BARBARA Platt Acct Number.................. : [id number] ROOM. ................. : TR-03 MR Number ................... : [id number] Stay type ............. : E/R Discharge Date......... ... : Admit Date ......... : 07/14/19 Admit Phys .................... : GRISELDA FOY Date of ....... : 1975 Family Phys ................... : UNKNOWN Phone .................. : [phone] Age ................................ : 43 Film# .................. .: Sex ................................. : M Unsigned transcriptions are preliminary reports and do not represent a medical or legal document DOPPLER VENOUS BILAT LEG [id number] COMPLETE:07/14/19 11:26 HGL [id number] Reason(s): Discolored Extremity Lower Ext Pain/Immobility BILATERAL LOWER EXTREMITY DUPLEX ULTRASOUND: INDICATI ON: Discolored extremity. 3 Clinical Report - Physicians/Mid Levels [facility] Emergency Department [address] [place] [address] Phone #: ext- [phone] 07/14/2019 09:08 Patient: KYLE LOCKE Sex: M : 1975 Age: 43y FINDINGS: Normal compressibility is demonstrated at bilateral common femoral, superficial femoral and popliteal veins without internal defects to suggest DVT. Normal color and spectral Doppler is demonstrated with augmentation. IMPRESSION: No DVT in bilateral common femoral veins to the popliteal veins. Electronically Reviewed and Signed By DCTNAME , SIGNDATE, MIKAEL Transcribe Initials: WILL , Transcribe Date: 07/14/19 12:27, Dictation Date: <<REPDIST>> Page 1 of 1CT CTA CHEST NON- CORONARY W PagerDuty PP: (BRIAN: 07/14/2019 10:33) ( MsgRcvd 07/14/2019 18:53) InProgress Test Result Flag Units (Reference) CT CTA CHEST NON-CORON[place] [address] PHONE: [phone] FAX: [phone] -- Name .................. : BARBARA Platt Acct Number.................. : [id number] ROOM. ................. : TR-03 MR Number ................... : [id number] Stay type ............. : E/R Discharge Date......... ... : Admit Date ......... : 07/14/19 Admit Phys .................... : GRISELDA FOY Date of ....... : 1975 Family Phys ................... : UNKNOWN Phone .................. : [phone] Age ................................ : 43 Film# .................. .:[id number] Sex ................................. : M -- Unsigned transcriptions are preliminary reports and do not represent a medical or legal document CT CTA CHEST NON-CORONARY W C [id number] COMPLETE:07/14/19 10:33 [id number] Reason(s): Chest pain / Hx of P.E. / Hx of Marfans -- -- -- -- CTA OF THE CHEST WITH CONTRAST: -- INDICATION: Chest pain. History of pulmonary embolism. History of Marfans disease. -- -- FINDINGS: The neck base is clear. The lungs demonstrate trace dependent atelectasis. No focal infiltrate. The heart is normal in size. There is evidence of prior cardiac surgery. An aortic valve replacement is noted. -- There is no evidence of pulmonary embolism. -- No lymphadenopathy. -- The visualized upper abdomen is normal. No acute osseous abnormality. No evidence of thoracic aortic dissection. -- -- IMPRESSION: No evidence of pulmonary embolism or aortic dissection. -- No acute pulmonary process. -- 4 Clinical Report - Physicians/Mid Levels [facility] Emergency Department [address] [place] [address] Phone #: ext- [phone] 07/14/2019 09:08 Patient: KYLE LOCKE Sex: M : 1975 Age: 43y While performing the above CT examination, radiation dose reduction was accomplished utilizing automated exposure control, adjusting of the mA and kV based on the patient's body size and/or the use of imperative reconstructive techniques. -- CT dose: 597.5 mGycm -- Contrast agent in mL: 75 Isovue 370 -- Method of administration: Intravenous -- -- -- Page 1of 2 [facility] [address] [place] [address] PHONE: [phone] FAX: [phone] -- Name .................. : BARBARA Platt Acct Number.................. : [id number] ROOM. ................. : TR-03 MR Number ................... : Stay type ............. : E/R Discharge Date......... ... : Admit Date ......... : 07/14/19 Admit Phys .................... : GRISELDA FOY Date of ....... : 1975 Family Phys ................... : UNKNOWN Phone .................. : [phone] Age ................... ............. : 43 Film# .................. .: Sex ................................. : M -- Unsigned transcriptions are preliminary reports and do not represent a medical or legal document CT CTA CHEST NON-CORONARY Nilsa Schulz [id number] COMPLETE:07/14/19 10:33 [id number] Reason(s): Chest pain / Hx of P.E. / Hx of Marfans -- -- -- Electronically Reviewed and Signed By DCTNAME , SIGNDATEMIKAEL -- Transcribe Initials: WILL , Transcribe Date: 07/14/19 12:24, Dictation Date: -- -- <<REPDIST>> -- -- -- -- Page 2of 2 --Urinalysis: (BRIAN: 07/14/2019 09:55) ( [facility] 07/14/2019 10:16) Final results Test Result Flag Units (Reference) URINALYSIS URINALYSIS SOURCE Clean Catch COLOR yellow (NORMAL: Yello CLARITY clear (NORMAL: Clear SPEC GRAVITY 1.015 (1.001 - 1.030 pH 7 (5 - 9) GLUCOSE NORM (NORMAL: Negat BILIRUBIN NEG (NORMAL: Negat KETONE NEG (NORMAL: Negat PROTEIN NEG (NORMAL: Negat NITRITE NEG (NORMAL: Negat BLOOD NEG (NORMAL: Negat LEUK EST NEG (NORMAL: Negat UROBILINOGEN NOR (less than 1.0 MICROSCOPIC Not IndicateTroponin-T: (BRIAN: 07/14/2019 09:47) ( [facility] 07/14/2019 10:27) Final results 5 Clinical Report - Physicians/Mid Levels [facility] Emergency Department [address] [place] [address] Phone #: ext- [phone] 07/14/2019 09:08 Patient: KYLE OLCKE Sex: M : 1975 Age: 43y Test Result Flag Units (Reference) TROPONIN T 0.01 NG/ML (0.00 - 0.10) TROPONIN T0.1 ng/ml Recommended as the clinical threshold value forTroponin T.D-Dimer: (BRIAN: 07/14/2019 09:47) ( MsgRcvd 07/14/2019 10:16) Final results Test Result Flag Units (Reference) D-DIMER QUANT 0.49 ug/mL (0.27 - 0.50)CMP: (BRIAN: 07/14/2019 09:47) ( MsgRcvd 07/14/2019 10:31) Final results Test Result Flag Units (Reference) COMPREHENSIVE METABOLIC PANEL COMPREHENSIVE METABOLIC PANEL SODIUM 141 mEq/L (134 - 153) POTASSIUM 4.3 mEq/L (3.6 - 5.0) CHLORIDE 102 mEq/L (98 - 107) CO2 30 MEQ/L (22 - 30) GLUCOSE 98 MG/DL (65 - 110) BUN 11 MG/DL (7 - 21) CREATININE 0.9 MG/DL (0.7 - 1.5) BUN/CREAT 12 (8 - 27) TOTAL PROTEIN 6.2 L G/DL (6.3 - 8.2) ALBUMIN 4.6 G/DL (3.9 - 5.0) GLOBULIN 1.6 L GM/DL (2.4 - 3.2) A/G RATIO 2.9 H (0.8 - 2.0) CALCIUM 9.1 MG/DL (8.4 - 10.2) TOTAL BILI <0.7 MG/DL (0.2 - 1.3) ALKALINE PHOS 92 U/L (38 - 126) SGOT/AST 20 U/L (5 - 40) SGPT/ALT 14 U/L (7 - 56) ANION GAP 9.0 mmol/L (8.0 - 16.0) AGE 43 yrs NON-AA GFR >60 mL/min AFR AMER GFR >60 mL/min Male GFR Interprentation 20-49 yrs >60 mL/min Rxyuia29-30 yrs >56 mL/min Normal 60-69 yrs >49 mL/min Normal 70-79yrs>42 mL/min Normal 80 and above >35 mL/min Normal Female GFRInterpretation 20-39 yrs >60 mL/min Normal 40-49 yrs >58 mL/minNormal 50-59 yrs >51 mL/min Normal 60-69 yrs >45 mL/min Kzsxnx60-98 yrs >39 mL/min Normal 80 and above >32 mL/min NormalCPK: (BRIAN: 07/14/2019 09:47) ( OrgRcvd 07/14/2019 10:31) Final results Test Result Flag Units (Reference) CPK 143 U/L (30 - 1 70)CBC w Diff: (BRIAN: 07/14/2019 09:47) ( [facility] 07/14/2019 10:02) Final results Test Result Flag Units (Reference) CBC W/AUTOMATED DIFF COMPLETE BLOOD COUNT WBC 3.5 L 10/uL (4.2 - 11.0) RBC 5.14 10/uL (4.50 - 6.30) HEMOGLOBIN 14.5 g/dL (14.0 - 16.0) HEMATOCRIT 42.9 % (41.0 - 51.0) MCV 83.5 fL (80.0 - 94.0) MCH 28.2 pg (27.0 - 34.0) MCHC 33.8 g/dL (31.0 - 36.0) RDW 13.0 % (11.5 - 14.8) PLATELETS 160 10/uL (150 - 450) MPV 10.3 fL (7.4 - 10.4) NEUT 73.7 % (37.0 - 80.0) LYMPH 20.5 L % (25.0 - 40.0) MONO 4.3 % (3.0 - 8.0) 6 Clinical Report - Physicians/Mid Levels [facility] Emergency Department [address] [place] [address] Phone #: ext- [phone] 07/14/2019 09:08 [id number] Sex[facility] : 1975 Age: 43y EOS 0.6 % (0.0 - 7.0) BASO 0.6 % (0.0 - 2.0) %IG 0.3 H % (0.0 - 0.0) %NRBC 0.0 % (0.0 - 0.0) #NEUT 2.60 10/uL (2.00 - 6.90) #LYMPH 0.72 10/uL (0.60 - 3.40) #MONO 0.15 10/uL (0.00 - 0.90) #EOS 0.02 10/uL (0.00 - 0.70) #BASO 0.02 10/uL (0.00 - 0.20) #IG 0.01 10/uL (0.00 - 0.10) #NRBC 0.00 10/uL (0.00 - 0.00) MANUAL DIFF NOT INDICATED RBC MORPH NOT INDICATED PTT: (BRIAN: 07/14/2019 09:47) ( [facility] 07/14/2019 10:16) Final results Test Result Flag Units (Reference) PTT 39.5 H SECONDS (24.8 - 36.7) PT/INR: (BRIAN: 07/14/2019 09:47) ( [facility] 07/14/2019 10:16) Final results Test Result Flag Units (Reference) PROTIME 24.0 H SECONDS (11.0 - 15.5) INR 2.12 H (0.93 - 1.23) \\BLDo\\INR INTERPRETATION\\BLDx\\ Therapeutic range for Coumadin and related oral anticoagulants. - International Normalized Ratio (INR): 2.0 - 3.0 for Venous Thrombosis, Pulmonary Embolus, Tissue heart valves, Acute NH, Atrial Fibrillation, Valvular heart disease and recurrent Systemic Embolism. - International Normalized Ratio (INR): 2.5 - 3.5 for Mechanical Prosthetic valve. EKG: (BRIAN: 07/14/2019 09:29) ( [facility] 07/15/2019 06:21) In Progress . Note - Tests: (EKG - NSR, poss. LAE, old septal infarct. CTA chest - No P.E. or Thoracic dissection. LE ultrasound - No DVTs).PROGRESS AND PROCEDURESCourse of Care: 13:51 Jul 14 2019. Patient is stable. Symptoms better. 13:51 Jul 14 2019. Symptoms gone and both LE ultrasound and CTA chest are unremarkable. Initial troponin was negative and await a repeat troponin test now. Since INR only 2.12, I have told him to double up his dose of Coumadin tonight and speak to prescriber of Coumadin soon as to long-term changes to increase INR. 14:23 Jul 14 2019. Repeat troponin is negative. Pt. is asymptoamtic. Pt. will be discharged home. Critical care performed (130 minutes). Time is exclusive of separately billable procedures. Time includes: direct patient care, patient reassessment, interpretation of data (laboratory data and pulse oximetry), review of patient's medical records and documentation of patient care- see progress notes. Procedures included in critical care time: peripheral IV placement and phlebotomy- see progress notes. Disposition: Discharged home in good and improved condition (14:24 Jul 14 2019). Condition: good. 7 Clinical Report - Physicians/Mid Levels [facility] Emergency Department [address] [place] [address] Phone #: ext- [phone] 07/14/2019 09:08 Patient: KYLE LOCKE Sex: M : 1975 Age: 43yCLINICAL IMPRESSION Chest pain characterized as "discomfort", "pressure" and "tightness"(R sided symptoms). Oral anticoagulation therapy with subtherapeutic INR.INSTRUCTIONS Do not work today, tomorrow. Avoid stimulants (such as cigarettes, coffee, cold medicines, sinus medicines, street drugs). (Need to increase INR by increasing Coumadin dose. Talk to provider.). Warnings: Further evaluation is necessary. GENERAL WARNINGS: Return or contact your physician immediately if your condition worsens or changes unexpectedly, if not improving as expected, or if other problems arise. Follow-up: Follow up with your doctor. Call for the next available appointment. Reason for referral: evaluation, treatment and Chest pain / Inadequate anticoagulation. Understanding of the discharge instructions verbalized by patient.(Electronically signed by Ayo Reis, Physician 07/15/2019 09:10) Name Value Range Interpretation Code Description Data Varsha rce(s) Supporting Document(s) ID Date Data Source [id number] 07/14/2019 02:21:00 PM EDT [facility] Name Value Range Interpretation Code Description Data Varsha rce(s) Supporting Document(s) TROPONIN T 0.01 NG/ML 0.00 - 0.10 [facility] TROPONIN T0.1 ng/ml Recommended as the c linical threshold value forTroponin T. ID Date Data Source [id number] 07/14/2019 10:16:00 AM EDT [facility] Name Value Range Interpretation Code Description Data [facility] rce(s) Supporting Document(s) URINALYSIS [facility] URINALYSIS SOURCE Clean Catch [facility] ital COLOR yellow NORMAL: Yellow [facility] CLARITY clear NORMAL: Clear [facility] Specific gravity of Urine by Test strip 1.015 1.001 - 1.030 [facility] pH 7 5 - 9 [facility] Glucose [Mass/volume] in Urine by Test strip NORM NORMAL: Negat [facility] Bilirubin.total [Presence] in Urine by Test strip NEG NORMAL: Negative [facility] [facility] Ketones [Presence] in Urine by Test strip NEG NORMAL: Negative [facility] Protein [Mass/volume] in Urine by Test strip NEG NORMAL: Negat [facility] Nitrite [Presence] in Urine by Test strip NEG NORMAL: Negative [facility] BLOOD NEG NORMAL: Negative [facility] Leukocyte esterase [Presence] in Urine by Test strip NEG AMELIE L: Negative [facility] Urobilinogen [Mass/volume] in Urine by Test strip NOR less kory n 1.0 mg/dL [facility] MICROSCOPIC Not Indicate [facility] ID Date Data Source [id number] 07/14/2019 10:31:00 AM EDT [facility] Name Value Range Interpretation Code Description Data Varsha rce(s) Supporting Document(s) Creatine kinase [Enzymatic activity/volume] in Serum or Plasma 1 43 U/L 30 - 170 [facility] ID Date Data Source [id number] 07/14/2019 10:31:00 AM EDT [facility] Name Value Range Interpretation Code Description Data Varsha rce(s) Supporting Document(s) COMPREHENSIVE METABOLIC PANEL [facility] COMPREHENSIVE METABOLIC PANEL Sodium [Moles/volume] in Serum or Plasma 141 mEq/L 134 - 153 [facility] Potassium [Moles/volume] in Serum or Plasma 4.3 mEq/L 3.6 - 5.0 [facility] Chloride [Moles/volume] in Serum or Plasma 102 mEq/L 98 - 107 [facility] Carbon dioxide, total [Moles/volume] in Serum or Plasma 30 MEQ/L 22 - 30 [facility] Glucose [Mass/volume] in Serum or Plasma 98 MG/DL 65 - 110 [facility] BUN 11 [facility]/DL 7 - [facility] Creat[facility] [Mass/volume] in Serum or Plasma 0.9 MG/DL 0.7 - 1.5 [facility] BUN/CREAT 12 8 - 27 [facility] Protein [Mass/volume] in Serum or Plasma 6.2 G/DL 6.3 - 8.2 L [facility] Albumin [Mass/volume] in Serum or Plasma 4.6 G/DL 3.9 - 5.0 [facility] Globulin [Mass/volume] in Serum by calculation 1.6 GM/DL 2.4 - 3.2 L [facility] A/G RATIO 2.9 0.8 - 2.0 H [facility] Calcium [Mass/volume] in Serum or Plasma 9.1 MG/DL 8.4 - 10.2 [facility] Bilirubin.total [Mass/volume] in Serum or Plasma <0.7 MG/DL 0.2 - 1.3 [facility] Alkaline phosphatase [Enzymatic activity/volume] in Serum or Plasma 92 U/L 38 - 126 [facility] Aspartate aminotransferase [Enzymatic activity/volume] in Serum or Plasma 20 U/L 5 - 40 [facility] Alanine aminotransferase [Enzymatic activity/volume] in Seru m or Plasma 14 U/L 7 - 56 [facility] Anion gap 3 in Serum or Plasma 9.0 mmol/L 8.0 - 16.0 [facility] AGE 43 yrs [facility] NON-AA GFR >60 mL/min [facility] AFR AMER GFR >60 mL/min [facility] spital Male GFR In terprentation 20-49 yrs >60 mL/min Normal 50-59 yrs >56 mL/min Normal 60-69 yrs >49 mL/min Normal 70-79yrs >42 mL/min Normal 80 and above >35 mL/min Normal Female GFR Interpretation 20-39 yrs >60 mL/min Normal 40-49 yrs >58 mL/min Normal 50-59 yrs >51 mL/min Normal 60-69 yrs >45 mL/min Normal 70-79 yrs >39 mL/min Normal 80 and above >32 mL/min Normal ID Date Data Source [id number] 07/14/2019 10:27:00 AM EDT [facility] Name Value Range Interpretation Code Description Data Varsha rce(s) Supporting Document(s) TROPONIN T 0.01 NG/ML 0.00 - 0.10 [facility] spital TROPONIN T0.1 ng/ml Recommended as the c linical threshold value forTroponin T. ID Date Data Source [id number] 07/14/2019 10:16:00 AM EDT [facility] Value Range Interpretation Code Description Data Varsha rce(s) Supporting Document(s) Fibrin D-dimer FEU [Mass/volume] in Platelet poor plasma 0.49 ug /mL 0.27 - 0.50 [facility] ID Date Data Source [id number] 07/14/2019 10:16:00 AM EDT [facility] Value Range Interpretation Code Description Data Varsha rce(s) Supporting Document(s) aPTT in Blood by Coagulation assay 39.5 SECONDS 24.8 - 36.7 H [facility] ID Date Data Source [id number] 07/14/2019 10:15:00 AM EDT [facility] Value Range Interpretation Code Description Data Varsha rce(s) Supporting Document(s) Prothrombin time (PT) 24.0 SECONDS 11.0 - 15.5 H [facility] INR in Platelet poor plasma by Coagulation assay 2.12 0.93 - 1. 23 H [facility] \\BLDo\\INR INTERPRETATION\\BLDx\\ Therapeutic range for Coumadin and related oral anticoagulants. - International Normalized Ratio (INR): 2.0 - 3.0 for Venous Thrombosis, Pulmonary Embolus, Tissue heart valves, Acute NH, Atrial Fibrillation, Valvular heart disease and recurrent Systemic Embolism. -International Normalized Ratio (INR): 2.5 - 3.5 for Mechanical Prosthetic valve. ID Date Data Source [id number] 07/14/2019 10:02:00 AM EDT [facility] Name Value Range Interpretation Code Description Data [facility](s) Supporting Document(s) CBC W/AUTOMATED DIFF [facility] COMPLETE BLOOD COUNT Leukocytes [#/volume] in Blood by Automated count 3.5 10^3/uL 4.2 - 1 1.0 L [facility] Erythrocytes [#/volume] in Blood by Automated count 5.14 10^6/uL 4. 50 - 6.30 [facility] Hemoglobin [Mass/volume] in Blood 14.5 g/dL 14.0 - 16.0 [facility] Hematocrit [Volume Fraction] of Blood by Automated count 42.9 % 4 1.0 - 51.0 [facility] Erythrocyte mean corpuscular volume [Entitic volume] by Auto mated count 83.5 fL 80.0 - 94.0 [facility] Erythrocyte mean corpuscular hemoglobin [Entitic mass] by Automated count 28.2 pg 27.0 - 34.0 [facility] Erythrocyte mean corpuscular hemoglobin concentration [Mass/volume] by Automated count 33.8 g/dL 31.0 - 36.0 [facility] Erythrocyte distribution width [Ratio] by Automated count 13.0 % 11.5 - 14.8 [facility] Platelets [#/volume] in Blood by Automated count 160 10^3/uL 150 - 45 0 [facility] Platelet mean volume [Entitic volume] in Blood by Automated count 10.3 fL 7.4 - 10.4 [facility] Neutrophils/100 leukocytes in Blood by Automated count 73.7 % 37. 0 - 80.0 [facility] Lymphocytes/100 leukocytes in Blood by Manual count 20.5 % 25.0 - 40.0 L [facility] Monocytes/100 leukocytes in Blood by Automated count 4.3 % 3.0 - 8.0 [facility] Eosinophils/100 leukocytes in Blood by Automated count 0.6 % 0.0 - 7.0 [facility] Basophils/100 leukocytes in Blood by Automated count 0.6 % 0.0 - 2.0 [facility] %IG 0.3 % 0.0 - 0.0 H [facility] %NRBC 0.0 % 0.0 - 0.0 [facility] Neutrophils [#/volume] in Blood by Automated count 2.60 10^3/uL 2.00 - 6.90 [facility] Lymphocytes [#/volume] in Blood by Automated count 0.72 10^3/uL 0.60 - 3.40 [facility] Monocytes [#/volume] in Blood by Automated count 0.15 10^3/uL 0.00 - 0.90 [facility] Eosinophils [#/volume] in Blood by Automated count 0.02 10^3/uL 0.00 - 0.70 [facility] Basophils [#/volume] in Blood by Automated count 0.02 10^3/uL 0.00 - 0.20 [facility] #IG 0.01 10^3/uL 0.00 - 0.10 [facility] #NRBC 0.00 10^3/uL 0.00 - 0.00 [facility] MANUAL DIFF NOT INDICATED [facility] RBC MORPH NOT INDICATED [facility] ID Date Data Source [id number] 06/21/2019 10:08:23 AM EST [facility] Name Value Range Interpretation Code Description Data Varsha rce(s) Supporting Document(s) Progress Note [facility] IULBAx4xCrLIHuWs76/UDCxdAPVrh3HwUOzbPXx0TQsqFRQfL1RsEEL6eQ7cENO5ECbVMdNiMmAmBqO6 [facility] [file] Anny+6rJRsbYL5rxrnsuEtR4jdXnDjw5sAGGjG5gsz5DHUP6Ll/LdMM5FohM1ub4R2finTJrosVgGjOra jcOB844r8G8BlfEoMbse2e63cDVQtXnoMOvVJHlC1CypMvhJ7qPeukSKvPh8cVLEwm/3A8bykZsSCVwj P69HS/tdgIoJGqbzn1N8Vh5vIOcGH1qTxtErfI4PGD vvQjHpWvD5IDiuTFWXs/ZNemu/Ej3MevL9WyB9f/BlDBayKd1DLst/XbVBeUpOnEzA6YiqUVqfa5XYq9 PkqEkPArL7DicB/PXD0MW+GGMH4/EcFdNNpzDxMUE2k/30ZiBgnHrrJptyfaQzYFsA1ePS4f2599+i2s 3T7eQopWq91tE4brbZYrZf9nuucAYSk9qD7yROUoRy G+QrUbi+92Slqolz8DNIxB4dfeDD+D5rAXr/RBtxyfUz+kCCliN1SrMNfG987sNVgf3hJEFyaYT3kaVe 2ojAvkWQpVc3b18FcnJDvB2qf2hk1TfjumVklHgHUmXXI4NhvnLI/4ABu5ftsycDjmCtM6KGHaHiNdBp 7HOiKZ66dX9kKaZoAXYnJlpM5Wq0NgD6v6O4+Mg/glass smoother [file] WX0hWIn+La8Na6PiwcD3toMjEZemDYD5TB4ASVUKR3ENXu== ID Date Data Source [id number] 06/03/2019 11:42:59 AM [facility] Name Value Range Interpretation Code Description Data Varsha rce(s) Supporting Document(s) Progress Note [facility] OUGMMc9dRoBDPfHm81/BEGhbEYKvz5LwONhzLEs7JEexYBFqB5UmEFK9xZ9bYHG9NXwPAgDyDnHvFuDx lbm [file] RtZxTX8OTu7ICrG6PLF8pSBkUx6DOdR5ByOGVdNaCP1ETAo= ID Date Data Source [id number] 05/19/2019 10:21:38 AM EST [facility] Name Value Range Interpretation Code Description Data Varsha rce(s) Supporting Document(s) Discharge Summary [facility] OLKBQe2tWvJGPaMa72/QMTfkNQBeu0RdSIxmFAa8RObmEYGcQ8FzWAL4hU9vMHN3YYeRSvHyQlAnDOI8 lbm GiUxoDGvDoTNWgNexTOeIhXDurLrindOAjZM3HjZZ8CKMyF02wRRLiZOSsD4WwGUI5HFS+Ew5VAKSmjP CgJZ9IJcrZ2B4Dh9tLLt2mln8RB0YIIZrkMbjc0DsoMR6RuqNvc1WDbjTLMKWRAU7MYsC/my49gOfOeM r7zJDz9FUq4WSxWVKq80j11TFXpws/iqMOOyI7gcf/ 3y7M8qvwXX18A4hgtLWxHJswqJL0zZRdBouvcN51+ssbnl+iij1gkAWEA4sPoVeRx343nmihrnm0sNBf Ly5Xi/mT6Xfsgpqwcxmp78L94++HC0ac0qmgjf4lLhwaoqiCE/Xve55T3xZib3U3bfZBju19SEPyrcdW ZbRVmkzLxjHso5GAPeXPfkbmVQ5fF7TwOcr4LEY9NQ T2SwedVCRrdU6TeBc32HsHtdMGdT35R4ii0r0AV/Wx0c9Y83T+MsqomVK9HZ4+rA2KpbgkrqjL8EJK+U JqiDX9v3xRUZmO67XLXQ1n/BkJGgvjSjO3vrp6qXM00qty7Av/pn/QTvmzVdB4T5iYFni7vsuxQI+mcv jZEUX2GXgbR5QrIMkEQcYM44nU+mlhXo0JGMPD+ngy UcOlZEt77B6kjDqkv8TuYxuUz2Sn7+JkjMz+PYLYnIRiuurLsb2Letba8Hce+DMhFD3B609y/SIZc1GS QxE25Y0yCFWn3hL/ZuJ6oSrxRfmoARsLMXdtUKLdHd4uA8zS9MkB4GDfY3z+BrmxlijyngVB/CyIHTdL i52jNxralrXK9V2QwZ0gRC2wD3OXXMEmMcEOuB/Dino rSrgikns01jTuYfdi7IKKq/7WVQwPAt1QGTD+YjzkPanr0moOe0qHL3ZKPhmcaxAgmrJd2sLUCoH/Jemal [file] AgICAgICAgICAgICAgICAgICAgICAgICAgICAgICAgICAgICAgICAgICAgICAgICAgICAgICANCiAgIC AgICAgICAgICAgICAgICAgICAgICAgICAgICAgICAg ICAgICAgICAgICAgICAgICAgICAgICAgICAgICAgICAgICAgICAgICAgICAgICAgICAgICAgICAgICAg ICAgICANCiAgICAgICAgICAgICAgICAgICAgICAgICAgICAgICAgICAgICAgICAgICAgICAgICAgICAg ICAgICAgICAgICAgICAgICAgICAgICAgICAgICAgIC AgICAgICAgICAgICAgICANCiAgICAgICAgICAgICAgICAgICAgICAgICAgICAgICAgICAgICAgICAgIC AgICAgICAgICAgICAgICAgICAgICAgICAgICAgICAgICAgICAgICAgICAgICAgICAgICAgICAgICANCi AgICAgICAgICAgICAgICAgICAgICAgICAgICAgICAg ICAgICAgICAgICAgICAgICAgICAgICAgICAgICAgICAgICAgICAgICAgICAgICAgICAgICAgICAgICAg ICAgICAgICANCiAgICAgICAgICAgICAgICAgICAgICAgICAgICAgICAgICAgICAgICAgICAgICAgICAg ICAgICAgICAgICAgICAgICAgICAgICAgICAgICAgIC AgICAgICAgICAgICAgICAgICANCiAgICAgICAgICAgICAgICAgICAgICAgICAgICAgICAgICAgICAgIC AgICAgICAgICAgICAgICAgICAgICAgICAgICAgICAgICAgICAgICAgICAgICAgICAgICAgICAgICAgIC ANCiAgICAgICAgICAgICAgICAgICAgICAgICAgICAg ICAgICAgICAgICAgICAgICAgICAgICAgICAgICAgICAgICAgICAgICAgICAgICAgICAgICAgICAgICAg ICAgICAgICAgICANCiAgICAgICAgICAgICAgICAgICAgICAgICAgICAgICAgICAgICAgICAgICAgICAg ICAgICAgICAgICAgICAgICAgICAgICAgICAgICAgIC AgICAgICAgICAgICAgICAgICAgICANCiAgICAgICAgICAgICAgICAgICAgICAgICAgICAgICAgICAgIC AgICAgICAgICAgICAgICAgICAgICAgICAgICAgICAgICAgICAgICAgICAgICAgICAgICAgICAgICAgIC AgICANCjw/oAHgG6hpxLOrerW2G7uiFl7QSr8UMA2e n1FgNEIdNXtzlpHpHkwPDzHzEOHxHkcEVxx1NLbfBY0MpMYqI6XjU2AyRIuuUV1FXGLoFJAalEKiVXSy BLXjPaY1FASaJBkfWE8BpARzKAeeVQSkMZDaEsKxKTMzOJVnNLVeNJEiGSGIMNZgZBUnEsFpMVfrPH7W z8HplVI4YFb+La0VVF7ro7LsCPgdIGDbRY2uql8KRP hGIsGcO2TkzwF4UHP8MPUaQc5GQBGaEBTlaLKmOSHuKHJTHdVdH4VjyW91DNUHLj4+DQplbmRvYmoNCj J1LDDmd6LbPLy9LP4TRRBsVZa1nRNlGUfuO7vwpvufUTY0jE3lwjdvGtunDOM0kqLkIETwUMU3fU9dQU FMOVTydAGzSwJ5RuWjFtKqBQV0PZjgRH3jKXszNM8Z KXU7YJooSRNcPYNmV9yRNzYvYTMtYPLdyDfdAK3NXgIjX1JnpdPiyKIsUYAsNJIGCn1+DQplbmRvYmoN YuTnAUNoo9EaICr7BA7SHMJhQCphZA6GLOSifJ7pBRewGC3BXeZmZxFxUQYALqUwL72mxJQnRIa1M4Li YmVkZGVkRmlsZXMgPDwvTmFtZXMgWyBdDQogID4+ID 4+RMuuZT4NBJtgqtGyQOYoEn4HLBYiSKKbSX6qVPEhRIMcI9P2mWvtUZFDGgOmJ7stzxhmRL0dTYJlV6 35lFeeytBlFGO2YCXdVf2OBGOuFCQ9BUXgsYNdNxnaOGFJEYkqYP5LeAAnZID0vO6cHOecQLByWDVtP6 kXDkYmjVgeAW55qSjojdTryBLuUMz+Ih9LWZ9jo3Wc YQp0wbHxODlqHFVuABngMWUcQVRqEMQfBVJ1QOE4KJQJLoSjWSEqHMFbZSogTLWlWRWqil6XCMSoLKDh ODM1PbIrSLQoKRFdPNaxBMYtMSIuIYE3FYPsEJJeNZ6IVqQeALPaUYWsQEztJZKiZMNpof5IADZaIICt RBW9PWBaRJZsICYsLBmsXHZgABR3Cdn0XUOhEDNgPZ 5KTcOePALjXMa7JnogIYIbUWNeqs1BRSSuFYFjZKYdVUMgTODjBUKqREaiZZKwRPPdRPH0THKvKXKuCA 1GQdGuWDKoSNA2XcAgIWQqZZRubb7WAOFeSOStTQQkVuYpBDTqSVTsDKezZXRyEAS8LFD3AINlMFWeLB 2IDzQzDRHlKHC3HaZbKZJtXRBdcp4XTQSlGKRuGAq4 PWMwZIWaKRUmIEtzNFHqGOP4QETtKNBjBZUzUP5PNtQsMFCmLXknRybsXORrEBGycm9YBVVbRWQhMkFj XEViZCNnVVKpYUwxNULqDBZ8UTa7SHJhTHMuLE4KJkSoVCWbMLymGQHrMUSkGXUioa7ZROTqNHKcXUR3 LFSzGHJySQSeNMofLXZwUVK0OSW9GLUxGRHdBM7EVv KdNVNsRJh8XiMrHALnIAGrqx1KDGTsTNRbOGhfUUHwBDMmSUTaPPohBOUdGVVdJLZ5CQZuHPYrRJ9EXw VyRLImIyXsRvXhTNCsAWLehg4CGGWqVYPyRQL1CiZwMDPsEWQgKFwzNWLkJTPbXpC5JYRfJHCtNR4GNm QiIMLgCeKdBtzaWTSaDLMsxg8GBRTzMZJjEfWjPEBc PAEzQDWeSDzgSEKvJGNuNunhSXLtFBMqZU7AHhDwNUfvLXKQVna0EIpuE4r7NECcLN3UL7Wut3QkFyZd WXRYRYpiRS6gvgRkKWVnUr9BA9iUJgeqRIO8HfDdDjB6Okj4BYC9JiSgVPRsAVAbExD4FgP0GR5fMUL7 NYx4PLI6SUzeZUMlBfchGwXtOOUbMyAsPeHmSqBqQc GlZQ8WVo3UOjU3UPG9hMVtPa1QMrO7TyZNShYtPM2RZPx= ID Date Data Source [id number] 05/18/2019 06:13:16 AM [facility] Name Value Range Interpretation Code Description Data Varsha rce(s) Supporting Document(s) Leukocytes [#/volume] in Blood by Automated count 6.0 10*3/uL 4-10 [facility] Erythrocytes [#/volume] in Blood by Automated count 4.41 10*6/uL 4.6- 6.1 L [facility] Hemoglobin [Mass/volume] in Blood 12.9 g/dL 13.5-18 L [facility] Hematocrit [Volume Fraction] of Blood by Automated count 37.6 % 4 1-53 L [facility] Erythrocyte mean corpuscular volume [Entitic volume] by Auto mated count 85.3 fL 80-96 [facility] Erythrocyte mean corpuscular hemoglobin [Entitic mass] by Automated count 29.3 pg 27-33 [facility] Erythrocyte mean corpuscular hemoglobin concentration [Mass/volume] by Automated count 34.3 g/dL 32.0-[facility] distribution width [Ratio] by Automated count 13.1 % 11.5-14.5 [facility] Platelets [#/volume] in Blood by Automated count 272 10*3/uL 150-400 [facility] ID Date Data Source [id number] 05/18/2019 06:20:01 AM [facility] Name Value Range Interpretation Code Description Data Varsha rce(s) Supporting Document(s) Prothrombin time (PT) 23.8 s 12.5-14.9 H [facility] INR in Platelet poor plasma by Coagulation assay 2.05 [facility] Routine intensity oral anticoagulation I NR is typically 2.0-3.0. Target INR must be clinically individualized. ID Date Data Source [id number] 05/18/2019 06:20:[address] [facility] Value Range Interpretation Code Description Data Varsha rce(s) Supporting Document(s) aPTT in Platelet poor plasma by Coagulation assay 56.8 s 24.0-34. 0 H [facility] ID Date Data Source [id number] 05/17/2019 07:04:[address] [facility] Value Range Interpretation Code Description Data Varsha rce(s) Supporting Document(s) Leukocytes [#/volume] in Blood by Automated count 6.0 10*3/uL 4-10 [facility] Erythrocytes [#/volume] in Blood by Automated count 4.39 10*6/uL 4.6- 6.1 L [facility] Hemoglobin [Mass/volume] in Blood 13.0 g/dL 13.5-18 L [facility] Hematocrit [Volume Fraction] of Blood by Automated count 37.4 % 4 1-53 L [facility] Erythrocyte mean corpuscular volume [Entitic volume] by Auto mated count 85.2 fL 80-96 [facility] Erythrocyte mean corpuscular hemoglobin [Entitic mass] by Automated count 29.7 pg 27-33 [facility] Erythrocyte mean corpuscular hemoglobin concentration [Mass/volume] by Automated count 34.9 g/dL 32.0-36.0 [facility] distribution width [Ratio] by Automated count 13.3 % 11.5-14.5 [facility] Platelets [#/volume] in Blood by Automated count 285 10*3/uL 150-400 [facility] ID Date Data Source [id number] 05/17/2019 07:10:[address] [facility] Value Range Interpretation Code Description Data Varsha rce(s) Supporting Document(s) Prothrombin time (PT) 20.5 s 12.5-14.9 H [facility] INR in Platelet poor plasma by Coagulation assay 1.69 [facility] Routine intensity oral anticoagulation I NR is typically 2.0-3.0. Target INR must be clinically individualized. ID Date Data Source [id number] 05/17/2019 07:10:[address] [facility] Value Range Interpretation Code Description Data Varsha rce(s) Supporting Document(s) aPTT in Platelet poor plasma by Coagulation assay 45.0 s 24.0-34. 0 [facility] ID Date Data Source [id number] 05/16/2019 04:07:36 PM [facility] Name Value Range Interpretation Code Description Data Varsha rce(s) Supporting Document(s) aPTT in Platelet poor plasma by Coagulation assay 44.3 s 24.0-34. 0 [facility] ID Date Data Source [id number] 05/16/2019 09:35:09 AM [facility] Name Value Range Interpretation Code Description Data Varsha rce(s) Supporting Document(s) [facility] VERRXs9jMiCMRlEdw1GbZiPiUUNtPT2sqvh9T8S7iDJfE1YhlMDpw1piW2HaS8MpXNRqLILILU5KnVJn jb2 [file] N9nzx4834Kv/ljnmfKGLs6In5hJBx6/736ffO0NsPZPY+eW5o6QzqtuRJB7sb5RJ33n6vsZ684qnc+[employer] [file] 8/ffnN+1qX5x04/NF7d8026wGS1B8n/SHANE/rSO6XcB6h5ClV3/5/ru3j1/8+tMXX/+Up28f9F3waz4018 237z//8h+//Pzt09u/vPvV+7d3P//pk4ip8800ls7/8Y+tSrI/9fb+83/13asBNC67U//ryfcf5f4/8P W37z6+/8Huz5l23Sg8O34+/DMuN3m6r76e8me/42tu b+CvS/S0rfaK3azfd8n0+esrf/n9N59/+tFKV95y+J8SzaCxhM/li/fvPn56+3jb/cqk7d6a7Mcm1o83 +/mv35q//fz9u0/f/qyrH1eC5OAm5j616OxOb6/+1cMe5914/SqfXjf/7kx2w91SF795/+r9u1/8rS+4 vZb/vaFfX/4vb+9/9eUv3n/n8s4Iq9+8vvXD/+677w 7g/u5//dAy0e4MTh7+ev/N+1/8+UVyHjV91j///Kd///1f/td0o8u8v//j7esPH/7rF+8//vL9+79/++ 7df/998sh4523f4e6o/8vo//p3b3/+40s9qcKioL7coxjvk9oj++4yb2uLwW+E2B//+LP/9L0wbKBb8z J//BV4j+GH6/XF/zx6IfrIlS3t/ZArl4AG3Xz7dFuM 3/gnzrT8eM19ZDBX18J5/ngB408/YTGpqvfxd//+u7/3QIqqf5cUd/39x1eN/j++c8Nohx51aQB2Y/92 DP3z+/9g3mN1/vc2v63z758/G8TmKMMXju7A3C/e+1/97k//+Q9vf/nNf/7uB9/+ch/eMpjQ/aE/8nda 2pBiS1pFx69Ssa++/f5P//m7v/w/v/nD3/p7hcNqux 0++2ahP/72px5//O7t3/7769l//+c//fjrVyi+V493grIE/vnTz/7502/2m64UhKajs4F+1JJca8qUUS Pry48e/aDkhssT7Y0P+fFTbfbtTz/+9NPbb/7f3/7HF275p+/W5Kdfv/v1T++7Ou8PGRIee/zlX//uR5 /ev8PXv/nDD37f+QP6+W/++29/8x+//82ffvT/29Ie v//Tj///eWWu+Yf/9tf/+5jw45///WlXF2F1+dFHdnm/+zKnY0xQR914hwovWopg+PS73/5ff/r9b1+P +NnbiCnyo4+gyZr70h/4z1el+3cGne8fsqP/jYuKM11w4Ru1c3+/qmDb215MXi46BQ7OJ3vNgyAv6U33 +5v/68zh8j4N//2MoE79skq9Na/ahzE5J86p9NiI9H /vf/Ke9UnsJlLhWEGEU2/x/gQyi95GzRlJW16b428/+P9c88a4nx+effWlsW/y/qAf2RXlSaXcXEA1ev MokLvlopAwOvyLAFzvTMHdZhz2YI0ZsXQhOTKlL8D0ODCoth8zREXbHAYcmWAcFmFlKJLNDV3TjOQyTX 5DMTm5WZEzSTGlMgMoOUKjvwE9LGSlJEKvZIXgF2Gk cmVudCAyIDAgUj4+ER9km6BuJsLjRVMxRkx2IU4WjHFoZU6OzWEghP1xsxOdO608fkNkBSFjPujod2Ni SHubFEBPOH5QJYW7LPX4LBQeHm6+KX5tq4QwGcBrCBGwWwz7PA0KaMUev1PzZE3EI1AsSOOiDCUMSYF6 v9FzQVMrbwuluagiZ7KeLWD2rZ2gNFP0CAQpVKlhDW BhLCZhLkC7XrCzNTcoPINkBVUjDOTuEWZdGBc5vZTuBA8NP3JsLREzNRQDSUEjreSrIc5bWLyTI26HO7 0YAJIPO5GSPIDzDghvOYZ0XGgpM8V8ZfpuM8KgTT1OP5DwTNLaLDEXJZFugoAkXY3SesXpkO6aIKlMWO JNVFjTOKhnJjQ9r53ikbYFNUBhZJJlKXseMOAfKAVa AAGiYEUoRFVrIQRzIQCsUI4KM6ElOKLqZMGDWQQ2w0HhXGQrmragzzqhBs5eukAzGid+ZfruIUEeo0Xx AKttM1V1cIXxC7BoQ1VvXC0IdOIbTTquKARrJDPrSDRmW173xnBaCA6+OK6iq4YcGykvSCFZORGeXMWw QLYdVUT7JaImQTHqRCRcCYIyJqD6HfYhAzHBGZIzYT D4Zje0TZFvTRRsGBEdHQshFANiIGCqEET2ETGlWLHmAA5lDvAoIGPsCpH0USOcUQAdOLNlaoMAKYQnKO SxZTZnTSO5RWEuDZDsUIpcCJBwFOEoAIP8BMOvYEMsRQ0kXaWpBRMmETHvQfezISAgEYFgnqZTLLOzOS PzMHV4ZtJjACKkEZKbUIduYNFrWHKrWpv8NWLwDRIi RW7zTvDmAYXuDUC3IMmeGQMtTLKhwfTIOEEcAXMqXPCiAuUnEEBvXSYiYOanAQOjUXMeVdBpYHTlGSJb XQ5yMxSxLYWlGBU7PNBpJKTfWKRlzuGFEGPxWNQvCCa8SBCmVSTbIAJdTPebEKLiJEDvOVB3GBJtTMGj OI2iCeIvFESnYAAaWXIkUMEjZQDuorQDYJUuGYTkVL E4OHRsSCWeYJLbTOacTXVvPYAlXyw1HZNvNPAqWW4sUoCeQQNwPQW9MZCqOJLqHWMnwkYUPNYdCTH6Mq XwIzCwVGQhGOBoFEffOYUfEKMgWsH2BMJtOROhMJ3kPzNtQIAaEAU9MfPlJDIbJUGmrzPCAEImFOWaFV G9CqAbFPIyCTUvCFviKGQrWTYqJRAnMRQ0ULW5HGJu ElThRFjrKOOYWDzAX9LqxuXyRwHBQ3dgUh8rJtTdMMILH5Ftz9KcSSFsGVXSKn4+GvK9XBX6iMVwQfa5 MjgzMAolJUVPRg== ID Date Data Source [id number] 05/16/2019 10:23:18 AM [facility] Name Value Range Interpretation Code Description Data Varsha rce(s) Supporting Document(s) aPTT in Platelet poor plasma by Coagulation assay 47.7 s 24.0-34. 0 [facility] ID Date Data Source [id number] 05/16/2019 03:52:48 AM [facility] Name Value Range Interpretation Code Description Data Varsha rce(s) Supporting Document(s) Leukocytes [#/volume] in Blood by Automated count 5.3 10*3/uL 4-10 [facility] Erythrocytes [#/volume] in Blood by Automated count 4.24 10*6/uL 4.6- 6.1 L [facility] Hemoglobin [Mass/volume] in Blood 12.7 g/dL 13.5-18 L [facility] Hematocrit [Volume Fraction] of Blood by Automated count 36.2 % 4 1-53 L [facility] Erythrocyte mean corpuscular volume [Entitic volume] by Auto mated count 85.4 fL 80-96 [facility] Erythrocyte mean corpuscular hemoglobin [Entitic mass] by Automated count 29.9 pg 27-33 [facility] Erythrocyte mean corpuscular hemoglobin concentration [Mass/volume] by [facility] 35.1 g/[facility] width [Ratio] by Automated count 13.1 % 11.5-14.5 [facility] Platelets [#/volume] in Blood by Automated count 230 10*3/uL 150-400 [facility] ID Date Data Source [id number] 05/16/2019 04:03:58 AM [facility] Name Value Range Interpretation Code Description Data Varsha rce(s) Supporting Document(s) Prothrombin time (PT) 19.1 s 12.5-14.9 [facility] INR in Platelet poor plasma by Coagulation assay 1.55 [facility] Routine intensity oral anticoagulation I NR is typically 2.0-3.0. Target INR must be clinically individualized. ID Date Data Source [id number] 05/16/2019 04:03:[address] [facility] Value Range Interpretation Code Description Data Varsha rce(s) Supporting Document(s) aPTT in Platelet poor plasma by Coagulation assay 46.2 s 24.0-34. 0 [facility] ID Date Data Source [id number] 05/16/2019 04:10:[address] [facility] Value Range Interpretation Code Description Data Varsha rce(s) Supporting Document(s) Bicarbonate [Moles/volume] in Serum 21 mmol/L 22-29 L [facility] Chloride [Moles/volume] in Serum or Plasma 103 mmol/L 98-107 [facility] Creatinine [Mass/volume] in Serum or Plasma 0.82 mg/dL 0.70-1.20 [facility] Glucose [Mass/volume] in Serum or Plasma 111 mg/dL 70-140 [facility] Potassium [Moles/volume] in Serum or Plasma 4.3 mmol/L 3.4-5.1 [facility] Sodium [Moles/volume] in Serum or Plasma 138 mmol/L 136-145 [facility] Urea nitrogen [Mass/volume] in Serum or Plasma 14 mg/dL 6-20 [facility] Anion gap 3 in Serum or Plasma 14 mmol/L 8-15 [facility] Osmolality of Serum or Plasma by calculation 287 mosm/kg 275-300 [facility] Creatinine/Urea nitrogen [Mass Ratio] in Serum or Plasma 16 [facility] Calcium [Mass/volume] in Serum or Plasma 8.5 mg/dL 8.6-10.0 L [facility] Glomerular filtration rate/1.73 sq M pre dicted among non-blacks [Volume Rate/Area] in Serum or Plasma by Creatinine-based formula (MDRD) >6 0 [facility] Glomerular filtration rate/1.73 sq M pre dicted among blacks [Volume Rate/Area] in Serum or Plasma by Creatinine-based formula (MDRD) >60 [facility] ID Date Data Source [id number] 05/15/2019 07:38:37 PM [facility] Name Value Range Interpretation Code Description Data Varsha rce(s) Supporting Document(s) aPTT in Platelet poor plasma by Coagulation assay 42.5 s 24.0-34. 0 [facility] ID Date Data Source [id number] 05/15/2019 12:09:11 PM [facility] Name Value Range Interpretation Code Description Data Varsha rce(s) Supporting Document(s) aPTT in Platelet poor plasma by Coagulation assay 33.0 s 24.0-34. 0 [facility] ID Date Data Source [id number] 05/15/2019 05:29:[address] [facility] Value Range Interpretation Code Description Data Varsha rce(s) Supporting Document(s) Leukocytes [#/volume] in Blood by Automated count 5.8 10*3/uL 4-10 [facility] Erythrocytes [#/volume] in Blood by Automated count 4.18 10*6/uL 4.6- 6.1 L [facility] Hemoglobin [Mass/volume] in Blood 12.7 g/dL 13.5-18 [facility] Hematocrit [Volume Fraction] of Blood by Automated count 35.7 % 4 1-53 L [facility] Erythrocyte mean corpuscular volume [Entitic volume] by Auto mated count 85.4 fL 80-96 [facility] Erythrocyte mean corpuscular hemoglobin [Entitic mass] by Automated count 30.5 pg 27-33 [facility] Erythrocyte mean corpuscular hemoglobin concentration [Mass/volume] by Automated count 35.7 g/dL 32.0-[facility].0 [facility] width [Ratio] by Automated count 13.0 % 11.5-14.5 [facility] Platelets [#/volume] in Blood by Automated count 221 10*3/uL 150-400 [facility] ID Date Data Source [id number] 05/15/2019 05:31:55 AM [facility] Name Value Range Interpretation Code Description Data Varsha rce(s) Supporting Document(s) Prothrombin time (PT) 14.9 s 12.5-14.9 [facility] INR in Platelet poor plasma by Coagulation assay 1.13 [facility] Routine intensity oral anticoagulation I NR is typically 2.0-3.0. Target INR must be clinically individualized. ID Date Data Source [id number] 05/15/2019 05:31:[address] [facility] Value Range Interpretation Code Description Data Varsha rce(s) Supporting Document(s) aPTT in Platelet poor plasma by Coagulation assay 31.2 s 24.0-34. 0 [facility] ID Date Data Source [id number] 05/15/2019 05:54:[address] [facility] Value Range Interpretation Code Description Data Varsha rce(s) Supporting Document(s) Bicarbonate [Moles/volume] in Serum 22 mmol/L - [facility] Chloride [Moles/volume] in Serum or Plasma 104 mmol/L 98-107 [facility] Creatinine [Mass/volume] in Serum or Plasma 0.81 mg/dL 0.70-1.20 [facility] Glucose [Mass/volume] in Serum or Plasma 111 mg/dL 70-140 [facility] Potassium [Moles/volume] in Serum or Plasma 3.8 mmol/L 3.4-5.1 [facility] Sodium [Moles/volume] in Serum or Plasma 141 mmol/L 136-145 [facility] Urea nitrogen [Mass/volume] in Serum or Plasma 15 mg/dL 6-20 [facility] Anion gap 3 in Serum or Plasma 14 mmol/L 8-15 [facility] Osmolality of Serum or Plasma by calculation 294 mosm/kg 275-300 [facility] Creatinine/Urea nitrogen [Mass Ratio] in Serum or Plasma 19 [facility] Calcium [Mass/volume] in Serum or Plasma 8.6 mg/dL 8.6-10.0 [facility] Glomerular filtration rate/1.73 sq M pre dicted among non-blacks [Volume Rate/Area] in Serum or Plasma by Creatinine-based formula (MDRD) >6 0 [facility] Glomerular filtration rate/1.73 sq M pre dicted among blacks [Volume Rate/Area] in Serum or Plasma by Creatinine-based formula (MDRD) >60 [facility] ID Date Data Source [id number] 05/14/2019 10:06:52 PM [facility] Name Value Range Interpretation Code Description Data Varsha rce(s) Supporting Document(s) aPTT in Platelet poor plasma by Coagulation assay 28.7 s 24.0-34. 0 [facility] ID Date Data Source [id number] 05/14/2019 04:07:17 PM [facility] Name Value Range Interpretation Code Description Data Varsha rce(s) Supporting Document(s) aPTT in Platelet poor plasma by Coagulation assay 29.5 s 24.0-34. 0 [facility] ID Date Data Source [id number] 05/14/2019 06:11:49 AM [facility] Name Value Range Interpretation Code Description Data Varsha rce(s) Supporting Document(s) History and Physical [facility] SIGVFn1lTjNNBvCr30/RSXdvKGCrj1KvDOomANk0BXtdQDScV5GxQYZ1rI6bCJE0WYjNMdUqUoYeRIS[facility] [file] [id number]== ID Date Data Source 05/14/2019 03:47:[address] [facility] Value Range Interpretation Code Description Data Varsha rce(s) Supporting Document(s) Leukocytes [#/volume] in Blood by Automated count 5.5 10*3/uL 4-10 [facility] Erythrocytes [#/volume] in Blood by Automated count 4.11 10*6/uL 4.6- 6.1 L [facility] Hemoglobin [Mass/volume] in Blood 12.4 g/dL 13.5-18 L [facility] Hematocrit [Volume Fraction] of Blood by Automated count 35.8 % 4 1-53 L [facility] Erythrocyte mean corpuscular volume [Entitic volume] by Auto mated count 87.1 fL 80-96 [facility] Erythrocyte mean corpuscular hemoglobin [Entitic mass] by Automated count 30.1 pg 27-33 [facility] Erythrocyte mean corpuscular hemoglobin concentration [Mass/volume] by Automated count 34.6 g/dL 32.0-36.0 [facility] E[facility]th[facility] distribution width [Ratio] by Automated count 13.2 % 11.5-14.5 [facility] Platelets [#/volume] in Blood by Automated count 161 10*3/uL 150-400 [facility] ID Date Data Source 05/14/2019 03:59:[address] [facility] Value Range Interpretation Code Description Data Varsha rce(s) Supporting Document(s) Prothrombin time (PT) 13.0 s 12.5-14.9 [facility] INR in Platelet poor plasma by Coagulation assay 0.95 [facility] Routine intensity oral anticoagulation I NR is typically 2.0-3.0. Target INR must be clinically individualized. ID Date Data Source 05/14/2019 04:12:[address] [facility] Value Range Interpretation Code Description Data Varsha rce(s) Supporting Document(s) Magnesium [Mass/volume] in Serum or Plasma 2.1 mg/dL 1.6-2.6 [facility] ID Date Data Source 05/14/2019 04:12:[address] [facility] Value Range Interpretation Code Description Data Varsha rce(s) Supporting Document(s) Bicarbonate [Moles/volume] in Serum 23 mmol/L 22-29 [facility] Chloride [Moles/volume] in Serum or Plasma 102 mmol/L 98-107 [facility] Creatinine [Mass/volume] in Serum or Plasma 0.87 mg/dL 0.70-1.20 [facility] Glucose [Mass/volume] in Serum or Plasma 106 mg/dL 70-140 [facility] Potassium [Moles/volume] in Serum or Plasma 3.9 mmol/L 3.4-5.1 [facility] Sodium [Moles/volume] in Serum or Plasma 138 mmol/L 136-145 [facility] Urea nitrogen [Mass/volume] in Serum or Plasma 23 mg/dL 6-20 H [facility] Anion gap 3 in Serum or Plasma 13 mmol/L 8-15 [facility] Osmolality of Serum or Plasma by calculation 290 mosm/kg 275-300 [facility] Creatinine/Urea nitrogen [Mass Ratio] in Serum or Plasma 26 [facility] Calcium [Mass/volume] in Serum or Plasma 8.8 mg/dL 8.6-10.0 [facility] Glomerular filtration rate/1.73 sq M pre dicted among non-blacks [Volume Rate/Area] in Serum or Plasma by Creatinine-based formula (MDRD) >6 0 [facility] Glomerular filtration rate/1.73 sq M pre dicted among blacks [Volume Rate/Area] in Serum or Plasma by Creatinine-based formula (MDRD) >60 [facility] ID Date Data Source [id number] 05/14/2019 08:38:[address] [facility] Value Range Interpretation Code Description Data Varsha rce(s) Supporting Document(s) aPTT in Platelet poor plasma by Coagulation assay 32.0 s 24.0-34. 0 [facility] ID Date Data Source [id number] 05/13/2019 08:56:[address] [facility] Value Range Interpretation Code Description Data Varsha rce(s) Supporting Document(s) Progress Note [facility] TITCGv2lZsEVEnVw08/HJDshEPKra3CpBOqeAQa9RCknPDYwN4VfULJ4fC8vMER0DUqRZvGyTlPeBMDn [facility] EhDlhONxFoXEWiHxvSFgXoJFchFpaavUOtUA1IjFU1RLYeG97uRNMhVNPyQ7WfUPGlCrV+Kk7PFMJqvU NlWC2FHlvC1Q7mm+GTTz3jwJ7vlCRFC+DfbbpiNvJ4kc2PZ1v5hW3Mvx7aWYz1ofvQb8kMYd++FLl8mT y0cGfr0c3lNiP6KAEmsJkzWonxIOqK//rP1VEHvuxh +a/6P1tzYE+KP/5FTGs2ukjt+gPkEE7XXyhO+OZdp7750XInr5U8tAXCrCN8xS79WjHbtpnN0JpcYQo6 Teresa/RV8c96t45+ZHpeQao542c/TW4IZmsQcm41/+Yjgys4Wz+B4nhd34nv6ce33uZ1LTgF86Nxgi5vdA [file] [id number]= ID Date Data Source [id number] 05/13/2019 08:42:14 AM [facility] Name Value Range Interpretation Code Description Data Varsha rce(s) Supporting Document(s) Operative Note [facility] OHGOZa7pDlTLKbYu88/IUVmmQNWzv8BdCMklKJh0WCgqXADcM4IxRSD7pA9wEMZ9TShZJqOjSqEhHTLs lbm FzKdeVGmFpWVWgAzwPEiRdVPywChrevMYsSD0UsKB8HECjY73iNGQpMWXxW0TbRIA5Tmq+Gm3UPCWncR FoPX9LNvyJ4B9pBxGNGb3+QjppWfNbNjT2Xt9dfohlr7qtfEIHdlgUXT4nuJTsPOkuV/332/QLkDntI9 Jf4B0287LdtpgwRorzhhurVnBsz2+p/cCzLEvN/y8+ BpFW/Tv1z3+k0EQGO3KvZ3JJ3MWnoJhMT5D+dOwfH/sGEpdyJGEHI78spDOCud0c1xTVP20Js5K7Y5r8 mIw/qrPJw/AxVp/Yuriy/xmEhuKRo63HmfQb+r3t4Fx9b+bMzXtnzXXnC+bT8TWSwdju2xRupXTIsGxv0F [file] HUAvENH8DCSqQQUbUaMzZhOoFmM9AqRxYH4HIv6HOhY2KTJ2bUVdEy1OEDD5SUwUBcBfYT2QSVe= ID Date Data Source [id number] 05/13/2019 04:04:46 AM [facility] Name Value Range Interpretation Code Description Data Varsha rce(s) Supporting Document(s) Leukocytes [#/volume] in Blood by Automated count 7.0 10*3/uL 4-10 [facility] Erythrocytes [#/volume] in Blood by Automated count 3.92 10*6/uL 4.6- 6.1 L [facility] Hemoglobin [Mass/volume] in Blood 11.8 g/dL 13.5-18 L [facility] Hematocrit [Volume Fraction] of Blood by Automated count 34.1 % 4 1-53 L [facility] Erythrocyte mean corpuscular volume [Entitic volume] by Auto mated count 87.0 fL 80-96 [facility] Erythrocyte mean corpuscular hemoglobin [Entitic mass] by Automated count 30.2 pg 27-33 [facility] Erythrocyte mean corpuscular hemoglobin concentration [Mass/volume] by Automated count 34.7 g/dL 32.0-36.0 [facility] E[facility]th[facility] distribution width [Ratio] by Automated count 13.5 % 11.5-14.5 [facility] Platelets [#/volume] in Blood by Automated count 111 10*3/uL 150-400 L [facility] ID Date Data Source [id number] 05/13/2019 04:17:[address] [facility] Value Range Interpretation Code Description Data Varsha rce(s) Supporting Document(s) Prothrombin time (PT) 13.9 s 12.5-14.9 [facility] INR in Platelet poor plasma by Coagulation assay 1.04 [facility] Routine intensity oral anticoagulation I NR is typically 2.0-3.0. Target INR must be clinically individualized. ID Date Data Source [id number] 05/13/2019 04:30:[address] [facility] Value Range Interpretation Code Description Data Varsha rce(s) Supporting Document(s) Bicarbonate [Moles/volume] in Serum 27 mmol/L 22-29 [facility] Chloride [Moles/volume] in Serum or Plasma 100 mmol/L 98-107 [facility] Creatinine [Mass/volume] in Serum or Plasma 0.80 mg/dL 0.70-1.20 [facility] Glucose [Mass/volume] in Serum or Plasma 103 mg/dL 70-140 [facility] Potassium [Moles/volume] in Serum or Plasma 4.1 mmol/L 3.4-5.1 [facility] Sodium [Moles/volume] in Serum or Plasma 136 mmol/L 136-145 [facility] Urea nitrogen [Mass/volume] in Serum or Plasma 19 mg/dL 6-20 [facility] Anion gap 3 in Serum or Plasma 9 mmol/L 8-15 [facility] Osmolality of Serum or Plasma by calculation 285 mosm/kg 275-300 [facility] Creatinine/Urea nitrogen [Mass Ratio] in Serum or Plasma 24 [facility] Calcium [Mass/volume] in Serum or Plasma 8.8 mg/dL 8.6-10.0 [facility] Glomerular filtration rate/1.73 sq M pre dicted among non-blacks [Volume Rate/Area] in Serum or Plasma by Creatinine-based formula (MDRD) >6 0 [facility] Glomerular filtration rate/1.73 sq M pre dicted among blacks [Volume Rate/Area] in Serum or Plasma by Creatinine-based formula (MDRD) >60 [facility] ID Date Data Source [id number] 05/13/2019 04:30:[address] [facility] Value Range Interpretation Code Description Data Varsha rce(s) Supporting Document(s) Magnesium [Mass/volume] in Serum or Plasma 2.0 mg/dL 1.6-2.6 [facility] ID Date Data Source [id number] 05/12/2019 12:27:27 PM [facility] XR CHEST FRONTAL AND LATERAL [id number] RESULTInterpreted by:ASHU MylesROCEDURE INFORMATION: Exam: XR Chest, 2 Views Exam date and time: 05/12/2019 12:16 PM Age: 43 years old Clinical indication: Aortic aneurysm of unspecified site, without rupture; Other: Chest tube removal TECHNIQUE: Imaging protocol: XR of the chest Views: 2 views. COMPARISON: CR XR CHEST FRONTAL ONLY [id number] PORTABLE 05/11/2019 4:13 AM FINDINGS: Lungs: There is stable atelectasis and/or infiltrate at the left lung base. Pleural space: Unremarkable. No pleural effusion. No pneumothorax. Heart/Mediastinum: The heart is enlarged. An intracardiac valve device is noted. Vasculature: No acute abnormality is seen in the aorta as visualized. Bones/joints: There are sternal wire sutures or fixation devices. IMPRESSION: 1. No acute abnormality is seen in the aorta as visualized. 2. There is stable atelectasis and/or infiltrate at the left lung base. THIS DOCUMENT HAS BEEN ELECTRONICALLY SIGNED BY REGINA DOLAN MDThis document has been electronically signed by Regina Dolan MD on 05/12/2019 12:27 PM Name Value Range Interpretation Code Description Data Varsha rce(s) Supporting Document(s) ID Date Data Source [id number] 05/12/2019 06:25:58 AM [facility] Name Value Range Interpretation Code Description Data Varsha rce(s) Supporting Document(s) Glucose [Mass/volume] in Capillary blood by Glucometer 120 mg/dL 70- 140 [facility] ID Date Data Source [id number] 05/12/2019 03:42:06 AM [facility] Name Value Range Interpretation Code Description Data Varsha rce(s) Supporting Document(s) Leukocytes [#/volume] in Blood by Automated count 10.7 10*3/uL 4-10 H [facility] Erythrocytes [#/volume] in Blood by Automated count 4.01 10*6/uL 4.6- 6.1 L [facility] Hemoglobin [Mass/volume] in Blood 12.2 g/dL 13.5-18 L [facility] Hematocrit [Volume Fraction] of Blood by Automated count 34.9 % 4 1-53 L [facility] Erythrocyte mean corpuscular volume [Entitic volume] by Auto mated count 87.0 fL 80-96 [facility] Erythrocyte mean corpuscular hemoglobin [Entitic mass] by Automated count 30.5 pg 27-33 [facility] Erythrocyte mean corpuscular hemoglobin concentration [Mass/volume] by Automated count 35.1 g/dL 32.0-36.0 [facility] E[facility]th[facility] distribution width [Ratio] by Automated count 13.5 % 11.5-14.5 [facility] Platelets [#/volume] in Blood by Automated count 112 10*3/uL 150-400 L [facility] ID Date Data Source [id number] 05/12/2019 03:56:54 AM [facility] Name Value Range Interpretation Code Description Data Varsha rce(s) Supporting Document(s) Prothrombin time (PT) 14.1 s 12.5-14.9 [facility] INR in Platelet poor plasma by Coagulation assay 1.06 [facility] Routine intensity oral anticoagulation I NR is typically 2.0-3.0. Target INR must be clinically individualized. ID Date Data Source [id number] 05/12/2019 04:26:34 AM [facility] Name Value Range Interpretation Code Description Data Varsha rce(s) Supporting Document(s) Bicarbonate [Moles/volume] in Serum 24 mmol/L 22-29 [facility] Chloride [Moles/volume] in Serum or Plasma 102 mmol/L 98-107 [facility] Creatinine [Mass/volume] in Serum or Plasma 0.87 mg/dL 0.70-1.20 [facility] Glucose [Mass/volume] in Serum or Plasma 110 mg/dL 70-140 [facility] Potassium [Moles/volume] in Serum or Plasma 4.7 mmol/L 3.4-5.1 [facility] Sodium [Moles/volume] in Serum or Plasma 138 mmol/L 136-145 [facility] Urea nitrogen [Mass/volume] in Serum or Plasma 23 mg/dL 6-20 H [facility] Anion gap 3 in Serum or Plasma 12 mmol/L 8-15 [facility] Osmolality of Serum or Plasma by calculation 290 mosm/kg 275-300 [facility] Creatinine/Urea nitrogen [Mass Ratio] in Serum or Plasma 26 [facility] Calcium [Mass/volume] in Serum or Plasma 8.4 mg/dL 8.6-10.0 L [facility] Glomerular filtration rate/1.73 sq M pre dicted among non-blacks [Volume Rate/Area] in Serum or Plasma by Creatinine-based formula (MDRD) >6 0 [facility] Glomerular filtration rate/1.73 sq M pre dicted among blacks [Volume Rate/Area] in Serum or Plasma by Creatinine-based formula (MDRD) >60 [facility] ID Date Data Source [id number] 05/12/2019 04:26:[address] [facility] Value Range Interpretation Code Description Data Varsha rce(s) Supporting Document(s) Magnesium [Mass/volume] in Serum or Plasma 2.0 mg/dL 1.6-2.6 [facility] ID Date Data Source [id number] 05/12/2019 12:10:[address] [facility] Value Range Interpretation Code Description Data Varsha rce(s) Supporting Document(s) Glucose [Mass/volume] in Capillary blood by Glucometer 120 mg/dL 70- 140 [facility] ID Date Data Source [id number] 05/11/2019 06:03:[address] [facility] Value Range Interpretation Code Description Data Varsha rce(s) Supporting Document(s) Glucose [Mass/volume] in Capillary blood by Glucometer 102 mg/dL 70- 140 [facility] ID Date Data Source [id number] 05/11/2019 12:24:[address] [facility] Value Range Interpretation Code Description Data Varsha rce(s) Supporting Document(s) Glucose [Mass/volume] in Capillary blood by Glucometer 141 mg/dL 70- 140 [facility] ID Date Data Source [id number] 05/11/2019 11:15:[address] [facility] Value Range Interpretation Code Description Data Varsha rce(s) Supporting Document(s) Glucose [Mass/volume] in Capillary blood by Glucometer 159 mg/dL 70- 140 [facility] ID Date Data Source [id number] 05/11/2019 11:15:[address] [facility] Value Range Interpretation Code Description Data Varsha rce(s) Supporting Document(s) Glucose [Mass/volume] in Capillary blood by Glucometer 28 mg/dL 70- 140 [facility] ID Date Data Source [id number] 05/11/2019 11:15:[address] [facility] Value Range Interpretation Code Description Data Varsha rce(s) Supporting Document(s) Glucose [Mass/volume] in Capillary blood by Glucometer 109 mg/dL 70- 140 [facility] ID Date Data Source [id number] 05/11/2019 10:49:[address] [facility] Value Range Interpretation Code Description Data Varsha rce(s) Supporting Document(s) Glucose [Mass/volume] in Capillary blood by Glucometer 159 mg/dL 70- 140 [facility] ID Date Data Source [id number] 05/11/2019 10:21:[address] [facility] Value Range Interpretation Code Description Data Varsha rce(s) Supporting Document(s) Glucose [Mass/volume] in Capillary blood by Glucometer 93 mg/dL 70- 140 [facility] ID Date Data Source [id number] 05/11/2019 09:26:[address] [facility] Value Range Interpretation Code Description Data Varsha rce(s) Supporting Document(s) Glucose [Mass/volume] in Capillary blood by Glucometer 121 mg/dL 70- 140 [facility] ID Date Data Source [id number] 05/11/2019 09:05:[address] [facility] Value Range Interpretation Code Description Data Varsha rce(s) Supporting Document(s) [facility] PUVUSv4zWuKARfTav3DsAvMeEXFaUY5zwum4D5Y1qIChV6NukVDsb9pkN1IaG2ImRXQhYKLQBT3PlWGd jb2 [file] xzVnxZ0zCHR/half-way/XRfDBu9TiiJ/Qd+g69QW/QO/EJiLYt0Mg6Ve0ZSa3TiEhMQwE0He4AcWpWKpI9Rz 7JzTdINhT1Mb3LdXzKGcR5Wq7CyJeBOyV8Jl5PmWvU CeP2Qr6KnYhCBwH6So8YmPuS4fObRv0t6H+tC4nmsKo2Eo9SgPrVOeL1Dr0yeY9Clhyj22CvkeZ4mPuw qZ5uxJhxK7yjav/Y1E91ix7Wx9J98W+VHcq/3jS2rRmuxmu7AqPv5Jr2il4XOp/PD17faLdeRb6xOf16 11K5qih8e/o2302quz+q8yn/nj7NaqheAq2gE2Dis2 C65n4SQxycupafnm3oJcyDJHQw4yjmmR0s+O2iTIR2fL4yZJ++Jm04l1Gtx+ZVQFI8sliXn1afvx4c/b +7x1W2Zi6Fnlt9wn/a0udeFTgymyuqtdhrngRqKg9kH4JhPriyz/r8Hb/F2nhD2pA3i+YARON+VFxzqH+/ vuTfbkU41Q/8hg92QQ6J1dK867m27xa/M7y7+am1S3 8q/WsUA/+3OdQ/lFCswcv7ue8D3Ic3h0TXq/r++Mm7Xyr+Wi5452k9845I+sFiTj1WOfO/wYYhBW3Is5 4+qNp7zU0Eu0Dq3Za/EbGL+E1QvGo3XfIjz/gfEbGL+L1GrEr7I6XeGjHdbuvAyGnK8H16McdhvWM2v1 KjFfJdqbaG+ggSi4AjhowK+uxOt4WnanfE+jgPg8Px qbaG+btuAl6Rwa/1gCH5bieY/QgdGm6qn+cxsN+rN2w57Ma8Brui/xu8e/asu/UuwMD09wjs9A+P7jT/ brPC/064L+zYg2rarwbt8/kX4OcVA+Qd+u14Ie4Tk3H+/OO28wmR7V43/oB/QnvtHl+M+9/Uvcnd8u+v qrk4fkKx1iE/7S6acB79k/bUsHUw1Kx6/L7X64GlCL L/+hl959q3L+7BznMx/28q/V2DuulL/18q/eoRexXQx59h/NlXBa4Um0Jd9UbbNxc+9qx+6j2Wn5R+/Q j1lNpo8nN6ZWqd1dzcO1khMrY+5j0NZ3mP0p61on3dZl2CYlF/DlipYlxDs6aS41Wte4D8/1hqUWLaEf 0J/5qvczP/d+QS/QC/R6+r9El508HrJaan5T/4d/1X wH6kR72T21zn7bC+gT+oR+QD+OvuJX+xh6jF/D+N386R5MQf9k+CK83kT67D4142sB4QdhzPsGdHzH1P CsR6G0JVbor/G85476G/9Y4pp1gH7X41/4p7dG74ZEzBBAktgsiMM+cpjTegXBucC98evof4D4yqL17b voz4H+AN3U1bx8b63XWxpxrE7F3yvjU2Asj63Pe+sb 6M+B/hzoz4H+QJjGam5l3Y/lX63vH+d38/rwMkMxRPhY0X17C2VqEDuQ8Z22S/5Vh3/V4V91+Fcd/lWH z1OgP5L4Gg1+VYd/1wQk4QRuItHwFpzSE/54tD2Z4AeL/veIffug19D9kMD+HpifB+vrcln6OWWOIm9G A/oogxsRHHrxk765bV9AhpZydDncMvuWcXR+Q9+hN+ hPe+067bXLoQ/oA/yTPjCi9Z/1avYWBgTP4DC5sc1A+NJcupCTLit3R4L/MpOjBU0Gar2veX2L0LyC/M pVptQIlyphQ5W5lgV/MsSvDPErQ/sTQX2nvZ9G9VaD/IgAbfCAvzzgK2A7H9WoQZzN3MK4gwM/MsSvDP ErQ/uYHP5lzY3S9WlW/Nkq8uhHmSFf3G2O2rhorquM K/2jpmgv4a/NWIrV+cfqi0xQc/gxw51Fe/e/Mt6VuX7/87O14z/RXUn6hiOERkvdUOI8PaBazKSMkdqW FVeZKRgaS3/Qn0iL8lyLFDErhR+x4jwz/xWq367zefLIQsTMxHpX6r300Tw97RdiXRXplCznncvRBt0y TrWO7/Mp+5d1oj2qRxcKBhrAw/6kjBVQsAjDG4e8eo 7UvuYmkGaE3/oTT64iKnw2O+t/ar7XqXf5n286Hne6xvfT8+cvpO8kr+W0LggLor21NAmoHTniKB6y3d j6Gb/K+hqAU74Ygc05YyWm6tqJl8NQg/N6guLg1Of1Hv9C25Dp0LpcX/QGvUE/x+39D4e1IuTNsHGt0A /d1s727BrKY5bJMoHI8MA0Fv4RpjBxxJbzMPx4F2Af IGyQ0D7/qmxV/mM1DjZRk77y79V0YPrqwLQEPB/O0E0l91T7BXmhhEFPUI/E9S3/vt4PX5GH0Paahs9c W58UeZG/SSSyRq5efe2gyF3UbDaxSGeQyuVas/v1/iv076uT8nI7S1+Bo3FmPgqE0qexU+gT+oR+QD8e vZd/tY+hF+jlOR8v/2qep5d/aV2y9B12/zaHv06oe8 P2Tg7cD5wF/Xyy4CgP0pRfYJ+/cbe431gdk6389enFy/z3x81w4VVsa74M/6rmQJ/+1RL6xRX+/avnGP hXbEqrfYzzSLxUUyYJ4QE2fV2SO10++lfr/Kd/pW5FrsMD8z8eNs0bNC/qOYa+Q9+hN+oPbqolxM1mDm TMV65n/Ftm3oh2uF/symavC8e0lEcyNYpIDwSj8Hnm O/VcjsAtBx8d9Z8Ys4k+X/QwXsGmS4T2clc3oohg33oLWfN1u+cj7+b9fYjHH3Sm9Vs0a68K92Nw5It0 Bh60PzB+no+8B/LBxLBh0A/oz/OR23k+ykktB8xfsoN1yxiG5wsaI+u4Qd+gP/Wr40lb4Cu4W5nj8mj7 WBbGBePG2CF4Rk35+eBs2khBn7dKGu2s1/Ytmf4C1+ i6ks1l92c+rgdp91in8S1S6C0J2N4O6O8Q9F6Z9Y2S9T9Y2L2UNk6ioB54McuHfzXmvYxzP/QN+g59h9 6gN+gdeoc+oA/oE/sPneFM6iJ4vXK6cDK2dCV0dZG9mKzLa7ty+iaub+L65nn/6+Xz1DHwVAnYKbF2bh 6H8DJ3Pz6B9/aNqNSbGs1E81Z6ppD+DsyA24uv2QXg IgcwU138wTG+6QmsMeINNfQ0L55pbXPqeV3N1pqqmbqgbsRbfsMomlIonaQgumKezuLxvvZbqpIfdlYu akKbovRpcpGljbPyogBorvGffsDakrWpjvMcmcEaouOkvjIfihVnw1SRNFuzjKYVAJxOgiRfbG/Qn/cL UfErL/5ZC9r87M91IR/QJ/QJ/YD+zU2QNf7JIz/oz3 rC0PO+O1ShV+tw9Q08Jw0K1jG26E63n31q5Bg/FV8mTnM1i7AZicr6Ra++RlT+2BwADAl9rnBUHh6G/u IEl3I2e/axQq/7xSE8tEsMRSKuAmrb/7Tz/IjLy5dE/593BIOlF30hC6p0/wsikU8WEOmy5Y7+Wdz+lf r6/NiFSLNPJlc9stVfRxYMj1B3/ujuL2YdPkC/iopf +Rjp106q91/41f58e/LgYsavYs4/KhCMOqosnf7x+1hS7xjs/5fVH9BMQ1Mbefc/7hzrb6V3ZiE9pkpu lV8d/fgb0Y8/Zr2Ew3Aagz59yRkbn/rpEPqKspxWFM8E8avN+AB1ubQ1aVFMO7X8HIfkp/g1jF/D+DWM B4S7BGwbj/x3zN0F5XF6nS6q8oY+PaIJCZ0rmr1iat 9jna0hlh3mtf6hgk15aE7FF+t2blA9Cb6JwjBC4u2X1i6M9t8I8c1C3b0F9s8kbgqv0gYetVxhTrJcz+ 3N+svAS4fqb/Ih0KE5AX/6VkL8Oj4Ex2dsc/Mu2SB6LS/QK/QN+bB62ppwv7ezNW/hoB3Xp68D6Z+t44 D+2YdYhgxKUMdJfO0992TF+QK0STvH+xa3aZ3oR+gV +cx9oBkEkkFig/HL44SFc6N06N23BV/QJ/QJ/YB+PPqs/MF9/Jx/Cfy6rIw0Iy7W48Vvh28z8nj97FHy qwJH0pA9Bl24vowz51yzP30nqH6sU/79u3KnR65+XZZ/gL3IygMmfJoiT/QN+tOfUzp+01O69F85hc2q Bd1a5j7EMV97/Crnw0P6yOE1U6L+hl6gF+gVelxfxf Wt/RnWcYe+Q2/QG/MUyFCu2Jc3LG3QR8A/4zfbGb/Z0J8b+wDIm99oeh0ibWzfO4mg1yb4u4hL+E28H8 u86yRi2r+u44A+oE/qKk7yhbRDp+3kw2Y/+tDB1x5GNVqVChDN3Kg2NwkOsUibaBsjKCk3j4T5Os1dbO 0Y5Yn0V8422omrS+zPkCbQC/QKvUJ/9n9X9S0Xpf2v LiKE9O9Okcw/cP4C7ph7/uCklCPo7QD7px077VoXve3W2z/+Vdamg6Z7sL3oM+if4P43Fm5K0xU78E61 hz6gD+gT+oR+QH/2k8k4+1wuvW16A0GMMW1+RsbZPydDoW/QN+b18S85w74dp+gd+oA+oE/sS0xo80my cV3ok0M5DR9Pc/Vd9meix9E9skWc1oqoc3V7xeXn5a wne7Y2mmBv3oseu6S7fdoMb1Y1movrfReDP/QKvULfoG/Qd+y78Cq2Km/QO/PSijDos7S0Gmcz6x/28T MPjOvMz+K3yJmpTZtROhOy5U/0oio4u9iqycUrvLjgVbcBZiUO1NF9Xs3Wrox572jRSv6YQ7Jw4Qd43s wxfzFuu4Q1ZN7Th4J51Y85AT/QJ/QJ/YD+3M2i4Ssz ZdUDNwOE3ZM5jK7m4PN/Gtqhx/Ut/6qv41s/Yyaj/EtXptbdB76W6+8jISHZ6A+b7IReT3hj4/nMbO9Y x+d7yr+q7y//qs6h/Aduum3klcjRg9b3bGq+ZfM2rfl/BhVBgzkWihoj4La21/5Sa9umZ64U5ci5ceY6 GjN+tT/mim2HK9zp8rzlzhDma4/4VV/Zu37TG9x9ev utU58puP+NGb+vTUJb2UhZCg9tboC9Ca7Jfshy68H/qLLDjF/Vvklj+mh0riw5pl6s4XY+aDV5rHq/e+ ZpSuahgo6waoH0TQ3t8Vy6Bl9Q/qwHHmt9+1VJawQ1Q/tfDTvxjVHxqxnHGNifYWB/hmHn+QkRpG5uuk 9Brty4Oz7h92E/Or4noA/oE/qEfkB/3duSbg0Al1/Q C/SGyVZo3Ufg0u8XV+3s7W6Zc5/+4WSV6nSC5LQ3hZ2sH3MinCDvMSFRQJkETF/QK/QKfYO+QY/rG7i+ geuL+NVA/ZvzvlQGggaRNt6DeuiwIyRpd6U67NX1kvD+NRC/GohfjRW/NmVv16wM20Js6NitZwzH5hg3 4huj/Te2ZWJB8Na9Jt/w/We/oHMIqkAzAWPV6KC57k iC6vC5WyL2jN0K0J0j9mYdRIuLMmj01UsVJH+G0ZuCf7gNb+Yo8lPIxA1LLHwM2V5Cyu8igfhXrMdQKI zJLpxYHBev3fj1nzzvpNjFr4JpYy1XoBR8QHXHTOSfnEMKXMxuhBm6v0h3zVVYSTLETbLmHY7Bl5uyzN 7XRU1uGQPXWJhRLRf0pP0ffmOL5o0TWKwHVMt4Zw7S aYVBIzBYoDDTmLITfqUFH8Es9u60g1qBVR5MXYe89yEEXMhylRtVy8bXhpvDlKL2ys0gror24Flkh6Sg +lswCEESJEmSJIME+zte/qkIctSo1BNVXIPo1H5I8gEqD+wo3KU8qh/vuHLdSIyE/dBpQ6P1W+QnvoQk KTREij9pPKvUovVtSEdIpNYhJ3abLCzX9yHefa5ZVn ZuxCx3RGwCMh1XcFDzHTwShd0cqrLIwsnO8th1prlVFXxDcK31+rH938bKjc5IRSpR1CA4UFneHxmYE6 wWz5rbgUHz95BqYxaMC8W5WVnjLTuQxUJ1TZAByp5W7ZtUzgZgG5ExJA0fSRRPYYA0EbM7uhB3jCNcKT Pf855ETZF3RQeuGB4gr/lC0V7azJ8Y0fdwcrkHgIwG mxGMfKXMhhAXQJfB1rSCRnE4EKOYjC5VtKYxt4TfYCoh7PuWPvx5lmHUPu5a8X2X+geD/sFgPxiDZByy toF/AGTeZRLwYOMQ5ds4MswRwbNcvHBlOoCiQQCuPCMtuiV9weaj/sfuGgXzFqGrjoUFnHXeKSmIfS9Y ToKnTAaJzB7HIdXptW6i4K1X+om1Y/8sXHZpJpc1NB YkhS00H4jP+xi6lH6L4lUff/OmjGezpoP1DztF9C9naqu5kMYhioihu5oG/j0hmbUxxxEPIcBZuERzbj 4k9mnmiX7eL2VccUHsa5Gto5QSkhgD8VagGnLpLyaVR0qnHO+EC1fcZVKQV9mml3Qi35/mZvYrGVHmbv bnf+sYF2P9k/9QREC7zl66HsmDbGX1I9gWVp3zOlr7 T2IZfwcgo8bvoV0b86mdl177sfF/oVeOT0NQub1UXibtkz1cakkIG3wC6TPhK45Nzqt4+2t/W6V3+Konstantin [file] e3//a/5e328Dwzthu22l011/727ftv/knzx6gwdu9/ 3du/vProv/zN2x//8CY/k/yUJE997rAVNq/opc7JFEv0Y5f8/vc/+0/+7Lt2YN2N/v2vwFu+JsiH9+sX /y/avKj39Ts01+8CdBYGOl+tn7/z7OGIZqkA6u3G3oHq0Ar+fg3at+cXQwmFxR0YjCnee//2T3+aBvvq 3b6b87132/7Xb1+/+/RnnXvuVXT+51j55/c/Lbv+ub n57zML/wzEn/9AK8/0Vl9Pi3d2p86fU/32D//1d29/+s1//twAfh6dSJaAfeX7r61WhpE/9bD/88ffvd EPn95+94f/+u2f/p/f/Mdf+fJtzj//8jrzzfKvnPlm//Tp89u//Y/Xmf/uj3/48dfPLfV+9PX1FQ/7py 8/+6cv/4jSKE7U964/5ut77kpYC7ejAf4srN3pnl+M nPFx5zZFu061qP9++umnX95+8z9/+59/IA9mnjq29+/f/fqn9/H1z8FY0d4//elf/vHUc09S1spp/Mef XdzxZ/Tr3/yPf/3Nf/7uN3/81s4yE8e+7g8//u7kuPp1d5/7y/54INgda1/8/Vev+9ydjk4k3/vdH//1 d8buzxFs6fQl7cn+/PZf/68//Q3qB5k78Qpi5Dkish TZWcCkPvuf//XqdP/39F2bF9/56ccf/jRTb8z7r/3x++9fE+Bea1wzuo/4//8fuZ/d3U5SiurR7/z337 7J2x///e25HV9/N7d6+e+vD//kZ19+uKMNb1/+/GvUoDU85CGRbW3vgp0++g778462+PD2/nU6Ililb/ PlNbvck+cb7/msK8E0Y9/7j24T49gO/cf55U895MqM V6u3R6X50UNxa4lXzb/h/vMTWuQIWzPgWVE5aiXgxAuiliCrEmyZYHbiSFAgWth8OZ8PkEMeBMWvV0E4 YGUtmk0hYQGmIDCxcKUeWfHuJLLISX5HnQPtXT4XJWv9FTXlLXZsXjQkDCXjkhT1WWQyHFQyKPUpG4Pn cmVudCAyIDAgUj4+ZM8pg5FwPiVtXBHgIqr6AX3PsX PfWZ3TrNPhnS5nakUoK425qlDdVVHrDutzk9CqQCzaQXGBWJ7RHQD3ZPB2PCJeGj6+LU4or2EsElPzWW MeQvl4VI1LbZKim8UaHW2PZ6LsVVCbLYUZSOO4l3NiVEZrqzkuysenF1BmPCP2cU2dUSX9OFBhICdwMP IvHFBfVQZ9MKHfXTvyBQXeLKLcQKHyKCZrIZz3vMSf VC9YW0PqTNKqBHWZLOUacgXvKm8vKIqUY79JQ80IONNPV4JJHSJuVnuyWAD5SVytK6M6TdwfA4MtEV5P Z7UqRMSgBPRMZOUedzOmPN1KuiTixY9pNUcOLLYAQRgFPLkpCgO3o99trdJIHXTkKHFaYMezRMTbTHQk VMYtLUGaMHJrLNQeKHKxKB0MW0XeWNQnNTGJJHK0t0 MxXMGckuqsbzbcLi8zlwIzPnu+AaniYEYzh4XfFPeeY8D8hNLlC8CoS3LzQA1OiUDhFYrhZDCrYJEnIK RvV925eqUuXB2+LL7ba7PhYdgsLWXVCMPoARIlFWWfUBW5AxByJEWjJAAnOYVnNiD8ZvZmJrFPXJKjJJ Y0YcTzXVKkEZGyPIIaSQycXKJzEEBoIWOcSUInMJSk XF8iSbFgMHViJxGdEeBfJTYfPYBosqEYIIEpSZWzDVScBAA5CVBeAFBmJTsuKBTgBDMbRFC3OSScBQDg MP7pGuDyBYHlBRWlOhgjROTeGWFcvwCNQGQlGMZwCVM8PyQcNJBcPLGfNMngSDSkEZBwXfz6JIHwUMDg QL0mKrFdMPNeTLZ1ZXfiQFYyRBTbyjWTQZUrYKUkDH DtNrVtVABoAMNhDDvpJXBcWPNeTvHoPWCrLSHwSM4gRpWfLUNvELC3YQQwMAChQTGiafAFGYTwAQQpYU c0QABnERBsLVWcAPvvSFNsDDCaAUY0LCAjFVWrFS9qYzOmQOVdJURzKLMhHRCpRKIyxzQEUZVtOKCeZL C0RGWiGXQqTVHqARwgRFJqMYCuSsb0KLQnLZPkMK9l ZzKlGFUpMTS5XQMoJOFzGPPlvnBHKROyQXR9KzW0LwKfCWPqODVlXFkqRGHhMSIdOrV4HLAcCWOiTH6a TpEjYQAtEQO7ApEkFZOhRBGnodLZYBKpWBIcIFM5KyRsCJPnABZlTLbmAMCzBCUlIROnXUH6OBL3MMVn LbHzOVxkCRYUFBuQV6PpwsGfJqVLB8xeFe9dUdVeBJ FQP9Phl2BsUPGsSFVTTn8+KaV6MQR3uSCiUrg0CaU1VndkROQHTj== ID Date Data Source [id number] 05/11/2019 08:42:43 AM [facility] Name Value Range Interpretation Code Description Data Varsha rce(s) Supporting Document(s) Glucose [Mass/volume] in Capillary blood by Glucometer 155 mg/dL 70- 140 [facility] ID Date Data Source [id number] 05/11/2019 08:42:[address] [facility] Value Range Interpretation Code Description Data Varsha rce(s) Supporting Document(s) Glucose [Mass/volume] in Capillary blood by Glucometer 71 mg/dL 70- 140 [facility] ID Date Data Source [id number] 05/11/2019 07:06:10 AM [facility] Name Value Range Interpretation Code Description Data Varsha rce(s) Supporting Document(s) Glucose [Mass/volume] in Capillary blood by Glucometer 152 mg/dL 70- 140 [facility] ID Date Data Source [id number] 05/11/2019 06:13:[address] [facility] Value Range Interpretation Code Description Data Varsha rce(s) Supporting Document(s) Glucose [Mass/volume] in Capillary blood by Glucometer 152 mg/dL 70- 140 [facility] ID Date Data Source [id number] 05/11/2019 05:49:23 AM [facility] XR CHEST FRONTAL ONLY [id number] RESULTI nterpreted by:[facility]: Exam: XR Chest, 1 View Exam date and time: 05/11/2019 5:27 AM Age: 43 years old Clinical indication: Other: Effusions TECHNIQUE: Imaging protocol: XR of the chest Views: 1 view. COMPARISON: CR XR CHEST FRONTAL ONLY [id number] PORTABLE 05/10/2019 2:06 PM FINDINGS: Tubes, catheters and devices: Stable right IJ approach [place]-Bear catheter, left chest tube and mediastinal drains. Interval removal of endotracheal tube. Lungs: Left basilar atelectasis. Pleural space: No discernible pneumothorax or large pleural effusion. Heart/Mediastinum: Stable cardiac silhouette. Bones/joints: Intact median sternotomy wires. Partially visualized gaseous distension of stomach.IMPRESSION: No discernible pneumothorax or large pleural effusion. Left basilar atelectasis. THIS DOCUMENT HAS BEEN ELECTRONICALLY SIGNED BY FREDA CANTOR MDThis document has been electronically signed by Freda Cantor MD on 05/11/2019 5:49 AM Name Value Range Interpretation Code Description Data Varsha rce(s) Supporting Document(s) ID Date Data Source [id number] 05/11/2019 05:05:[address] [facility] Value Range Interpretation Code Description Data Varsha rce(s) Supporting Document(s) Glucose [Mass/volume] in Capillary blood by Glucometer 156 mg/dL 70- 140 [facility] ID Date Data Source [id number] 05/11/2019 04:15:[address] [facility] Value Range Interpretation Code Description Data Varsha rce(s) Supporting Document(s) pH of Arterial blood 7.37 7.38-7.44 L [facility] Carbon dioxide [Partial pressure] in Arterial blood 38 mm[Hg] 35-40 [facility] Oxygen [Partial pressure] in Arterial blood 108 mmHg 95-100 [facility] Oxygen saturation in Arterial blood 99 % 94-100 [facility] Base excess in Arterial blood by calculation [facility] Carbon dioxide, total [Moles/volume] in Arterial blood 22 mmol/L [facility] Oxygen/Inspired gas setting [Volume Fraction] Ventilator [facility] ID Date Data Source [id number] 05/11/2019 04:08:23 AM [facility] Name Value Range Interpretation Code Description Data Varsha rce(s) Supporting Document(s) Glucose [Mass/volume] in Capillary blood by Glucometer 158 mg/dL 70- 140 [facility] ID Date Data Source [id number] 05/11/2019 03:01:[address] [facility] Value Range Interpretation Code Description Data Varsha rce(s) Supporting Document(s) Glucose [Mass/volume] in Capillary blood by Glucometer 182 mg/dL 70- 140 [facility] ID Date Data Source [id number] 05/11/2019 03:07:42 AM [facility] Name Value Range Interpretation Code Description Data Varsha rce(s) Supporting Document(s) Leukocytes [#/volume] in Blood by Automated count 11.4 10*3/uL 4-10 [facility] Erythrocytes [#/volume] in Blood by Automated count 4.64 10*6/uL 4.6- 6.1 [facility] Hemoglobin [Mass/volume] in Blood 13.8 g/dL 13.5-18 [facility] Hematocrit [Volume Fraction] of Blood by Automated count 40.5 % 4 1-53 L [facility] Erythrocyte mean corpuscular volume [Entitic volume] by Auto mated count 87.3 fL 80-96 [facility] Erythrocyte mean corpuscular hemoglobin [Entitic mass] by Automated count 29.7 pg 27-33 [facility] Erythrocyte mean corpuscular hemoglobin concentration [Mass/volume] by Automated count 34.0 g/dL 32.0-[facility] distribution width [Ratio] by Automated count 13.1 % 11.5-14.5 [facility] Platelets [#/volume] in Blood by Automated count 137 10*3/uL 150-400 L [facility] ID Date Data Source [id number] 05/11/2019 03:32:06 AM EST [facility] Name Value Range Interpretation Code Description Data Varsha rce(s) Supporting Document(s) Albumin [Mass/volume] in Serum or Plasma by Bromocresol green (BCG) dye binding method 4.0 g/dL 3.5-5.2 [facility] Bilirubin.total [Mass/volume] in Serum or Plasma 1.5 mg/dL <1.2 [facility] Calcium [Mass/volume] in Serum or Plasma 7.8 mg/dL 8.6-10.0 L [facility] Chloride [Moles/volume] in Serum or Plasma 99 mmol/L 98-107 [facility] Creatinine [Mass/volume] in Serum or Plasma 1.10 mg/dL 0.70-1.20 [facility] Glucose [Mass/volume] in Serum or Plasma 181 mg/dL 70-140 [facility] Alkaline phosphatase [Enzymatic activity/volume] in Serum or Plasma 59 U/L 40-129 [facility] Potassium [Moles/volume] in Serum or Plasma 5.3 mmol/L 3.4-5.1 [facility] Protein [Mass/volume] in Serum or Plasma 5.6 g/dL 6.4-8.3 L [facility] Sodium [Moles/volume] in Serum or Plasma 131 mmol/L 136-145 L [facility] Aspartate aminotransferase [Enzymatic activity/volume] in Serum or Plasma 60 U/L <40 [facility] Urea nitrogen [Mass/volume] in Serum or Plasma 20 mg/dL 6-20 [facility] Osmolality of Serum or Plasma by calculation 279 mosm/kg 275-300 [facility] Creatinine/Urea nitrogen [Mass Ratio] in Serum or Plasma 18 [facility] Bicarbonate [Moles/volume] in Serum 21 mmol/L 22-29 L [facility] Alanine aminotransferase [Enzymatic activity/volume] in Seru m or Plasma 21 U/L <41 [facility] Anion gap 3 in Serum or Plasma 11 mmol/L 8-15 [facility] Albumin/Globulin [Mass Ratio] in Serum or Plasma 2.5 [facility] Glomerular filtration rate/1.73 sq M pre dicted among non-blacks [Volume Rate/Area] in Serum or Plasma by Creatinine-based formula (MDRD) 81 mL/min/1.73m2 >60 [facility] Glomerular filtration rate/1.73 sq M pre dicted among blacks [Volume Rate/Area] in Serum or Plasma by Creatinine-based formula (MDRD) >60 [facility] ID Date Data Source [id number] 05/11/2019 03:32:[address] [facility] Value Range Interpretation Code Description Data Varsha rce(s) Supporting Document(s) Magnesium [Mass/volume] in Serum or Plasma 2.1 mg/dL 1.6-2.6 [facility] ID Date Data Source [id number] 05/11/2019 03:07:[address] [facility] Value Range Interpretation Code Description Data Varsha rce(s) Supporting Document(s) Calcium.ionized [Moles/volume] in Arterial blood 1.08 mmol/L 1.13-1.3 2 L [facility] ID Date Data Source [id number] 05/11/2019 02:44:[address] [facility] Value Range Interpretation Code Description Data Varsha rce(s) Supporting Document(s) Glucose [Mass/volume] in Capillary blood by Glucometer 163 mg/dL 70- 140 [facility] ID Date Data Source [id number] 05/11/2019 12:02:[address] [facility] Value Range Interpretation Code Description Data Varsha rce(s) Supporting Document(s) Glucose [Mass/volume] in Capillary blood by Glucometer 154 mg/dL 70- 140 [facility] ID Date Data Source [id number] 05/10/2019 10:13:[address] [facility] Value Range Interpretation Code Description Data Varsha rce(s) Supporting Document(s) Glucose [Mass/volume] in Capillary blood by Glucometer 142 mg/dL 70- 140 [facility] ID Date Data Source [id number] 05/10/2019 08:05:[address] [facility] Value Range Interpretation Code Description Data Varsha rce(s) Supporting Document(s) Leukocytes [#/volume] in Blood by Automated count 13.2 10*3/uL 4-10 [facility] Erythrocytes [#/volume] in Blood by Automated count 4.75 10*6/uL 4.6- 6.1 [facility] Hemoglobin [Mass/volume] in Blood 14.2 g/dL 13.5-18 [facility] Hematocrit [Volume Fraction] of Blood by Automated count 40.9 % 4 1-53 L [facility] Erythrocyte mean corpuscular volume [Entitic volume] by Auto mated count 86.1 fL 80-96 [facility] Erythrocyte mean corpuscular hemoglobin [Entitic mass] by Automated count 29.9 pg 27-33 [facility] Erythrocyte mean corpuscular hemoglobin concentration [Mass/volume] by Automated count 34.7 g/dL 32.0-36.0 [facility] E[facility] distribution width [Ratio] by Automated count 13.3 % 11.5-14.5 [facility] Platelets [#/volume] in Blood by Automated count 135 10*3/uL 150-400 L [facility] ID Date Data Source [id number] 05/10/2019 08:24:[address] [facility] Value Range Interpretation Code Description Data Varsha rce(s) Supporting Document(s) Potassium [Moles/volume] in Serum or Plasma 5.5 mmol/L 3.4-5.1 H [facility] ID Date Data Source [id number] 05/10/2019 08:24:[address] [facility] Value Range Interpretation Code Description Data Varsha rce(s) Supporting Document(s) Magnesium [Mass/volume] in Serum or Plasma 2.1 mg/dL 1.6-2.6 [facility] ID Date Data Source [id number] 05/10/2019 08:05:[address] [facility] Value Range Interpretation Code Description Data Varsha rce(s) Supporting Document(s) Glucose [Mass/volume] in Capillary blood by Glucometer 140 mg/dL 70- 140 [facility] ID Date Data Source [id number] 05/10/2019 06:31:[address] [facility] Value Range Interpretation Code Description Data Varsha rce(s) Supporting Document(s) Glucose [Mass/volume] in Capillary blood by Glucometer 109 mg/dL 70- 140 [facility] ID Date Data Source [id number] 05/10/2019 04:13:[address] [facility] Value Range Interpretation Code Description Data Varsha rce(s) Supporting Document(s) Glucose [Mass/volume] in Capillary blood by Glucometer 111 mg/dL 70- 140 [facility] ID Date Data Source [id number] 05/10/2019 03:46:02 PM [facility] Name Value Range Interpretation Code Description Data Varsha rce(s) Supporting Document(s) pH of Arterial blood 7.38 7.38-7.44 [facility] Carbon dioxide [Partial pressure] in Arterial blood 40 mm[Hg] 35-40 [facility] Oxygen [Partial pressure] in Arterial blood 171 mmHg 95-100 H [facility] Oxygen saturation in Arterial blood 99 % 94-100 [facility] Base excess in Arterial blood by calculation [facility] Carbon dioxide, total [Moles/volume] in Arterial blood 24 mmol/L [facility] Oxygen/Inspired gas setting [Volume Fraction] Ventilator 0.40 [facility] ID Date Data Source [id number] 05/10/2019 03:23:53 PM [facility] XR CHEST FRONTAL ONLY [id number] RESULTI nterpreted by:Julia Adams MDIndication: CVC, ETT, [place], OG tube, CT placement.Technique: Portable frontal radiograph of chest is obtained. No prior similar studies are available for comparison.Findings and impression: Distal end of the endotracheal tube is above the level of the clavicles, 7.8 cm above benjamin. Further advancement of the endotracheal tube is recommended. [place]-Bear catheter is noted via right IJ approach with the distal tip in right pulmonary artery at the hilum. Mediastinal drains and left chest tube are noted. Orogastric tube is not seen. Median sternotomy wires are noted. Cardiomediastinal contour is within normal limits. Lungs are clear. No pleural effusion is noted. No pneumothorax is noted.This document has been electronically signed by Julia Adams MD on 05/10/2019 3:21 PM Name Value Range Interpretation Code Description Data Varsha rce(s) Supporting Document(s) ID Date Data Source [id number] 05/10/2019 01:55:32 PM [facility] Name Value Range Interpretation Code Description Data Varsha rce(s) Supporting Document(s) EKG [facility] TGGDKy0uSvOHDsQjb6SgWeQbZKUaZH4aiym5A4O2gLWaX3IhiOBmd5vhV1FbC9YyXCUpMDNTDE3YuEFk jb2 [file] [employer]+rYXPt+rym9Nbo2BMksyGaH/FCYwcnF3dckXJThqyiWn5wbIh3hQEivPrueuGX0P/oJgRcx5KkykQ2 [file] W2foDtQ8+OM0QKlk9ODpuE8zT/7vTUwFz0H46zxwU0x7rbr457vbbORyfJ5qZioq/uhu1Va7PV3/dietitian assistant/ [file] H8706vVwGj78TW/30p7PEz/y8+/y8f54A3b6l9/fv3 l8//DlOrh2oqp6q9wwj6yvq7++oNfp6uDDA6/fvf/m1dcPq/4N86z0Re/rNV80jw2uK//Ib38f4ZJhk6 89C/E5x1qOvy4++kSn0rjd2sz62ufeP//0b6Z07uw/ffnHn/7993/6w4+/e/m3/3r5/i7DT0U1e/3q63 98+arca7n34sPkD5+/gehCv5p3k//e0kjeZwKQLd8g 60S51d93wjmoj/ev213YTg8/Wf0Pf/jFn/tKl0rodC68F9+Dt+tmcozg4yc/O6sGLggg/2I87bTxdNzv q/TI61medV0Y+zJ5+xXJwRM2E89+wiTH1MEA8Cw5mdR++O8//kbU23Tgo2e9+vCrr1//5uXLV+8/eYI7 vuN5E4f7t+c/pV0/NTf/fZ+Gy1psuLmA2eZfPv6ZP6 ml1xm3D1/6yz+9/OmHv/z4ybc/XtMvEbTn+aE/2IYtpbCL0/Dzbz/w2/cvv//pLz/+6X//8B9/4+uPQT /9+rj3w6b+/NsP+/X7Dy+/+8/Hvf/+jz/9/Cm9eIvdfY34cp6+/fEXv/10Eg2zsZq13/0XD4//k29/mi 4CUj4/4N738wzy7lzMrLJu/XvV5Vrzp81/9vHlh//z 45//swOuy754s5e359zrmIbc6Tm+/Con/qSnosus3vu++eE/Crw33jF02Y//+dsf/th3W6653j1yE4/5 +59+/f17l4NcG//21/97W/D9H//9q32u6iCDx53nhWsxQ/6168lsot8rolgn+R0ff/zt//mr11330DFt j8Zm/RCIjyf2biY57Z//8qh0v/v80fV+fHn37V//6v QjmbAxftPI975q0DZ+O59v5P//C76dW43M4Fb/+8P/+XYASd949r/jeqriEvvismzuW40pSocYW5u63x fPn6/Xh6vAN+7jpfL6/EV9QvOpg2r61lUQ9046+/zkq33vCu+vods4/w94Bmg/JkZjJRJ4scLyzYwmep NsXrcSFGonFJHqRmc4RS3VxREuBIGoH4I4HDFfkd2l HNRnAJDcdPMyAkXlTEBZXE7IvLUcOY3TIYi4PMKpYYTbPmGgPYZiweP4UUQxRMUoFXTiE5GggmAiiHZd IDAgUj4+IB3yh3NbLxQjNHSeWui7KL7ThELeAO8RbGIxxW0oetSaY209utGcPMZuXiemt3DnAIeuXLOF VX2KVCF8CXS6EUMfQb1+UV2cs4GoWeYfXYBmNoz3AR 9TbCGjy8QmGG4EU0GdRVRzKXWMEKY4y3XzNWHnlmbhqhwvA4VeOMY8lE8rISQ8GFIcHAamODPtNUEfGh TaMNQdSOgfBQRoWGBpURFiEGNeOBh9yVLwSV3OA4XrLQLvWHSRWTXiagVqHp9gPGhIW34KG79PLAVMO6 DKTAQmPkeiWQS2VLwxC0K2NnvxW1HaJI9DP4KsLQQt PHAFPFXheyEqRW6LifPyvI3oORqCKECLMAaMMZxoYnG4e06omhDVTYAfFXQiVRfbNXBkIKVnNDPyNLGi BWGsRJXtSAGaXA2QT8PeTJAaOIVTZZP1s2ZcBOSlxppyrxujCi1ykoTePns+MbunOBIws7BqTBffO6U2 aMAvX6QqI1RlTR4HdYTfWUleCHUgZRXmANMiM389eg QgMT4+LI4bk6LtHbplEWZWDRFuVWYpLSGvLLI9YxNkXUTxLEZyJYLsOiJ4QcGkLcYYTMDqCCP6BRY2Br UoVDKjCMYjLUdaZSNfWTC3EnQ9ZLWqIOAxDL5rUyJbBUOuXwLvRazwKJCpYEMrosZEBKAdDNPaWNMhGI L2OSIqIZYwOTtzJBOhKWRzMSH5ZOTrJRYcBA4nNpWl FWOjJRMuLbbbOJYvPSKadyZODHVkSUQuYVL5OcPhIWAjDXKsCLgsVQBwVWWxJsj3YNWyWZMwNC7jSkKu KTSxLEX1YEczOPUqZLZgafKHKRTsVQKeEFAoWvNcCNPxBFWbTDryWEXfZZXmLaEzDUNlFWVzGM5fKmUk MTXuYQX2MNPdZCExBOIafcUPLHOpTRLkYPi8VVIyVI RcIGGuOJnpKMWeJFWhJCU5YJZsAMXgQF5nAsTqZKEmMXNwPJSxSMLnYJTaulHANEJfVSKiJPN2SNRrVT VtBFKpILepREJoFULlUlc6TWEeDCCaTS6uXlAyXHWkCPI3HCQdWMNpWNLjwbUEBBKyLYJ6WRTfEBHuGE ItZDUzEEkaZAGyLCNaTwN5HVFjDMIpDH7hAgVzAIJq SAA8WnOmPDBtNAZbvsHWRYTiCFWgZGK0QdTlSRWoLSOzABveXPNlTCRsDTApDWD5BLO1SMEwDuUpEVkq UTREPKlHA2JftdWpZkKQM2wxMg0dMrTcJMMEB5Hck6EvWQBlLTUDCh8+PmN6OKV4uVJzHxh0ACaxIrdh JUVPRg== ID Date Data Source [id number] 05/10/2019 04:13:31 PM [facility] Name Value Range Interpretation Code Description Data Varsha rce(s) Supporting Document(s) Glucose [Mass/volume] in Capillary blood by Glucometer 106 mg/dL 70- 140 [facility] ID Date Data Source [id number] 05/10/2019 02:01:26 PM [facility] Name Value Range Interpretation Code Description Data Varsha rce(s) Supporting Document(s) Leukocytes [#/volume] in Blood by Automated count 10.3 10*3/uL 4-10 H [facility] Erythrocytes [#/volume] in Blood by Automated count 4.50 10*6/uL 4.6- 6.1 L [facility] Hemoglobin [Mass/volume] in Blood 13.7 g/dL 13.5-18 [facility] Hematocrit [Volume Fraction] of Blood by Automated count 38.9 % 4 1-53 L [facility] Erythrocyte mean corpuscular volume [Entitic volume] by Auto mated count 86.3 fL 80-96 [facility] Erythrocyte mean corpuscular hemoglobin [Entitic mass] by Automated count 30.5 pg 27-33 [facility] Erythrocyte mean corpuscular hemoglobin concentration [Mass/volume] by Autom[facility] 35.3 g[facility] width [Ratio] by Automated count 13.2 % 11.5-14.5 [facility] Platelets [#/volume] in Blood by Automated count 96 10*3/uL 150-400 [facility] ID Date Data Source [id number] 05/10/2019 02:22:[address] [facility] Value Range Interpretation Code Description Data Varsha rce(s) Supporting Document(s) Prothrombin time (PT) 16.2 s 12.5-14.9 H [facility] INR in Platelet poor plasma by Coagulation assay 1.26 [facility] Routine intensity oral anticoagulation I NR is typically 2.0-3.0. Target INR must be clinically individualized. ID Date Data Source [id number] 05/10/2019 02:22:[address] [facility] Value Range Interpretation Code Description Data Varsha rce(s) Supporting Document(s) aPTT in Platelet poor plasma by Coagulation assay 27.0 s 24.0-34. 0 [facility] ID Date Data Source [id number] 05/10/2019 02:28:[address] [facility] Value Range Interpretation Code Description Data Varsha rce(s) Supporting Document(s) Bicarbonate [Moles/volume] in Serum 23 mmol/L 22-29 [facility] Chloride [Moles/volume] in Serum or Plasma 105 mmol/L 98-107 [facility] Creatinine [Mass/volume] in Serum or Plasma 1.03 mg/dL 0.70-1.20 [facility] Glucose [Mass/volume] in Serum or Plasma 117 mg/dL 70-140 [facility] Potassium [Moles/volume] in Serum or Plasma 4.1 mmol/L 3.4-5.1 [facility] Sodium [Moles/volume] in Serum or Plasma 140 mmol/L 136-145 [facility] Urea nitrogen [Mass/volume] in Serum or Plasma 18 mg/dL 6-20 [facility] Anion gap 3 in Serum or Plasma 12 mmol/L 8-15 [facility] Osmolality of Serum or Plasma by calculation 293 mosm/kg 275-300 [facility] Creatinine/Urea nitrogen [Mass Ratio] in Serum or Plasma 17 [facility] Calcium [Mass/volume] in Serum or Plasma 8.7 mg/dL 8.6-10.0 [facility] Glomerular filtration rate/1.73 sq M pre dicted among non-blacks [Volume Rate/Area] in Serum or Plasma by Creatinine-based formula (MDRD) 88 mL/min/1.73m2 >60 [facility] Glomerular filtration rate/1.73 sq M pre dicted among blacks [Volume Rate/Area] in Serum or Plasma by Creatinine-based formula (MDRD) >60 [facility] ID Date Data Source [id number] 05/10/2019 02:28:02 PM [facility] Name Value Range Interpretation Code Description Data Varsha rce(s) Supporting Document(s) Magnesium [Mass/volume] in Serum or Plasma 2.4 mg/dL 1.6-2.6 [facility] ID Date Data Source [id number] 05/10/2019 02:17:[address] [facility] Value Range Interpretation Code Description Data Varsha rce(s) Supporting Document(s) Calcium.ionized [Moles/volume] in Arterial blood 1.17 mmol/L 1.13-1.3 2 [facility] ID Date Data Source [id number] 05/10/2019 01:59:16 PM [facility] Name Value Range Interpretation Code Description Data Varsha rce(s) Supporting Document(s) pH of Arterial blood 7.42 7.38-7.44 [facility] Carbon dioxide [Partial pressure] in Arterial blood 38 mm[Hg] 35-40 [facility] Oxygen [Partial pressure] in Arterial blood 233 mmHg 95-100 H [facility] Oxygen saturation in Arterial blood 94-100 [facility] Base excess in Arterial blood by calculation [facility] Carbon dioxide, total [Moles/volume] in Arterial blood 25 mmol/L [facility] Oxygen/Inspired gas setting [Volume Fraction] Ventilator 0.60 [facility] ID Date Data Source [id number] 05/14/2019 03:53:18 PM [facility] Name Value Range Interpretation Code Description Data Varsha rce(s) Supporting Document(s) Clotting time.intrinsic coagulation syst em activated of Blood by Thromboelastography 4.9 min 5.0-10.0 [facility] Clot formation.intrinsic coagulation sys tem activated [Time] in Blood by Thromboelastography 2.8 min 1.0-3.0 [facility] Clot angle in Blood by Thromboelastography 60.7 deg 53.0-72.0 [facility] Maximum clot firmness [Length] in Blood by Thromboelastograp hy 49.4 mm 50.0-71.0 [facility] Clot Lysis [Length fraction] in Blood by Thromboelastography --30 minutes post maximum clot amplitude 0.0 % 0-7.5 [facility] Coagulation specialist review of results [facility] PATHOLOGIST:NEGRITA SILVERMAN M.D. ID Date Data Source [id number] 05/10/2019 01:00:21 PM [facility] Name Value Range Interpretation Code Description Data Varsha rce(s) Supporting Document(s) Leukocytes [#/volume] in Blood by Automated count 11.8 10*3/uL 4-10 H [facility] Erythrocytes [#/volume] in Blood by Automated count 4.51 10*6/uL 4.6- 6.1 [facility] Hemoglobin [Mass/volume] in Blood 13.7 g/dL 13.5-18 [facility] Hematocrit [Volume Fraction] of Blood by Automated count 38.4 % 4 1-53 [facility] Erythrocyte mean corpuscular volume [Entitic volume] by Auto mated count 85.2 fL 80-96 [facility] Erythrocyte mean corpuscular hemoglobin [Entitic mass] by Automated count 30.3 pg 27-33 [facility] Erythrocyte mean corpuscular hemoglobin concentration [Mass/volume] by Automated count 35.5 g/[facility].0[facility] width [Ratio] by Automated count 13.3 % 11.5-14.5 [facility] Platelets [#/volume] in Blood by Automated count 102 10*3/uL 150-400 [facility] Differential cell count method - Blood [facility] Neutrophils/100 leukocytes in Blood by Automated count 84 % [facility] Lymphocytes/100 leukocytes in Blood by Automated count 13 % [facility] Monocytes/100 leukocytes in Blood by Automated count 3 % [facility] Eosinophils/100 leukocytes in Blood by Automated count 0 % [facility] Basophils/100 leukocytes in Blood by Automated count 0 % [facility] Neutrophils [#/volume] in Blood by Automated count 9.85 10*3/uL 1.8-7 .0 H [facility] Lymphocytes [#/volume] in Blood by Automated count 1.49 10*3/uL 1.2-4 .0 [facility] Monocytes [#/volume] in Blood by Automated count 0.37 10*3/uL 0-0.8 [facility] Eosinophils [#/volume] in Blood by Automated count 0.05 10*3/uL 0-0.5 [facility] Basophils [#/volume] in Blood by Automated count 0.04 10*3/uL 0-0.2 [facility] Nucleated erythrocytes/100 leukocytes [Ratio] in Blood by Automated count 0 /100{WBCs} 0-0 [facility] ID Date Data Source [id number] 05/10/2019 01:32:37 PM [facility] Name Value Range Interpretation Code Description Data Varsha rce(s) Supporting Document(s) Prothrombin time (PT) 17.0 s 12.5-14.9 H [facility] INR in Platelet poor plasma by Coagulation assay 1.34 [facility] Routine intensity oral anticoagulation I NR is typically 2.0-3.0. Target INR must be clinically individualized. ID Date Data Source [id number] 05/10/2019 01:52:[address] [facility] Value Range Interpretation Code Description Data Varsha rce(s) Supporting Document(s) aPTT in Platelet poor plasma by Coagulation assay 24.8 s 24.0-34. 0 [facility] ID Date Data Source [id number] 05/10/2019 12:30:[address] [facility] Value Range Interpretation Code Description Data Varsha rce(s) Supporting Document(s) pH of Arterial blood 7.42 7.38-7.44 [facility] Carbon dioxide [Partial pressure] in Arterial blood 39 mmHg 35-40 [facility] Oxygen [Partial pressure] in Arterial blood 436 mmHg 95-100 H [facility] Base excess standard in Arterial blood by calculation 1 mmol/L [facility] Oxygen saturation Calculated from oxygen partial press ure in Arterial blood 100 % 94-100 [facility] Bicarbonate [Moles/volume] in Arterial blood 27 mmol/L [facility] Sodium [Moles/volume] in Blood 141 mmol/L 136-145 [facility] Potassium [Moles/volume] in Blood 3.4 mmol/L 3.4-5.1 [facility] Calcium.ionized [Moles/volume] in Blood 0.95 mmol/L 1.13-1.32 [facility] Glucose [Mass/volume] in Blood 161 mg/dL 70-140 H [facility] Hematocrit [Volume Fraction] of Blood 33 % 41-53 [facility] Hemoglobin [Mass/volume] in Blood by calculation 11.2 g/dL 13.5-18.0 [facility] ID Date Data Source [id number] 05/10/2019 12:28:12 PM [facility] Name Value Range Interpretation Code Description Data Varsha rce(s) Supporting Document(s) Kaolin activated time [Units/volume] in Blood 103 s [facility] ID Date Data Source [id number] 05/10/2019 12:05:44 PM [facility] Name Value Range Interpretation Code Description Data Varsha rce(s) Supporting Document(s) pH of Arterial blood 7.44 7.38-7.44 [facility] Carbon dioxide [Partial pressure] in Arterial blood 38 mmHg 35-40 [facility] Oxygen [Partial pressure] in Arterial blood 324 mmHg 95-100 H [facility] Base excess standard in Arterial blood by calculation 1 mmol/L [facility] Oxygen saturation Calculated from oxygen partial press ure in Arterial blood 100 % 94-100 [facility] Bicarbonate [Moles/volume] in Arterial blood 27 mmol/L [facility] Sodium [Moles/volume] in Blood 137 mmol/L 136-145 [facility] Potassium [Moles/volume] in Blood 4.7 mmol/L 3.4-5.1 [facility] Calcium.ionized [Moles/volume] in Blood 1.15 mmol/L 1.13-1.32 [facility] Glucose [Mass/volume] in Blood 169 mg/dL 70-140 [facility] Hematocrit [Volume Fraction] of Blood 39 % 41-53 L [facility] Hemoglobin [Mass/volume] in Blood by calculation 13.3 g/dL 13.5-18.0 [facility] ID Date Data Source [id number] 05/10/2019 12:09:41 PM [facility] Name Value Range Interpretation Code Description Data Varsha rce(s) Supporting Document(s) Kaolin activated time [Units/volume] in Blood 450 s [facility] ID Date Data Source [id number] 05/10/2019 11:33:[address] [facility] Value Range Interpretation Code Description Data Varsha rce(s) Supporting Document(s) pH of Arterial blood 7.40 7.38-7.44 [facility] Carbon dioxide [Partial pressure] in Arterial blood 44 mmHg 35-40 H [facility] Oxygen [Partial pressure] in Arterial blood 439 mmHg 95-100 [facility] Base excess standard in Arterial blood by calculation 2 mmol/L [facility] Oxygen saturation Calculated from oxygen partial press ure in Arterial blood 100 % 94-100 [facility] Bicarbonate [Moles/volume] in Arterial blood 29 mmol/L [facility] Sodium [Moles/volume] in Blood 136 mmol/L 136-145 [facility] Potassium [Moles/volume] in Blood 5.0 mmol/L 3.4-5.1 [facility] Calcium.ionized [Moles/volume] in Blood 1.01 mmol/L 1.13-1.32 [facility] Glucose [Mass/volume] in Blood 185 mg/dL 70-140 [facility] Hematocrit [Volume Fraction] of Blood 37 % 41-53 [facility] Hemoglobin [Mass/volume] in Blood by calculation 12.6 g/dL 13.5-18.0 [facility] ID Date Data Source [id number] 05/10/2019 11:37:[address] [facility] Value Range Interpretation Code Description Data Varsha rce(s) Supporting Document(s) Kaolin activated time [Units/volume] in Blood 450 [facility] ID Date Data Source [id number] 05/10/2019 11:07:[address] [facility] Value Range Interpretation Code Description Data Varsha rce(s) Supporting Document(s) pH of Arterial blood 7.46 7.38-7.44 H [facility] Carbon dioxide [Partial pressure] in Arterial blood 39 mmHg 35-40 [facility] Oxygen [Partial pressure] in Arterial blood 420 mmHg 95-100 H [facility] Base excess standard in Arterial blood by calculation 3 mmol/L [facility] Oxygen saturation Calculated from oxygen partial press ure in Arterial blood 100 % 94-100 [facility] Bicarbonate [Moles/volume] in Arterial blood 28 mmol/L [facility] Sodium [Moles/volume] in Blood 136 mmol/L 136-145 [facility] Potassium [Moles/volume] in Blood 5.1 mmol/L 3.4-5.1 [facility] Calcium.ionized [Moles/volume] in Blood 1.01 mmol/L 1.13-1.32 L [facility] Glucose [Mass/volume] in Blood 179 mg/dL 70-140 H [facility] Hematocrit [Volume Fraction] of Blood 36 % 41-53 L [facility] Hemoglobin [Mass/volume] in Blood by calculation 12.2 g/dL 13.5-18.0 [facility] ID Date Data Source [id number] 05/10/2019 11:06:47 AM [facility] Name Value Range Interpretation Code Description Data Varsha rce(s) Supporting Document(s) Kaolin activated time [Units/volume] in Blood 389 s [facility] ID Date Data Source [id number] 05/10/2019 10:39:43 AM [facility] Name Value Range Interpretation Code Description Data Varsha rce(s) Supporting Document(s) pH of Arterial blood 7.39 7.38-7.44 [facility] Carbon dioxide [Partial pressure] in Arterial blood 46 mmHg 35-40 H [facility] Oxygen [Partial pressure] in Arterial blood 380 mmHg 95-100 H [facility] Base excess standard in Arterial blood by calculation 2 mmol/L [facility] Oxygen saturation Calculated from oxygen partial press ure in Arterial blood 100 % 94-100 [facility] Bicarbonate [Moles/volume] in Arterial blood 29 mmol/L [facility] Sodium [Moles/volume] in Blood 135 mmol/L 136-145 L [facility] Potassium [Moles/volume] in Blood 5.2 mmol/L 3.4-5.1 [facility] Calcium.ionized [Moles/volume] in Blood 1.02 mmol/L 1.13-1.32 L [facility] Glucose [Mass/volume] in Blood 171 mg/dL 70-140 H [facility] Hematocrit [Volume Fraction] of Blood 36 % 41-53 [facility] Hemoglobin [Mass/volume] in Blood by calculation 12.2 g/dL 13.5-18.0 [facility] ID Date Data Source [id number] 05/10/2019 10:41:[address] [facility] Value Range Interpretation Code Description Data Varsha rce(s) Supporting Document(s) Kaolin activated time [Units/volume] in Blood 494 s [facility] ID Date Data Source [id number] 05/10/2019 10:16:[address] [facility] Value Range Interpretation Code Description Data Varsha rce(s) Supporting Document(s) pH of Arterial blood 7.42 7.38-7.44 [facility] Carbon dioxide [Partial pressure] in Arterial blood 41 mmHg 35-40 H [facility] Oxygen [Partial pressure] in Arterial blood 436 mmHg 95-100 [facility] Base excess standard in Arterial blood by calculation 2 mmol/L [facility] Oxygen saturation Calculated from oxygen partial press ure in Arterial blood 100 % 94-100 [facility] Bicarbonate [Moles/volume] in Arterial blood 28 mmol/L [facility] Sodium [Moles/volume] in Blood 135 mmol/L 136-145 [facility] Potassium [Moles/volume] in Blood 4.8 mmol/L 3.4-5.1 [facility] Calcium.ionized [Moles/volume] in Blood 0.95 mmol/L 1.13-1.32 [facility] Glucose [Mass/volume] in Blood 179 mg/dL 70-140 [facility] Hematocrit [Volume Fraction] of Blood 35 % 41-53 [facility] Hemoglobin [Mass/volume] in Blood by calculation 11.9 g/dL 13.5-18.0 [facility] ID Date Data Source [id number] 05/10/2019 10:18:[address] [facility] Value Range Interpretation Code Description Data Varsha rce(s) Supporting Document(s) Kaolin activated time [Units/volume] in Blood 604 [facility] ID Date Data Source [id number] 05/10/2019 10:16:[address] [facility] Value Range Interpretation Code Description Data Varsha rce(s) Supporting Document(s) pH of Venous blood 7.39 7.36-7.41 [facility] Carbon dioxide [Partial pressure] in Venous blood 41 mmHg 40-45 [facility] Oxygen [Partial pressure] in Venous blood 41 mmHg [facility] Base excess standard in Venous blood by calculation 0 mmol/L [facility] Oxygen saturation Calculated from oxygen partial pressure in Venous blood 75 % 60-85 [facility] Bicarbonate [Moles/volume] in Venous blood 26 mmol/L [facility] Sodium [Moles/volume] in Blood 135 mmol/L 136-145 L [facility] Potassium [Moles/volume] in Blood 5.0 mmol/L 3.4-5.1 [facility] Calcium.ionized [Moles/volume] in Blood 0.94 mmol/L 1.13-1.32 L [facility] Glucose [Mass/volume] in Blood 178 mg/dL 70-140 H [facility] Hematocrit [Volume Fraction] of Blood 31 % 41-53 L [facility] Hemoglobin [Mass/volume] in Blood by calculation 10.5 g/dL 13.5-18.0 [facility] ID Date Data Source [id number] 05/10/2019 10:18:43 AM [facility] Name Value Range Interpretation Code Description Data Varsha rce(s) Supporting Document(s) Kaolin activated time [Units/volume] in Blood 703 s [facility] ID Date Data Source [id number] 05/10/2019 09:51:12 AM [facility] Name Value Range Interpretation Code Description Data Varsha rce(s) Supporting Document(s) pH of Venous blood 7.35 7.36-7.41 [facility] Carbon dioxide [Partial pressure] in Venous blood 46 mmHg 40-45 H [facility] Oxygen [Partial pressure] in Venous blood 57 mmHg [facility] Base excess standard in Venous blood by calculation 0 mmol/L [facility] Oxygen saturation Calculated from oxygen partial pressure in Venous blood 88 % 60-85 H [facility] Bicarbonate [Moles/volume] in Venous blood 27 mmol/L [facility] Sodium [Moles/volume] in Blood 138 mmol/L 136-145 [facility] Potassium [Moles/volume] in Blood 4.5 mmol/L 3.4-5.1 [facility] Calcium.ionized [Moles/volume] in Blood 1.12 mmol/L 1.13-1.32 L [facility] Glucose [Mass/volume] in Blood 108 mg/dL 70-140 [facility] Hematocrit [Volume Fraction] of Blood 38 % 41-53 L [facility] Hemoglobin [Mass/volume] in Blood by calculation 12.9 g/dL 13.5-18.0 L [facility] ID Date Data Source [id number] 05/10/2019 04:17:59 PM [facility] Name Value Range Interpretation Code Description Data Varsha rce(s) Supporting Document(s) Clotting time.intrinsic coagulation syst em activated of Blood by Thromboelastography 6.4 min 5.0-10.0 [facility] Clot formation.intrinsic coagulation sys tem activated [Time] in Blood by Thromboelastography 2.2 min 1.0-3.0 [facility] Clot angle in Blood by Thromboelastography 60.9 deg 53.0-72.0 [facility] Maximum clot firmness [Length] in Blood by Thromboelastograp hy 55.1 mm 50.0-71.0 [facility] Clot Lysis [Length fraction] in Blood by Thromboelastography --30 minutes post maximum clot amplitude 0.3 % 0-7.5 [facility] Coagulation specialist review of results [facility] PATHOLOGIST:NEGRITA SILVERMAN M.D. ID Date Data Source [id number] 05/10/2019 09:05:15 AM [facility] Name Value Range Interpretation Code Description Data Varsha rce(s) Supporting Document(s) pH of Arterial blood 7.42 7.38-7.44 [facility] Carbon dioxide [Partial pressure] in Arterial blood 43 mmHg 35-40 H [facility] Oxygen [Partial pressure] in Arterial blood 498 mmHg 95-100 H [facility] Base excess standard in Arterial blood by calculation 3 mmol/L [facility] Oxygen saturation Calculated from oxygen partial press ure in Arterial blood 100 % 94-100 [facility] Bicarbonate [Moles/volume] in Arterial blood 29 mmol/L [facility] Sodium [Moles/volume] in Blood 139 mmol/L 136-145 [facility] Potassium [Moles/volume] in Blood 4.1 mmol/L 3.4-5.1 [facility] Calcium.ionized [Moles/volume] in Blood 1.08 mmol/L 1.13-1.32 L [facility] Glucose [Mass/volume] in Blood 107 mg/dL 70-140 [facility] Hematocrit [Volume Fraction] of Blood 39 % 41-53 L [facility] Hemoglobin [Mass/volume] in Blood by calculation 13.3 g/dL 13.5-18.0 [facility] ID Date Data Source [id number] 05/10/2019 08:57:06 AM [facility] Name Value Range Interpretation Code Description Data Varsha rce(s) Supporting Document(s) pH of Venous blood 7.37 7.36-7.41 [facility] Carbon dioxide [Partial pressure] in Venous blood 47 mmHg 40-45 H [facility] Oxygen [Partial pressure] in Venous blood 42 mmHg [facility] Base excess standard in Venous blood by calculation 1 mmol/L [facility] Oxygen saturation Calculated from oxygen partial pressure in Venous blood 75 % 60-85 [facility] Bicarbonate [Moles/volume] in Venous blood 29 mmol/L [facility] Sodium [Moles/volume] in Blood 140 mmol/L 136-145 [facility] Potassium [Moles/volume] in Blood 4.2 mmol/L 3.4-5.1 [facility] Calcium.ionized [Moles/volume] in Blood 1.17 mmol/L 1.13-1.32 [facility] Glucose [Mass/volume] in Blood 97 mg/dL 70-140 [facility] Hematocrit [Volume Fraction] of Blood 41 % 41-53 [facility] Hemoglobin [Mass/volume] in Blood by calculation 13.9 g/dL 13.5-18.0 [facility] ID Date Data Source [id number] 05/10/2019 08:52:[address] [facility] Value Range Interpretation Code Description Data Varsha rce(s) Supporting Document(s) Kaolin activated time [Units/volume] in Blood 98 s [facility] ID Date Data Source [id number] 05/10/2019 07:38:[address] [facility] Value Range Interpretation Code Description Data Varsha rce(s) Supporting Document(s) History and Physical [facility] [id number] lbm [file] [id number] ID Date Data Source [id number] 05/11/2019 07:08:18 AM [facility] 05/12/2019 Name Value Range Interpretation Code Description Data Varsha rce(s) Supporting Document(s) ABO and Rh group [Type] in [facility] Performed at [facility] [place], [place] ID Date Data Source [id number] 05/10/2019 07:34:18 AM [facility] Name Value Range Interpretation Code Description Data Varsha rce(s) Supporting Document(s) ABO and Rh group [Type] in [facility] Blood bank comment [facility] ID Date Data Source [id number] 05/15/2019 04:35:00 PM [facility] Surgical Pathology ReportName: KYLE LOCKE BMRN: [id number] Number: [id number] Date: 05/10/2019 00:00Received Date: 05/10/2019 14:31Physician(s): Sherman GRULLON G RANDALLSpecimen(s) ReceivedA: Aortic valve leaflets and aortaClinical HistoryAscending aortic dissection.DiagnosisAORTIC VALVE LEAFLETS AND SEGMENT OF AORTA, EXCISION: MYXOIDDEGENERATION./pwsElectronically Signed By Mona Hopkins M.D., Attending Pathologist05/15/2019 16:35:41Unless 'gross- only' is specified, the final diagnosis is based on amicroscopic examination of new accounts banking representative sections of tissue.Gross DescriptionThe specimen is received in formalin labeled with the patient's name"Kyle Locke" and "aortic valve leaflets and aorta". It consists oftwo semi-lunar, bernard-white rubbery valves, 3.9 x 1.0 x 0.3 cm and 4.9 x 1.5x 0.3 cm. The cut surfaces are focally calcified. No vegetations aregrossly identified. Also received is a 4.5 x 3.5 x 0.4 cm irregulartan-white rubbery tissue fragment consistent with aorta. The cut surfacesare bernard-white fibrous and devoid of calcifications or hemorrhage. It Help Desk Technician sections are submitted in one cassette. CTC/hjgThis report may include one or more immunohistochemical stain results thatuse analyte specific reagents. All positive and negative controls havebeen reviewed by the attending pathologist and are satisfactory. The testswere developed and their performance characteristics determined by [facility] Pathology department. They have not been cleared or approved by the USFood and Drug Administration. The FDA has determined that such clearanceor approval is not necessary. Name Value Range Interpretation Code Description Data Varsha rce(s) Supporting Document(s) ID Date Data Source [id number] 05/02/2019 11:24:12 AM [facility] Name Value Range Interpretation Code Description Data Varsha rce(s) Supporting Document(s) Prothrombin time (PT) 13.6 s 12.5-14.9 [facility] INR in Platelet poor plasma by Coagulation assay 1.01 [facility] Routine intensity oral anticoagulation I NR is typically 2.0-3.0. Target INR must be clinically individualized. ID Date Data Source [id number] 05/02/2019 11:24:12 AM [facility] Name Value Range Interpretation Code Description Data Varsha rce(s) Supporting Document(s) aPTT in Platelet poor plasma by Coagulation assay 29.2 s 24.0-34. 0 [facility] ID Date Data Source [id number] 05/02/2019 11:43:15 AM [facility] Name Value Range Interpretation Code Description Data Varsha rce(s) Supporting Document(s) Albumin [Mass/volume] in Serum or Plasma by Bromocresol green (BCG) dye binding method 4.9 g/dL 3.5[facility]5.2 [facility] Bilirubin.total [Mass/volume] in Serum or Plasma 0.7 mg/dL <1.2 [facility] Calcium [Mass/volume] in Serum or Plasma 9.3 mg/dL 8.6-10.0 [facility] Chloride [Moles/volume] in Serum or Plasma 102 mmol/L 98-107 [facility] Creatinine [Mass/volume] in Serum or Plasma 1.00 mg/dL 0.70-1.20 [facility] Glucose [Mass/volume] in Serum or Plasma 89 mg/dL 70-140 [facility] Alkaline phosphatase [Enzymatic activity/volume] in Serum or Plasma 86 U/L 40-129 [facility] Potassium [Moles/volume] in Serum or Plasma 4.2 mmol/L 3.4-5.1 [facility] Protein [Mass/volume] in Serum or Plasma 7.1 g/dL 6.4-8.3 [facility] Sodium [Moles/volume] in Serum or Plasma 142 mmol/L 136-145 [facility] Aspartate aminotransferase [Enzymatic activity/volume] in Serum or Plasma 24 U/L <40 [facility] Urea nitrogen [Mass/volume] in Serum or Plasma 14 mg/dL 6-20 [facility] Osmolality of Serum or Plasma by calculation 294 mosm/kg 275-300 [facility] Creatinine/Urea nitrogen [Mass Ratio] in Serum or Plasma 14 [facility] Bicarbonate [Moles/volume] in Serum 29 mmol/L 22-29 [facility] Alanine aminotransferase [Enzymatic activity/volume] in Seru m or Plasma 34 U/L <41 [facility] Anion gap 3 in Serum or Plasma 11 mmol/L 8-15 [facility] Albumin/Globulin [Mass Ratio] in Serum or Plasma 2.2 [facility] Glomerular filtration rate/1.73 sq M pre dicted among non-blacks [Volume Rate/Area] in Serum or Plasma by Creatinine-based formula (MDRD) >6 0 [facility] Glomerular filtration rate/1.73 sq M pre dicted among blacks [Volume Rate/Area] in Serum or Plasma by Creatinine-based formula (MDRD) >60 [facility] ID Date Data Source [id number] 05/02/2019 12:44:43 PM [facility] Name Value Range Interpretation Code Description Data Varsha rce(s) Supporting Document(s) Leukocytes [#/volume] in Blood by Automated count 4.3 10*3/uL 4-10 [facility] Erythrocytes [#/volume] in Blood by Automated count 5.55 10*6/uL 4.6- 6.1 [facility] Hemoglobin [Mass/volume] in Blood 16.5 g/dL 13.5-18 [facility] Hematocrit [Volume Fraction] of Blood by Automated count 48.1 % 4 1-53 [facility] Erythrocyte mean corpuscular volume [Entitic volume] by Auto mated count 86.7 fL 80-96 [facility] Erythrocyte mean corpuscular hemoglobin [Entitic mass] by Automated count 29.7 pg 27-33 [facility] Erythrocyte mean corpuscular hemoglobin concentration [Mass/volume] by Automated count 34.2 g/dL 32.0-36.0 [facility] E[facility]th[facility] distribution width [Ratio] by Automated count 13.3 % 11.5-14.5 [facility] Platelets [#/volume] in Blood by Automated count 173 10*3/uL 150-400 [facility] Differential cell count method - Blood [facility] Neutrophils/100 leukocytes in Blood by Automated count 75 % [facility] Lymphocytes/100 leukocytes in Blood by Automated count 20 % [facility] Monocytes/100 leukocytes in Blood by Automated count 4 % [facility] Basophils/100 leukocytes in Blood by Automated count 1 % [facility] Neutrophils [#/volume] in Blood by Automated count 3.26 10*3/uL 1.8-7 .0 [facility] Lymphocytes [#/volume] in Blood by Automated count 0.84 10*3/uL 1.2-4 .0 L [facility] Monocytes [#/volume] in Blood by Automated count 0.16 10*3/uL 0-0.8 [facility] Basophils [#/volume] in Blood by Automated count 0.04 10*3/uL 0-0.2 [facility] ID Date Data Source [id number] 05/02/2019 02:10:26 PM EST [facility] Name Value Range Interpretation Code Description Data Varsha rce(s) Supporting Document(s) Natriuretic peptide.B prohormone N-Terminal [Mass/volu me] in Serum or Plasma 31 pg/mL <125 [facility] ID Date Data Source [id number] 05/02/2019 02:04:15 PM [facility] Name Value Range Interpretation Code Description Data Varsha rce(s) Supporting Document(s) Hepatitis C virus Ab [Presence] in Serum or Plasma by Immuno assay Non Reactive [facility] No serological evidence of active infect ion. If recent exposure is suspected, test for HCV RNA. ID Date Data Source [id number] 05/02/2019 11:41:46 AM [facility] Name Value Range Interpretation Code Description Data Varsha rce(s) Supporting Document(s) ABO and Rh group [Type] in Blood [facility] NEG05/04/2019Performed at [place] Blood group antibody screen [Presence] in Serum or Plasma PENDING [facility] 05/04/2019Performed at [place], [place] ID Date Data Source [id number] 05/02/2019 11:38:09 AM [facility] Name Value Range Interpretation Code Description Data Varsha rce(s) Supporting Document(s) Hemoglobin A1c/Hemoglobin.total in Blood by HPLC 5.1 % 4.0-6.0 [facility] (NOTE)<5.7% Average risk of diabetes (ADA)5.7-6.4% Increased risk of diabetes(ADA)>/= 6.5% Diagnostic for diabetes(ADA) Glucose mean value [Mass/volume] in Blood Estimated fr om glycated hemoglobin 100 mg/dL <126 [facility] ID Date Data Source [id number] 05/03/2019 08:47:30 AM [facility] Service Cmnt XXX-Imp : Microorganism XXX Cult : No growth (qualifier value) Name Value Range Interpretation Code Description Data Varsha rce(s) Supporting Document(s) ID Date Data Source [id number] 05/02/2019 11:43:30 AM [facility] Name Value Range Interpretation Code Description Data Varsha rce(s) Supporting Document(s) Color of Urine [facility] Clarity of Urine [facility] Specific gravity of Urine by Refractometry automated 1.016 1.003 -1.030 [facility] pH of Urine by Automated test strip 8.0 5.0-8.0 [facility] Protein [Mass/volume] in Urine by Automated test strip Neg [facility] Glucose [Mass/volume] in Urine by Automated test strip Neg [facility] Ketones [Mass/volume] in Urine by Automated test strip Neg [facility] Bilirubin.total [Presence] in Urine by Automated test strip Negative [facility] Hemoglobin [Presence] in Urine by Automated test strip Neg [facility] Leukocyte esterase [Presence] in Urine by Automated test strip Negative [facility] Nitrite [Presence] in Urine by Automated test strip Negati [facility] Leukocytes [#/area] in Urine sediment by Automated count 0 /HPF 0 -5 [facility] Erythrocytes [#/area] in Urine sediment by Automated count 0 /HPF 0-3 [facility] ID Date Data Source [id number] 04/23/2019 11:47:50 [facility] Name Value Range Interpretation Code Description Data Varsha rce(s) Supporting Document(s) Progress Note [facility] YMDTFx8hQnVMUsAi33/QZUekSJUil8AmJPbhEDs1RHbjTOCzL3YtFYI2jC3dDKI5VHlBRbYxCQeeKfOo lbm [file] AgICAgICAgICAgICAgICAgICAgICAgICAgICAgICAgICAgICAgICAgICAgICAgICAgDQogICAgICAgIC AgICAgICAgICAgICAgICAgICAgICAgICAgICAgICAg ICAgICAgICAgICAgICAgICAgICAgICAgICAgICAgICAgICAgICAgICAgICAgICAgICAgICAgICAgICAg DQogICAgICAgICAgICAgICAgICAgICAgICAgICAgICAgICAgICAgICAgICAgICAgICAgICAgICAgICAg ICAgICAgICAgICAgICAgICAgICAgICAgICAgICAgIC AgICAgICAgICAgDQogICAgICAgICAgICAgICAgICAgICAgICAgICAgICAgICAgICAgICAgICAgICAgIC AgICAgICAgICAgICAgICAgICAgICAgICAgICAgICAgICAgICAgICAgICAgICAgICAgICAgDQogICAgIC AgICAgICAgICAgICAgICAgICAgICAgICAgICAgICAg ICAgICAgICAgICAgICAgICAgICAgICAgICAgICAgICAgICAgICAgICAgICAgICAgICAgICAgICAgICAg ICAgDQogICAgICAgICAgICAgICAgICAgICAgICAgICAgICAgICAgICAgICAgICAgICAgICAgICAgICAg ICAgICAgICAgICAgICAgICAgICAgICAgICAgICAgIC AgICAgICAgICAgICAgDQogICAgICAgICAgICAgICAgICAgICAgICAgICAgICAgICAgICAgICAgICAgIC AgICAgICAgICAgICAgICAgICAgICAgICAgICAgICAgICAgICAgICAgICAgICAgICAgICAgICAgDQogIC AgICAgICAgICAgICAgICAgICAgICAgICAgICAgICAg ICAgICAgICAgICAgICAgICAgICAgICAgICAgICAgICAgICAgICAgICAgICAgICAgICAgICAgICAgICAg ICAgICAgDQogICAgICAgICAgICAgICAgICAgICAgICAgICAgICAgICAgICAgICAgICAgICAgICAgICAg ICAgICAgICAgICAgICAgICAgICAgICAgICAgICAgIC AgICAgICAgICAgICAgICAgDQogICAgICAgICAgICAgICAgICAgICAgICAgICAgICAgICAgICAgICAgIC AgICAgICAgICAgICAgICAgICAgICAgICAgICAgICAgICAgICAgICAgICAgICAgICAgICAgICAgICAgDQ m3B2rrNOEzDOEvUK0kJJg9Lq0+KWbDPfBmGIL2xmNz rG1FES6ms2PvAHpnPYMdl7RgENu1LM3XGZAeHZgvQX6ASVerkg1JPDJsOBKrhARHr3xqPeRdSHP2QSJf LrhwNJ6FRFOwQ7ownqTuRBDdLIHHCQbqVPDJBSmvUUSWPL1DRgMdY9QkiV76AYSAHm6+DQplbmRvYmoN AwT2XCCns2WoRAt4LK3RUMVnFfbul4XlGoRoBFVAXT idBZ5HADU4OVEoSBOxMw1GDTYmS990khFaUA3BRj9KAcBqFW8rhb3FFtNyVSUbDonBIau3NUxdHK6DxX FvYUfCbr0gxjJzghYAj2QdqmBlfNQQXEVfoaQotTyoK4WvZL3zGQ7SCXY2BNLeEtP5AwBbREelFAE8IH DuID6nQCguGF7RTWQ2XVmyGHIaCJSiG3oQYoKdHLUy AQKgnBdhJS7NBkOfO2NyupWdqJPzJFSqFOBEJv2+EOgjmhStJfwDQdOgHGPlc0QgJNl9SI6VWJSsPMkn CH7YLCEhrE3mFWnuTF4LCqFjUaMxJOMFPmRpP41btZNsGZq1D8OtJcLeWNXtBiumFYDwWNcuSkVxXGDj WyBdDQogID4+ID4+AWreEF5YJKvwaiKrGEDpSx8IUG CgZTBnWP1iKIDwUTLiC8J6aBjhUWYUYbIfQ8mxheynRG6sXBJyZ843cCtirtTeKWK3HVTdCz8SBKZvFF F9ETXjqDJwBjjhGOVDSOgmMZ6RcGVzUCA2fW7bVNrlUNTfPETfQ1vOIyMqwXknEU19hKqdrfUsmRVnAU o+Ff7VSY7ly7RqSZd7yfBbFLndLHXkKFbaIDOpHHCj IZHuCGJ4ZLU1CMKOTyCpNHXwAHJlOAyfFLJbDISmqy2HHBErHQZbKhd1VnFuCBDnCZKaNVnoIEKjSIU8 OPaeDAKjOGOpTP6HXrFtCKUmCLMzOAnhVKFfKZFrnj2TWOPnSXGtMDPhBvQbFTVkHBVnRUplDRDuZWF9 AWK1NYCsTDJeIH7FRsZwKEZhJNs6MwitJTAnUKHaxe 3AMFDnHUAoVtc8GvQxMXBiKWPbXWgnPFFjGLI4BVF9QLCqEMApEP7FUeScKFMdHSnfLPOpWRBdFENmxi 2AFSZwMAElGQSfPEVfWZNqRQEeICzsISGrJIYkHyI8MUCuCTHeFB1FRfYnFPYqFXVlOFXeBSEuCHQhkb 6KFCYrFOMoHRD3ZWYkIMZfGNQvCDbfEUDeZGDoUPCj VVAjNOHoIX7XDdQoMWGrOVN1YupbBMJhLMYdii9BZSLoRGUmIgS2RQTgZWGuIJZmXGthLKUrAXGjODt1 CPXpMXUwUX9FZmLyEMTlJeR0ORMiHGIeQBIhbn9KSMKrFYOvCqy2TnHgEBCgTRTxDRvnCMPwECS8RGl7 QATgZVYpIR4ZOzBrWHQbTvYeLHWiDZUnXLTyeq7VZH TgZSQlRROeWjFxNZGcYCFsZOhnPTCyBZJ1FUAsXBYhUCPdLN7CCsPfSFQqEtShYRTnWZSnCOGibv5XWP OuRKPcJhK4NKBbMQEkJMMkFOxkIFKvTEV2GdLqBCSjPBRnCB9BCxQxNUBuZhnrSQCbRYWnGTGyif0CXM FlBYAnWZFiDlRcNNSoILSyPWptZOQvJJU0Lfx9QCGp MUQkYJ6OHwFwIMHlJdd2CkCaQHUbJZKnia7XlCFgnOjork6COClVHv8NxQgiQKBdDIqcQc5ywBUlSWVo YFHGAf7CwhItNJWsQYDLIJcfSCYePUKiZOFqHWc1HFwmVGOwDFIpGuAkDuT6PtX9NQD1PkZjSzD5XxRr TONuXNRjNDV8D8FfHYDoDcEjOeYzAZJcWhKnABG+IF 0gDQo+Kb2Ty5FibpH8kfDxCWyeVDD4SX6RCJVEN5IDZa== Procedure Social History Code Duration Value Status Description Data Source(s ) Alcohol intake 12/16/2019 12:00:00 AM EDT Current drinker of al cohol (finding) completed Current drinker of alcohol (finding) [facility] Tobacco use and exposure 12/16/2019 12:00:00 AM EDT Never used co mpleted Never used [facility] Cigarette pack-years 12/16/2019 12:00:00 AM EDT UNK completed [facility] Cigarettes smoked current (pack per day) - Reported 12/16/19 12:00:00 AM EDT UNK completed [facility] Smoking 12/16/2019 12:00:00 AM EDT Former smoker completed Former smoker [facility] Alcohol intake 06/19/2019 12:00:00 AM EST Current drinker of al cohol (finding) completed Current drinker of alcohol (finding) [facility] Cigarette pack-years 06/19/2019 12:00:00 AM EST UNK completed [facility] Cigarettes smoked current (pack per day) - Reported 06/19/19 12:00:00 AM EST UNK completed [facility] Smoking 06/19/2019 12:00:00 AM EST Former smoker completed Former smoker [facility] Alcohol intake 06/03/2019 12:00:00 AM EST Current drinker of al cohol (finding) completed Current drinker of alcohol (finding) [facility] Cigarette pack-years 06/03/2019 12:00:00 AM EST UNK completed [facility] Cigarettes smoked current (pack per day) - Reported 06/03/19 12:00:00 AM EST UNK completed [facility] Smoking 06/03/2019 12:00:00 AM EST Former smoker completed Former smoker [facility] Alcohol intake 05/16/2019 12:00:00 AM EST Current drinker of al cohol (finding) completed Current drinker of alcohol (finding) [facility] Cigarette pack-years 05/16/2019 12:00:00 AM EST UNK completed [facility] Cigarettes smoked current (pack per day) - Reported 05/16/19 12:00:00 AM EST UNK completed [facility] Smoking 05/16/2019 12:00:00 AM EST Former smoker completed Former smoker [facility] Alcohol intake 05/02/2019 12:00:00 AM EST Current drinker of al cohol (finding) completed Current drinker of alcohol (finding) [facility] Cigarette pack-years 05/02/2019 12:00:00 AM EST UNK completed [facility] Cigarettes smoked current (pack per day) - Reported 05/02/19 12:00:00 AM EST UNK completed [facility] Smoking 05/02/2019 12:00:00 AM EST Former smoker completed Former smoker [facility] Vital Signs ID Date Data Source [id number] 12/16/2019 01:12:13 PM [facility] Name Value Range Interpretation Code Description Data Source(s) WEIGHT RECORDED 217 lb 217 lb [facility] Body height Measured 77.99 in 77.99 in [facility] ID Date Data Source [id number] 06/21/2019 10:08:23 AM [facility] Name Value Range Interpretation Code Description Data Source(s) WEIGHT RECORDED 217 lb 217 lb [facility] Body height Measured 77.99 in 77.99 in [facility] ID Date Data Source [id number] 06/03/2019 11:42:59 AM [facility] Name Value Range Interpretation Code Description Data Source(s) WEIGHT RECORDED 210 lb 210 lb [facility] Body height Measured 78 in 78 in [facility] ID Date Data Source [id number] 05/19/2019 10:21:38 AM [facility] Name Value Range Interpretation Code Description Data Source(s) WEIGHT RECORDED 203 lb 203 lb [facility] Body height Measured 78.58 in 78.58 in [facility] ID Date Data Source [id number] 05/13/2019 08:56:[address] [facility] Value Range Interpretation Code Description Data Source(s) WEIGHT RECORDED 217 lb 217 lb [facility] Body height Measured 78 in 78 in [facility] ID Date Data Source [id number] 04/23/2019 11:47:58 AM [facility] Name Value Range Interpretation Code Description Data Source(s) WEIGHT RECORDED 210 lb 210 lb [facility] Body height Measured 81 in 81 in [facility] Patient Treatment Plan of Care Planned Activity Planned Date Details Description Data Source (s) Sertraline 25 MG Oral Tablet 12/13/2019 12:00:00 AM [facility] 24 HR metoprolol succinate 25 MG Extended Release Oral Tablet 06/04/2019 12:00:00 AM [facility] Aspirin 81 MG Delayed Release Oral Tablet 05/19/2019 12:00:00 AM [facility] Oseltamivir 75 MG Oral Capsule 05/19/2019 12:00:00 AM [facility] Ascorbic Acid 500 MG Oral Tablet 05/19/2019 12:00:00 AM [facility] Folic Acid 1 MG Oral Tablet 05/19/2019 12:00:00 AM [facility] Warfarin Sodium 5 MG Oral Tablet 05/18/2019 12:00:00 AM [facility] ferrous sulfate 325 MG Oral Tablet 05/18/2019 12:00:00 AM [facility] Metoprolol Tartrate 25 MG Oral Tablet 05/18/2019 12:00:00 AM [facility] Acetaminophen 325 MG Oral Tablet 05/18/2019 12:00:00 AM [facility] POLYETHYLENE GLYCOL 3350 142 MG/ML Oral Solution 05/11/2019 08:00:0 0 AM [facility] Bacitracin 0.5 UNT/MG Topical Ointment 03/06/2019 12:00:00 AM [facility] Fluticasone Propionate 50 MCG/ACT Nasal Suspension ([place] ONASE) 08/24/2018 12:00:00 AM [facility] MAGNESIUM GLUCONATE 500 MG Oral Tablet [facility] Multiple Vitamins-Minerals (MULTIVITAMIN ADULT PO) [facility] Tab-A-Saundra/Beta Carotene Oral Tablet [facility] Cetirizine HCl (ZYRTEC PO) [facility] Euless-3 Fatty Acids (FISH OIL PO) [facility] Lactobacillus (PROBIOTIC ACIDOPHILUS PO) [facility] FIBER SELECT GUMMIES PO [facility]
[2020-05-13] MEDS ORDERED: LIDOCAINE 2% 100MG/5ML SDV (FOR ANES.) As Ordered ONE (13:14)
[2020-05-13] MEDS ORDERED: propofoL 200 MG/20 ML VIAL As Ordered ONE (13:14)
[2020-05-13] MEDS ORDERED: fentaNYL 100 MCG/2 ML INJECTION (J3010) As Ordered ONE (13:15)
--- NOTE | 2020-05-13 13:46 | ROOR ---
Patient Name: Kyle Locke Procedure Date: 05/13/2020 1:30 PM Date of : 1975 Age: 44 Room: [facility] Gender: Male Note Status: Finalized Procedure: Upper Endoscopy + Biopsies Indications: Suspected esophageal reflux, Follow-up of esophageal reflux, Chest pain (non cardiac) Providers: Berry Oneal MD Referring MD: THADDEUS TRAVIS MD Requesting Provider: Medicines: Monitored Anesthesia Care Complications: No immediate complications. Procedure: Pre-Anesthesia Assessment: - The heart rate, respiratory rate, oxygen saturations, blood pressure, adequacy of pulmonary ventilation, and response to care were monitored throughout the procedure. The Endoscope was introduced through the mouth, and advanced to the second part of duodenum. The upper GI endoscopy was accomplished without difficulty. The patient tolerated the procedure well. Findings: The Z-line was regular and was found 45 cm from the incisors. Multiple biopsies were obtained with cold forceps for evaluation to rule out Oh's Esophagus randomly at the gastroesophageal junction. No other significant abnormalities were identified in a careful examination of the stomach. The exam of the duodenum was otherwise normal. Impression: - Z-line regular, 45 cm from the incisors. - Multiple biopsies were obtained at the gastroesophageal junction. - The examination was otherwise normal. Recommendation: - Patient has a contact number available for emergencies. The signs and symptoms of potential delayed complications were discussed with the patient. Return to normal activities tomorrow. Written discharge instructions were provided to the patient. - Resume previous diet. - Discharge patient to home. - Follow an antireflux regimen. - Continue present medications. - Await pathology results. - Telephone GI clinic for pathology results in 1 week. - Return to referring physician. - The findings and recommendations were discussed with the patient. Procedure Code(s): --- Professional --- 15766, Esophagogastroduodenoscopy, flexible, transoral; with biopsy, single or multiple Diagnosis Code(s): --- Professional --- K21.9, Gastro-esophageal reflux disease without esophagitis R07.89, Other chest pain CPT copyright 2019 [employer]. All rights reserved. The codes documented in this report are preliminary and upon farm equipment technician review may be revised to meet current compliance requirements. Berry nOeal MD Berry Oneal MD 05/13/2020 1:46:15 PM Electronically signed by Berry Oneal MD Number of Addenda: 0 Note Initiated On: 05/13/2020 1:30 PM Estimated Blood Loss: Estimated blood loss: none.
[2020-05-13 14:00] VITALS: BP 138/83
== END 2020-05-13 14:15 | disposition home or self-care (01) ==
LOC: M OPP 11:49
PROVIDERS: ATTEND Internal Medicine Gastroenterology
DX: K21.9 Gastro-esophageal reflux disease without esophagitis (principal); R07.89 Other chest pain; R12 Heartburn; D13.1 Benign neoplasm of stomach; F41.9 Anxiety disorder, unspecified; Z87.891 Personal history of nicotine dependence; Z79.01 Long term (current) use of anticoagulants; Z79.899 Other long term (current) drug therapy
CPT/HCPCS: 43239; 88305; J3010

== ENCOUNTER → 2024-11-26 | Outpatient (CLI) | payer OTHER ==
[~2024-11-26] MED LIST changes: -NS 1,000 ML IV ONE; +OMEP-611 PO; -OMEP20TA9 PO
== END ==
LOC: M RAD 10:24
PROVIDERS: ATTEND Physician Assistant
DX: R10.84 Generalized abdominal pain (principal)